=== PATIENT | female | born 1965 | race Caucasian/White ===

== ENCOUNTER 2019-06-25 10:27 | Emergency (ER) | payer OTHER, SELFPAY ==
[2019-06-25 10:36] VITALS: BP 129/70; PULSE 101; RESP 18; TEMP 37.3; O2SAT 100
--- NOTE | 2019-06-25 10:52 | ED.URI ---
HPI - URI/Sore Throat General Chief Complaint: Upper Respiratory Infection Stated Complaint: sore throat/cough/congestion Time Seen by Provider: 06/25/19 10:45 Source: patient and RN notes reviewed Mode of arrival: ambulatory Limitations: no limitations History of Present Illness HPI Narrative: Patient presents today with a one-week history of nasal congestion, postnasal drainage, headache, nonproductive cough, sore throat. Reports that she felt like she was getting better after 5 days, but then worsened again. Reports is sick with similar symptoms. Denies fever, shortness of breath. No history of asthma or COPD. She has been using Tylenol and Delsym with mild relief. She is a non-smoker. She does not vape. MD elicited complaint: cough, nasal congestion and sinus pain Related Data Home Medications Medication Instructions Recorded Confirmed buspirone 10 mg BID 06/25/19 06/25/19 clomipramine 50 mg DAILY 06/25/19 06/25/19 clonazepam 0.5 mg BID 06/25/19 06/25/19 linaclotide [Linzess] 72 mcg DAILY 06/25/19 06/25/19 Allergies Allergy/AdvReac Type Severity Reaction Status Date / Time tramadol Allergy Unknown RASH Verified 10/30/14 08:15 Review of Systems Review of Systems: Narrative: CONSTITUTIONAL: Denies fever, chills, or sweats.+ Body aches EYES: Denies visual changes, redness, or discharge. ENT: Denies rhinorrhea, or otalgia.+ Congestion, sore throat, sinus pressure, postnasal drip, hoarseness CARDIOVASCULAR: Denies chest pain, palpitations, or edema. RESPIRATORY: Denies dyspnea.+ Cough GASTROINTESTINAL: Denies abdominal pain, nausea, vomiting, or diarrhea. GENITOURINARY: Denies dysuria or hematuria. SKIN: Denies rash, itching, or wounds. MUSCULOSKELETAL: Denies back pain, joint pain, or myalgia. NEUROLOGIC: Denies numbness, tingling, or weakness.+ Headache PSYCH: Denies depression or anxiety. [facility] Social History Social History (Updated 06/25/19 @ 10:54 by Radha Faye, COMPOUND WORKER, ) Smoking status: Never smoker Gender identity (if verbalized by the patient): Female Comments At time of signature, I have reviewed and agree with nursing past medical, surgical, social and family history unless otherwise noted. Please see nursing chart for further information. There is no relevant family history pertinent to the presenting complaint Exam Narrative: Exam Narrative: GENERAL: Well-appearing, well-nourished, and in no acute distress. HEAD: Normocephalic, atraumatic. EYES: EOMI. No redness or drainage. Conjunctivae normal. ENT: Mucous membranes pink and moist. Nares congested. Bilateral erythematous and swollen nasal turbinates with purulent discharge. Bilateral TMs are sands and dull. Throat normal. Uvula midline. Mild tenderness to the bilateral maxillary sinuses. No frontal sinus tenderness. NECK: Normal AROM. Supple. No lymphadenopathy. CHEST: No respiratory distress. Clear to auscultation. HEART: Regular rate and rhythm. No murmur appreciated. Normal peripheral pulses. EXTREMITIES: Normal range of motion. No edema. SKIN: Warm, dry, no rash. NEURO: No focal deficits. Alert and oriented x3. Gait steady. PSYCH: Normal affect. No signs of depression or anxiety. Course Vital Signs Vital signs: Vital Signs Temperature 99.2 F 06/25/19 10:36 Pulse Rate 101 H 06/25/19 10:36 Respiratory Rate 18 06/25/19 10:36 Blood Pressure 129/70 06/25/19 10:36 Pulse Oximetry 100 06/25/19 10:36 Temperature 99.2 F 06/25/19 10:36 Pulse Rate 101 H 06/25/19 10:36 Respiratory Rate 18 06/25/19 10:36 Blood Pressure 129/70 06/25/19 10:36 Pulse Oximetry 100 06/25/19 10:36 Reviewed. Pt has been instructed to follow up with her PCP regarding her elevated blood pressure today. MDM - URI/Sore Throat Differential Diagnosis Differential diagnosis: Likely upper respiratory infection, otitis media, sinusitis, viral infection, bronchitis and pharyngitis Critical Care Time Critical
== END 2019-06-25 10:59 | disposition home or self-care (01) ==
PROVIDERS: Emergency Provider Nurse Practitioner
DX: J40 Bronchitis, not specified as acute or chronic (principal); J01.00 Acute maxillary sinusitis, unspecified
CPT/HCPCS: 99203; G0463

== ENCOUNTER 2024-09-21 08:06 | Emergency (ER) | payer OTHER, SELFPAY ==
--- OUTSIDE RECORDS SUMMARY | 2024-09-21 08:08 | XMS_ITS | Clinical Summary ---
Author Organization [facility] al Address [address] [place] [address] Care Team Providers Care Management Retail Intern Name Role Phone RENÉE Berry Jr., Robert James Primary Care Provide r Allergies Active Allergy Reactions Criticality Noted Date Comments Cephalexin Anxiety Low 04/01/2016 Tramadol Rash Medium 11/11/2017 Medications folic acid/multivit -min/lutein (CENTRUM SILVER ORAL) 10/26/2016Centrum silver, po solid 400-250mcg Tablet, chewablePOdailyCurrent Medication 017 Active lutein-zeaxan thin 25-5 mg capsule 10/26/2016Lutein-zeaxanth in, po solid 25 mg-5 mg CapsulePOdailyCurrent Medication 017 Active simethicone (PHAZYME) 180 mg capsule as needed 017 Active cholecalcifer ol (cholecalcife rol) 25 mcg (1,000 unit) tablet 017 Active acetaminophen (TYLENOL EXTRA STRENGTH) 500 mg tablet TAKE 1 TABLET EVERY 4 TO 6 HOURS NEEDED. Active calcium carbonate (Calcium 600) 1,500 mg (600 mg of elemental calcium) tablet 600 mg 2 (two) times a day Active famotidine (PEPCID) 40 mg tablet Active Linzess 145 mcg capsule Active clomiPRAMINE (ANAFRANIL) 50 mg capsuleIndica tions:Anxiety Take 1 capsule (50 mg total) by mouth 3 (three) times a day 270 capsule 1 021 Active hydrOXYzine (ATARAX) 25 mg tablet Active clonazePAM (KlonoPIN) 0.5 mg tabletIndicat ions:Anxiety TAKE 2 TABLETS BY MOUTH TWICE DAILY 120 tablet 1 021 Active busPIRone (BUSPAR) 10 mg tabletIndicat ions:Anxiety TAKE 1 TABLET(10 MG) BY MOUTH THREE TIMES DAILY 90 tablet 11 021 Active meloxicam (MOBIC) 15 mg tabletIndicat ions:Osteoart hritis Take 1 tablet (15 mg total) by mouth daily 30 tablet 5 022 Active Active Problems Problem Noted Date Diagnosed Date Pelvic floor dysfunction in female 05/09/2021 Assessment & Plan (05/09/2021 11:08 AM LONG TERM CARE SOCIAL WORKER): -She reports some help with pelvic floor therapy and continues to practice the exercises and methods to help empty her bladder. -She previously tried tamsulosin for difficulty emptying but doesn't feel it helped. -She is interested in discussing Interstim device for further treatment of her urinary issues. Patient does report she will be moving to [place] early next year. I informed her it may take some time to get in with Dr. Waters and she may want to consider finding someone locally in [place] to do procedure so they can monitor locally. We will schedule her with Dr. Waters for now but she will look for urologist in [place] area. PLAN: -Schedule f/u with Dr. Waters for further discussion of possible Interstim device. -Stop tamsulosin. Voiding dysfunction 01/09/2021 Assessment & Plan (01/09/2021 2:11 PM CDT): -Discussed results of urodynamics testing with patient. She is already on flomax and reports it does seem to help with her voiding. -She reports issues with voiding mostly in the evening before she goes to bed. She states that she will urinate and then a few minutes later is able to void again. As long as she is at home and in comfortable place, she is able to urinate fine. PLAN: -Continue flomax. -Referral to pelvic floor therapy. Urinary retention with incomplete bladder emptyi ng 09/23/2020 Assessment & Plan (09/23/2020 3:18 PM CDT): -Ongoing for about 4 years. -Previously evaluated by outside urologist (Dr. Hemal Bush) who performed testing and placed on tamsulosin. She has been on this medication for several years. She reports that previous testing was years ago and was normal as far as she knows. -She denies flank pain. -Had her try to urinate again and repeated PVR. This was 190mL PLAN: -Continue tamsulosin 0.4mg nightly. -Schedule for urodynamics. -Renal US due to retention and 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 Right arm numbness 09/11/2020 Assessment & Plan (11/19/2020 1:17 PM CDT): Patient continues with neck pain with radiating numbness throughout the right arm. Cervical spondylosis with foraminal stenosis is noted. I will place her through a course of physical therapy. I have asked her to call this office following completion. If she has symptomatic benefit than observation would be appropriate. If she does continue to have ongoing symptoms following physical therapy than a course of cervical epidural steroids could be considered. Assessment & Plan (09/11/2020 9:00 AM CDT): Patient describes fluctuant right arm numbness diffusely following manipulation with physical therapy for a previous right shoulder injury. She does have some accompanying neck pain. EMG/NCS reveals only borderline prolongation in the right median motor DML. Entrapment neuropathy would not account for her diffuse arm symptoms. I will obtain an MRI of the cervical spine to exclude disc herniation which could account for symptoms attributable to cervical radiculopathy. I will see her back thereafter. Class 1 obesity due to exces s calories without serious comorbidity with body mass index (BMI) of 30.0 to 30.9 in adult 12/22/2019 Assessment & Plan (12/22/2019 10:40 AM CDT): Educated patient on healthy diet/exercise plan. Exercise 150min-300min per week of moderate intensity. Diet: good, healthy protein (eggs, nuts, peanut butter, chicken, fish, turkey, less pork/beef), lots of vegetables, less carbohydrates and less sugar. 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 Overview (12/23/2018): diet mountain dew Bilateral carpal tunnel syndrome 05/28/2017 Mass of hand 01/06/2017 Mucous cyst of finger 01/06/2017 Anemia, iron deficiency 10/26/2016 Cystocele, unspecified (CODE) 09/22/2016 Rectocele 09/22/2016 Anxiety 03/30/2016 S/P breast reconstruction 02/12/2016 Breast cancer 12/27/2015 Dorsalgia, unspecified 12/27/2015 Irritable colon 12/27/2015 Congenital spondylolisthesis of lumbar region Depression 09/03/2015 Obsessive-compulsive disorder 09/03/2015 Osteopenia 08/29/2015 Hot flash due to medication 02/14/2015 Malignant neoplasm of breast 03/29/2014 Arthralgia of ankle 06/23/2013 Resolved Problems Problem Noted Date Diagnosed Date Resolved Date Postmenopausal bleeding 12/23/201812/22 Hot flashes 01/06/2018 12/22/2019 Vaginal odor 10/15/2017 12/22/2019 Screening for malignant neoplasm of cervix 12/27/2015 12/22/2019 Absence of breast 07/30/2015 03/18/2021 Hypoglycemia 10/07/2013 07/08/2018 Overview (08/27/2016): HYPOGLYCEMIA NOS Impaired fasting glucose 10/07/2013 Overview (08/27/2016): IMPAIRED FASTING GLUCOSE Vitamin D deficiency 10/07/2013 019 Overview (08/27/2016): VITAMIN D DEFICIENCY NOS Encounters Date Type Department Care Team Description 09/07/2024 Telephone [facility] Ophthalmology [address] [place] [address] Jai Padron MD new pt from Last 3 Months Immunizations Immunization Administration Dates Next Due Hep B Vaccine 07/10/1993,03/05/1993,01/29/1993 Influenza, Quadrivalent, Aleksandra l Culture-based MDCK, Preservative Free, Antibiotic Free, Intramuscular 03/09/2019 Influenza, Quadrivalent, Hig h Dose, Preservative Free, Intrr 03/19/2021 Influenza, Quadrivalent, Spl it, Preservative Free, Intramuscular 02/06/2020,02/14/2018,02/13/2018,02/22 Influenza, Trivalent, IM (MDV) 03/01/2014 Influenza, Trivalent, Preser vative Free, Intramuscular 03/04/2016 Influenza, Unspecified 10/26/2016,2015,10/30/2015,07/30,12/17/2014,10/29/2014 MMR 03/05/2004,01/30/2004 OPV 10/24/1993 PPD TEST 09/21/2017 Pfizer SARS-CoV-2 Monovalent Vaccination (12+ Yrs) PURPLE 09/06/2020,08/16/2020 Td, adsorbed 10/21/1999,10/01/1999,02/28/1990 Tdap 11/10/2017,11/09/2017,09/05/2009 ZOSTER LIVE 10/26/2016, 6,10/30/2015,07/30 ZOSTER Recombinant 07/11/2018,03/31/2018 Surgical History Surgery Date Site/Laterality Comments BACK SURGERY Back Surgery - (Added by TW Conv) MASTECTOMY Breast Surgery Mastectomy - (Added by TW Conv) BREAST SURGERY Breast Surgery Reconstruction - (Added by TW Conv) BREAST BIOPSY CARPAL TUNNEL RELEASE Medical History Medical History Date Comments Anxiety disorder Anxiety and dep ression - (Added by TW Conv) Personal history of diseases of the blood and blood-forming organs and certain disorders involving the immune mechanism History of an emia - (Added by TW Conv) Personal history of other me dical treatment History of blood transfusion - (Added by TW Conv) Disease of intestine Bowel troub le - (Added by TW Conv) Personal history of other di seases of the musculoskeletal system and connective tissue History of arthritis - (Adde d by TW Conv) Breast cancer (HCC) Depression Hypertension Family History Medical History Relation Name Comments Diabetes Brother Family history of diabetes mellitus - (Added by TW Conv) Lung cancer Father Family history of lung cancer - (Added by TW Conv) Diabetes Maternal Grandfather Family history of diabetes mellitus - Relation: Grandfather (Added by TW Conv) Hypertension Mother Family history of hypertension - (Added by TW Conv) Osteoporosis Mother Family history of osteoporosis - (Added by TW Conv) Diabetes type II Other Family hist ory of Diabetes -Type 2; Parkinsonism Paternal Grandmother Parkinsonism Paternal cousin first Anxiety disorder Sister Depression Sister Relation Name Status Comments Brother Alive Daughter Alive Father Maternal Grandfather Mother Alive Other Paternal Grandmother Paternal cousin first Sister Alive Social History Tobacco Use Types Packs/Day Years Used Date Smoking Tobacco: Never Smokeless Tobacco: Never Alcohol Use Standard Drinks/Week Comments No 0 (1 standard drink = 0.6 oz pur e alcohol) AUDIT-C Answer Date Recorded Q1: How often do you have a drink containing alc ohol? Never 04/01/2021 Average Number of Drinks Not on file 021 Q3: How often do you have si x or more drinks on one occasion? Never 04/01/2021 PHQ-2 Answer Date Recorded PHQ-2 Total Score (If total score is 3 or more points, staff should administer the PHQ-9) 0 05/02/2021 Comments No Sex and Gender Information Value Date Recorded Sex Assigned at Not on file Legal Sex Female 1:17 AM LONG TERM CARE SOCIAL WORKER Gender Identity Not on file Sexual Orientation Not on file Obstetrics History Para Term AB IAB SAB Ectopic Multiple Livin g Live Births 4 4 4 4 4 Date Outcome GA Total Labor Labor/2nd/3rd Weight Sex Type Anes PTL Elizabeth A1 A5 Name Clin 1983 Term 3.719 kg (8 lb 3.2 oz) Vag-S pont Living Complications:None 1986 Term 3.692 kg (8 lb 2.2 oz) M Vag-S pont Living Complications:None 1989 Term 3.683 kg (8 lb 1.9 oz) M Vag-S pont Living 1991 Term 3.719 kg (8 lb 3.2 oz) F Vag-S pont Living Complications:None Comments 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 G4,P4. LMP 04/2014. Last Filed Vital Signs Vital Sign Reading Time Taken Comments Blood Pressure 136/87 05/30/2021 11:15 AM LONG TERM CARE SOCIAL WORKER Pulse 90 05/30/2021 11:15 AM LONG TERM CARE SOCIAL WORKER Temperature 36.3 C (97.3 F) 05/30/2021 11:15 AM LONG TERM CARE SOCIAL WORKER Respiratory Rate 16 05/30/2021 11:1 5 AM LONG TERM CARE SOCIAL WORKER Oxygen Saturation 99% 05/30/2021 11: 15 AM LONG TERM CARE SOCIAL WORKER Inhaled Oxygen Concentration - - Weight 84.7 kg (186 lb 12.8 oz) 022 11:15 AM LONG TERM CARE SOCIAL WORKER Height 159.5 cm (5' 2.8 ) 05/30/2021 11 :15 AM LONG TERM CARE SOCIAL WORKER Body Mass Index 33.31 05/30/2021 11:15 AM LONG TERM CARE SOCIAL WORKER Plan of Treatment Health Maintenance Due Date Last Done Comments Hepatitis C Screening 1965 Cervical Cancer Screening 01/06/2020 01/05/2019, 09/2015 Regular Well Visit/Exam 18-64 03/19/2022 03/19/2021, 12/31/2020, 02/06/2020, Additional history exists Depression Screening 05/02/2022 05/02/2021, 04/01/2021, 03/19/2021, Additional history exists Covid-19 Vaccine ( season) 2024 04/30/2021, 09/06/2020, 08/16/2020 Influenza Vaccine (Season Ended) 2025 03/20/2022, 03/19/2021, 02/06/2020, Additional history exists Colon Cancer Screening-Colonoscopy 03/14/2025 03/14/2015 DTaP/Tdap/Td Vaccine (4 - Td or Tdap) 11/11/2027 11/10/2017, 11/09/2017, 09/05/2009, Additional history exists Hepatitis B Screening Completed 07/10/1993 , 03/05/1993, 01/29/1993 Colon Cancer Screening-CT Colonography Discontinued 03/14/2015 Colon Cancer Screening-DNA Stool Discontinued 03/14/2015 Colon Cancer Screening-FIT Discontinued 03/14/2015 Colon Cancer Screening-Sigmoidoscopy Discontinued 03/14/2015 Breast Cancer Screening-Mammogram Discontinued 06/09/2017 Zoster Vaccine Completed 07/11/2018, 11/0 12/2017, 10/26/2016, Additional history exists Pneumococcal vaccine <65 Aged Out No longer eligible based on patient's age to complete this topic Procedures Procedure Name Priority Date/Time Associated Diagnosis Comments PAP SMEAR WITH HPV Routine 01/05/2019 SCREENING MAMMOGRAM Routine 06/09/2017 8 :07 PM LONG TERM CARE SOCIAL WORKER COLONOSCOPY Routine 03/14/2015 from Last 3 Months or Most Recently Relevant to Health Maintenance Results * PAP SMEAR WITH HPV (01/05/2019) HM Pap smear Normal us Historical Provider MD HEALTH MAINTENANCE Final Result * Screening Mammogram (06/09/2017 8:07 PM LONG TERM CARE SOCIAL WORKER) Anatomical Region Laterality Modality Breast N/A Mammography 06/09/2017 8:07 PM LONG TERM CARE SOCIAL WORKER Narrative 06/09/2017 10:46 PM LONG TERM CARE SOCIAL WORKER SUSIE BRO M.D. FINAL REPORT ACC# Date Time Exam [id number] Jun 09, 2017 15:04:00 [facility] [id number] Chest Sonogram L [id number] Jun 09, 2017 14:07:00 [facility] [id number] [employer] CAD, unilat L Technologist(s): June Ennis; ; EXAMINATION: LEFT UNILATERAL DIGITAL DIAGNOSTIC MAMMOGRAM INCLUDING CAD HISTORY: This is a 51-year-old status post bilateral mastectomies in 2013. She currently has silicone implants and feels a bubble for several months over the left chest COMPARISON: None TECHNIQUE: Full field digital mammographic views of the LEFT breast were performed, including computer aided detection (CAD). BREAST PARENCHYMAL COMPOSITION: The breasts are almost entirely fatty. MAMMOGRAM FINDINGS: Metallic markers were placed over the area palpable concern. A silicone implant is seen in very scant tissue is noted. To the extent of visualization there are no suspicious findings. In particular, there is no mammographic abnormality to correlate with the area palpable concern in the left. Left breast sonogram: Examination of the area palpable concern reveals numerous implant radial folds which correlate with palpable abnormality. In the scant amount of tissue present, there is no suspicious mass seen. IMPRESSION: The area palpable concern in the left chest is consistent with palpating radial folds in the silicone implant. There are no suspicious masses. OVERALL FINAL ASSESSMENT: BI-RADS Category 1: Negative. Continued clinical follow-up is recommended. This has been discussed with the patient. Electronically signed by: Susie Bro M.D. Requested By: Swati Mi M.D. Dictated By: SUSIE BRO M.D. on Jun 09 2017 4:44P This document has been electronically signed by: SUSIE BRO M.D. on Jun 09 2017 4:44P [id number] BRO M.D. FINAL REPORT Attending: SWATI MI Requesting: Swati Mi Requesting Fax: Attending Fax: Attending ID: [id number] Requesting ID: [id number] Report To 1 ID: [id number] Report To 1 Name: , Report To 1 FAX: NextGen Order #: Procedure Note Miscellaneous, Not In File - 06/09/2017 SUSIE BRO M.D. FINAL REPORT ACC# Date Time Exam [id number] Jun 09, 2017 15:04:00 [facility] [id number] Chest Sonogram L [id number] Jun 09, 2017 14:07:00 [facility] [id number] [employer] CAD, unilat L Technologist(s): June Ennis; ; EXAMINATION: LEFT UNILATERAL DIGITAL DIAGNOSTIC MAMMOGRAM INCLUDING CAD HISTORY: This is a 51-year-old status post bilateral mastectomies in 2013. She currently has silicone implants and feels a bubble for several months over the left chest COMPARISON: None TECHNIQUE: Full field digital mammographic views of the LEFT breast were performed, including computer aided detection (CAD). BREAST PARENCHYMAL COMPOSITION: The breasts are almost entirely fatty. MAMMOGRAM FINDINGS: Metallic markers were placed over the area palpable concern. A silicone implant is seen in very scant tissue is noted. To the extent of visualization there are no suspicious findings. In particular, there is no mammographic abnormality to correlate with the area palpable concern in the left. Left breast sonogram: Examination of the area palpable concern reveals numerous implant radial folds which correlate with palpable abnormality. In the scant amount of tissue present, there is no suspicious mass seen. IMPRESSION: The area palpable concern in the left chest is consistent with palpating radial folds in the silicone implant. There are no suspicious masses. OVERALL FINAL ASSESSMENT: BI-RADS Category 1: Negative. Continued clinical follow-up is recommended. This has been discussed with the patient. Electronically signed by: Susie Bro M.D. Requested By: Swati Mi M.D. Dictated By: SUSIE BRO M.D. on Jun 09 2017 4:44P This document has been electronically signed by: SUSIE BRO M.D. on Jun 09 2017 4:44P [id number] BRO M.D. FINAL REPORT Attending: SWATI MI Requesting: Swati Mi Requesting Fax: Attending Fax: Attending ID: [id number] Requesting ID: [id number] Report To 1 ID: [id number] Report To 1 Name: , Report To 1 FAX: NextGen Order #: [id number] Mi MD IMG MAMMO PROCEDURES Final Result * Colonoscopy (03/14/2015) Anatomical Region Laterality Modality Other Historical Provider ENDOSCOPY PROCEDURES Dorene l Result from Last 3 Months or Most Recently Relevant to Health Maintenance Insurance [facility] CLAIMS COMMERCIAL GENERIC Member Subscriber Plan / Payer (Ef fective 2018-Present) Name:Lyubov Steinberg Relation to Subscriber:Self Name:IdrisLyubov szymanski Payer ID:[id number] Type:COMMERCIAL Address: [place] [id number] COMMERCIAL GENERIC Member Subscriber Plan / Payer ( fective 2018-Present) Name:Lyubov Steinberg Relation to Subscriber:Self Name:LYUBOV STEINBERG Payer ID:[id number] Type:COMMERCIAL Address: [place] [id number] Care Teams Management Retail Intern Relationship Specialty Start Date End Date Barney Berry Jr., PA [address] [place] [id number] PCP - General 07/29/16
--- OUTSIDE RECORDS SUMMARY | 2024-09-21 08:08 | XMS_ITS | Encounter Summary ---
Author Organization [facility] Care Team Providers Care Drier Attendant Name Role Phone RENÉE Berry Jr., Barney Odom Primary Care Provide r Encounter Details Date Type Department Care Team (Latest Contact Info) Description 09/30/2015 Orders Only [facility] CLINCONV Provider, MD Lesli [address] [place] [id number] Social History Tobacco Use Types Packs/Day Years Used Date Smoking Tobacco: Never Assessed Alcohol Use Standard Drinks/Week Comments No 0 (1 standard drink = 0.6 oz pur e alcohol) Comments Unknown Sex and Gender Information Value Date Recorded Sex Assigned at Not on file Legal Sex Female 1:17 AM CREDIT REPORT CHECKER Gender Identity Not on file Sexual Orientation Not on file documented as of this encounter Plan of Treatment Not on file documented as of this encounter Procedures Procedure Name Priority Date/Time Associated Diagnosis Comments CARDIOLOGY REPORT 09/30/2015 12: 00 AM CDT documented in this encounter Results * CARDIOLOGY REPORT (09/30/2015 12:00 AM CDT) Anatomical Region Laterality Modality Other Narrative 09/30/2015 12:00 AM CDT Ordered by an unspecified provider. Historical Provider [facility] NATACHA SRINIVASAN Final Result documented in this encounter Visit Diagnoses Not on filedocumented in this encounter Care Teams Drier Attendant Relationship Specialty Start Date End Date Barney Berry Jr., PA [facility] [address] PCP - General 07/29/16 documented as of this encounter
--- OUTSIDE RECORDS SUMMARY | 2024-09-21 08:08 | XMS_ITS | Clinical Summary ---
Author Organization [facility] Address [address] [place] [address] Care Team Providers Care Business Manager Name Role Phone Unavailable Primary Care Provider Unavailabl e Source Comments [facility],non-owned Affiliates and Associated Physician Practices is amultiple site organization consisting of ambulatory clinics and hospital sitesin [place], [place], [place] and [place]. This disclosure is being madepursuant to the Care Everywhere program and may not contain all information available regarding this patient. Last updated 18.[facility] [employer] Social History Tobacco Use Types Packs/Day Years Used Date Smoking Tobacco: Never Assessed Comments Unknown Sex and Gender Information Value Date Recorded Sex Assigned at Not on file Legal Sex Female 7:07 PM TECHNICAL PROGRAMS MANAGER Gender Identity Not on file Sexual Orientation Not on file Plan of Treatment Health Maintenance Due Date Last Done Comments COLOGUARD (AGES 45-75) - COLON CA SCREENING 1963 COLON MONITORING 1963 COLONOSCOPY - COLON CA SCREENING 1963 CT COLONOGRAPHY - COLON CA SCREENING 1963 Colorectal Cancer Screening 1963 FIT - COLON CA SCREENING 1963 FLEX SIG - COLON CA SCREENING 1963 MAMMOGRAM 1963 HIV SCREENING 10/02/1978 DTAP/TDAP/TD VACCINES (1 - Tdap) 10/02/1982 PNEUMOCOCCAL VACCINE 50+ (1 of 1 - PCV) 10/02/2013 ZOSTER VACCINE (1 of 2) 10/02/2013 COVID-19 VACCINE ( season) 2024 06/01/2022, 09/06/2020, 08/16/2020 DEPRESSION SCREENING 05/24/2024 PAP SMEAR 03/22/2026 03/22/2023, 03/22/2023 LIPID TESTING 07/26/2029 07/26/2024 Respiratory Syncytial Virus (RSV) Vaccine Pt: or over 60 yrs (1 - 1-dose 75+ series) 10/02/2038 INFLUENZA VACCINE Completed 02/15/2024, , 02/06/2020, Additional history exists HEPATITIS C SCREENING Completed 08/31/2024 HEPATITIS B VACCINE Aged Out No longe r eligible based on patient's age to complete this topic HIB VACCINE Aged Out No longer eligi ble based on patient's age to complete this topic HPV VACCINE Aged Out No longer eligi ble based on patient's age to complete this topic MENINGOCOCCAL (Group B) VACCINE SHARED DECISION-MAKING Aged Out No longer eligible based on patient's age to complete this topic MENINGOCOCCAL GROUPS A/C/Y/W VACCINE Aged Out No longer eligible based on patient's age to complete this topic Insurance [facility]
--- OUTSIDE RECORDS SUMMARY | 2024-09-21 08:08 | XMS_ITS | Encounter Summary ---
Author Organization [facility] Facility Care Team Providers Care Solar Energy System Installer Helper Name Role Phone RENÉE Berry Jr., Barney Odom Primary Care Provide r Encounter Details Date Type Department Care Team (Latest Contact Info) Description 05/12/2016 Orders Only [facility] CLINCONV Provider, MD Lesli [address] [place] [address] Social History Tobacco Use Types Packs/Day Years Used Date Smoking Tobacco: Never Assessed Alcohol Use Standard Drinks/Week Comments No 0 (1 standard drink = 0.6 oz pur e alcohol) Comments Unknown Sex and Gender Information Value Date Recorded Sex Assigned at Not on file Legal Sex Female 1:17 AM ESTATE PLANNING ATTORNEY Gender Identity Not on file Sexual Orientation Not on file documented as of this encounter Plan of Treatment Not on file documented as of this encounter Procedures Procedure Name Priority Date/Time Associated Diagnosis Comments PROCEDURE - RESULT 05/12/2016 12 :00 AM ESTATE PLANNING ATTORNEY PROCEDURE - RESULT 05/12/2016 12 :00 AM ESTATE PLANNING ATTORNEY documented in this encounter Results * PROCEDURE - RESULT (05/12/2016 12:00 AM ESTATE PLANNING ATTORNEY) Narrative 05/12/2016 12:00 AM ESTATE PLANNING ATTORNEY Ordered by an unspecified provider. Historical Provider Final Res ult * PROCEDURE - RESULT (05/12/2016 12:00 AM ESTATE PLANNING ATTORNEY) Narrative 05/12/2016 12:00 AM ESTATE PLANNING ATTORNEY Ordered by an unspecified provider. us Historical Provider MD Final Res ult documented in this encounter Visit Diagnoses Not on filedocumented in this encounter Care Teams Solar Energy System Installer Helper Relationship Specialty Start Date End Date Barney Berry Jr., PA [address] [place] [id number] PCP - General 07/29/16 documented as of this encounter
--- OUTSIDE RECORDS SUMMARY | 2024-09-21 08:08 | XMS_ITS | Clinical Summary ---
Author Organization [facility] Address [address] [place] [address] Care Team Providers Care Dot Etcher Apprentice Name Role Phone Unavailable Primary Care Provider Unavailabl e Social History Tobacco Use Types Packs/Day Years Used Date Smoking Tobacco: Never Assessed Comments Unknown Sex and Gender Information Value Date Recorded Sex Assigned at Not on file Legal Sex Female 7:33 PM CDT Gender Identity Not on file Sexual Orientation Not on file Plan of Treatment Health Maintenance Due Date Last Done Comments Cervical Cancer Screening Pa p Smear (Age 30 to 64) Every 3 Years 1963 Colorectal Cancer Screening Colonoscopy (10 Years) 1963 Annual Physical 10/02/1966 Hepatitis C 10/02/1981 DTaP, Tdap and Td Vaccines ( 1 - Tdap) 10/02/1982 Cervical Cancer Screening Pa p with HPV Testing (Age 30 to 64) Every 5 Years 10/02/1993 Cervical Cancer Screening with HPV 10/02/1993 Mammogram Screening 2003 Pneumococcal Vaccine: 50+ Ye ars (1 of 1 - PCV) 10/02/2013 Zoster Vaccines (1 of 2) 10/02/2013 COVID-19 Vaccine (2023-2 5 season) 2024 RSV Immunization or 60+ Years (1 - 1-dose 75+ series) 10/02/2038 Meningococcal B Vaccine Aged Out No l onger eligible based on patient's age to complete this topic Meningococcal Vaccine Aged Out No lizandro rosie eligible based on patient's age to complete this topic RSV Immunizations Under 20 Months Aged Out No longer eligible based on patient's age to complete this topic
--- OUTSIDE RECORDS SUMMARY | 2024-09-21 08:08 | XMS_ITS ---
Author Organization [facility] Address [address] [place] [address] Care Team Providers Care Fire Extinguisher Sprinkler Inspector Name Role Phone RENÉE Berry Jr., Barney Odom Primary Care Provide r Active Problems Problem Noted Date Diagnosed Date Pelvic floor dysfunction in female 05/09/2021 Assessment & Plan (05/09/2021 11:08 AM MENTAL HEALTH ASSOCIATE): -She reports some help with pelvic floor therapy and continues to practice the exercises and methods to help empty her bladder. -She previously tried tamsulosin for difficulty emptying but doesn't feel it helped. -She is interested in discussing Interstim device for further treatment of her urinary issues. Patient does report she will be moving to [place] early next year. I informed her it may take some time to get in with Dr. Waters and she may want to consider finding someone locally in [place] to do procedure so they can monitor locally. We will schedule her with Dr. Waters for now but she will look for urologist in [place] area. PLAN: -Schedule f/u with Dr. Waters [...] of vegetables, less carbohydrates and less sugar. 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 Past Treatment and Therapy Plans Oncology Chemotherapy Treatment Plan Name Start Date Discontinue Date Treatment Medications Discontinue Reason Plan Provider Cycles Goserelin 28 Day Cycles - Breast 8 05/21/2023 goserelin (ZOLADEX) Automatic discontinuation of dormant plans Amy Thompson MD 21 of 21 cycles started Oncology Supportive Care Plan Name Start Date Discontinue Date Treatment Medications Discontinue Reason Plan Provider ZOLEDRONIC ACID (ZOMETA) INFUSION 06/12/2019 08/03/2023 No medications scheduled. Automatic discontinuation of dormant plans Deidra Shankar NP Specialty Infusion Treatment Plan Name Start Date Discontinue Date Treatment Medications Discontinue Reason Plan Provider DENOSUMAB (PROLIA) INJECTION 11/11/2017 06/01/2019 No medications scheduled. Therapy Complete Amy Thompson MD Resolved Problems Problem Noted Date Diagnosed Date [...]
--- OUTSIDE RECORDS SUMMARY | 2024-09-21 08:08 | XMS_ITS | Encounter Summary ---
Author Organization [facility] Facility Care Team Providers Care Elect Equip Maint Eng Name Role Phone RENÉE Berry Jr., Barney Odom Primary Care Provide r Encounter Details Date Type Department Care Team (Latest Contact Info) Description 08/04/2017 Orders Only [facility]G CLINCONV Provider, MD Lesli [address] [place] [address] Social History Tobacco Use Types Packs/Day Years Used Date Smoking Tobacco: Never Alcohol Use Standard Drinks/Week Comments No 0 (1 standard drink = 0.6 oz pur e alcohol) Comments Unknown Sex and Gender Information Value Date Recorded Sex Assigned at Not on file Legal Sex Female 1:17 AM WASTE SPECIALIST Gender Identity Not on file Sexual Orientation Not on file documented as of this encounter Plan of Treatment Not on file documented as of this encounter Procedures Procedure Name Priority Date/Time Associated Diagnosis Comments PROCEDURE - RESULT 08/04/2017 12 :00 AM CDT documented in this encounter Results * PROCEDURE - RESULT (08/04/2017 12:00 AM CDT) Narrative 08/04/2017 12:00 AM CDT Ordered by an unspecified provider. Historical Provider Final Res ult documented in this encounter Visit Diagnoses Not on filedocumented in this encounter Care Teams Elect Equip Maint Eng Relationship Specialty Start Date End Date Barney Berry Jr., PA [facility] [address] PCP - General 07/29/16 documented as of this encounter
--- OUTSIDE RECORDS SUMMARY | 2024-09-21 08:08 | XMS_ITS | Encounter Summary ---
Author Organization [facility] Address [address] [place] [address] Care Team Providers Care Operations Logistics Analyst Name Role Phone Unavailable Primary Care Provider Unavailabl e Encounter Details Date Type Department Care Team (Late st Contact Info) Description 10/14/2020 Lab Requisition [facility] [address] [place] [id number] Titus Ruby MD [address] [place] [address] Social History Tobacco Use Types Packs/Day Years Used Date Smoking Tobacco: Never Assessed Comments Unknown Sex and Gender Information Value Date Recorded Sex Assigned at Not on file Legal Sex Female 7:07 PM BUILDING SERVICES COORDINATOR Gender Identity Not on file Sexual Orientation Not on file documented as of this encounter Plan of Treatment Not on file documented as of this encounter Procedures Procedure Name Priority Date/Time Associated Diagnosis Comments DERMATOPATHOLOGY Routine 10/10/2020 12:0 0 AM CDT documented in this encounter Results * DERMATOPATHOLOGY (10/10/2020 12:00 AM CDT) Case Report Dermatopathology Report Case: [id number] Authorizing Provider: Titus Ruby MD Collected: 10/10/2020 12:00 AM Ordering Location: [facility] Received: 10/14/2020 06:15 AM Pathologist: Fawad Fink MD Specimen: Skin, right nasal sw 05/25/202 1 4:37 PM CDT DERMATOPATHOLOGY LABORATORY Final Diagnosis Specimen A. SKIN, right nasal sw: BASAL CELL CARCINOMA, NODULAR TYPE (C44.311) 4:37 PM CDT DERMATOPATHOLOGY LABORATORY Clinical History AK vs BCCA. Path#[id number] 4:37 PM CDT DERMATOPATHOLOGY LABORATORY Gross Description Specimen A: Received is one formalin filled container labeled with the patient's name and designated right nasal sw. The specimen consists of a shave biopsy measuring 6x4x1 mm. Jar 0. 4:37 PM CDT DERMATOPATHOLOGY LABORATORY Microscopic Description Specimen A. SKIN, right nasal sw: Within the dermis there are aggregates of basaloid cells with a high nuclear to cytoplasmic ratio and peripheral palisading. 4:37 PM CDT DERMATOPATHOLOGY LABORATORY Disclaimer An external and internal positive and negative controls are appropriate for the histochemical, immunohistochemical and immunofluorescence stain(s) in this case (if any), except where stated explicitly. The performance characteristics of the stain(s) cited in this report were developed and its performance characteristic determined by the Dermatopathology Laboratory at [facility], directed by Dr. Ericka Fink. These tests need not be, and therefore are not, approved by the [place] Food and Drug Administration. The tests are used for clinical purposes. Billing Codes Specimen Charges Stain Charges 80458 1 4:37 PM CDT DERMATOPATHOLOGY LABORATORY Embedded Images 4:37 PM CDT DERMATOPATHOLOGY LABORATORY Pathology/Cytolog y TISSUE SPECIMEN FROM SKIN / Unknown 10/10/2020 10/14/2020 6:15 AM CDT us Titus Ruby MD LAB - PATHOLOGY/CYTOLOGY ORDER DEVIN Final Result DERMATOPATHOLOGY LABORATORY [facility] - Department of Dermatology [address] [place] [address], [place] [phone] documented in this encounter Visit Diagnoses Not on filedocumented in this encounter
--- OUTSIDE RECORDS SUMMARY | 2024-09-21 08:08 | XMS_ITS | Encounter Summary ---
Author Organization [facility] Facility Care Team Providers Care Service Associate Name Role Phone RENÉE Berry Jr., Barney Odom Primary Care Provide r Encounter Details Date Type Department Care Team (Latest Contact Info) Description 09/14/2017 Orders Only MMG CLINCONV Provider, MD Lesli [address] [place] [address] Social History Tobacco Use Types Packs/Day Years Used Date Smoking Tobacco: Never Alcohol Use Standard Drinks/Week Comments No 0 (1 standard drink = 0.6 oz pur e alcohol) Comments Unknown Sex and Gender Information Value Date Recorded Sex Assigned at Not on file Legal Sex Female 1:17 AM FREIGHT SALES 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 Historical Provider Final Res ult documented in this encounter Visit Diagnoses Not on filedocumented in this encounter Care Teams Service Associate Relationship Specialty Start Date End Date Barney Berry Jr., PA [facility] [address] PCP - General 07/29/16 documented as of this encounter
--- OUTSIDE RECORDS SUMMARY | 2024-09-21 08:08 | XMS_ITS | Clinical Summary ---
Author Organization [facility] Address [address] [place] [phone] Phone Care Team Providers Care Product Safety Manager Name Role Phone Unavailable Primary Care Provider Unavailabl e Active Problems No known active problems Social History Tobacco Use Types Packs/Day Years Used Date Smoking Tobacco: Never Assessed Comments Unknown Sex and Gender Information Value Date Recorded Sex Assigned at Not on file Legal Sex Female 11:04 PM CDT Gender Identity Not on file Sexual Orientation Not on file Plan of Treatment Health Maintenance Due Date Last Done Comments HPV/Cotest (21-29) 10/02/1984 CERVICAL CANCER SCREENING 10/02/1993 HPV/Cotest (30-65) 10/02/1993 PAP SMEAR 10/02/1993 COLORECTAL SCREENING 10/02/2008 Colorectal Cancer Screening 10/02/2008 FIT-DNA Q 3 years 10/02/2008 FIT/FOBT Q 1 year 10/02/2008 Flex Sig/CT Colonography Q 5 years 10/02/2008 ZOSTER VACCINE (1 of 2) 10/02/2013 INFLUENZA VACCINE (#1) 2023 9, 02/14/2018, 02/13/2018, Additional history exists DTAP/TDAP/TD VACCINES (4 - Td or Tdap) 11/11/2027 11/10/2017, 11/09/2017, 09/05/2009 RSV VACCINE (60+ or ) (1 - 1-dose 75+ series) 10/02/2038 HEPATITIS B VACCINES Aged Out 07/10/1993, 03/05/1993, 01/29/1993 No longer eligible based on patient's age to complete this topic Insurance [facility] Address: [address] [place] [address]
--- OUTSIDE RECORDS SUMMARY | 2024-09-21 08:08 | XMS_ITS | Referral Summary ---
Author Organization [facility] Address [address] [place] [address] Care Team Providers Care Replanting Machine Operator Name Role Phone RENÉE Berry Jr., Robert James Primary Care Provide r Encounters Date Type Department Care Team Description 09/07/2024 Telephone [facility] Ophthalmology [address] [place] [address] Jai Padron MD new pt from Last 3 Months Allergies Active Allergy Reactions Criticality Noted Date [...] (three) times a day 270 capsule 1 Active hydrOXYzine (ATARAX) 25 mg tablet Active clonazePAM (KlonoPIN) 0.5 mg tabletIndicat ions:Anxiety TAKE 2 TABLETS BY MOUTH TWICE DAILY 120 tablet 1 Active busPIRone (BUSPAR) 10 mg tabletIndicat ions:Anxiety TAKE 1 TABLET(10 MG) BY MOUTH THREE TIMES DAILY 90 tablet 11 021 Active meloxicam (MOBIC) 15 mg tabletIndicat ions:Osteoart hritis Take 1 tablet (15 mg total) by mouth daily 30 tablet 5 022 Active Active Problems Problem Noted Date Diagnosed Date Pelvic floor dysfunction in female 05/09/2021 Assessment & Plan (05/09/2021 11:08 AM INSTRUMENTATION AND CONTROLS DESIGNER): -She reports some help with pelvic floor therapy and continues to practice the exercises and methods to help empty her bladder. -She previously tried tamsulosin for difficulty emptying but doesn't feel it helped. -She is interested in discussing Interstim device for further treatment of her urinary issues. Patient does report she will be moving to [place] early next year. I informed her it may take some time to get in with Dr. Waters and she may want to consider finding someone locally in [place] to do procedure so they can monitor locally. We will schedule her with Dr. Waters for now but she will look for urologist in [place] area. PLAN: -Schedule f/u with Dr. Waters [...] of vegetables, less carbohydrates and less sugar. intermediate current use of aromatase inhibitor 02/2020 ER+ [...] 019 Overview (08/27/2016): VITAMIN D DEFICIENCY NOS Immunizations Immunization Administration Dates Next Due Hep [...] ZOSTER LIVE 10/26/2016, 6,10/30/2015,07/30 ZOSTER Recombinant 07/11/2018,03/31/2018 Social History Tobacco Use Types Packs/Day Years [...] on file Legal Sex Female 1:17 AM INSTRUMENTATION AND CONTROLS DESIGNER Gender Identity Not on file Sexual Orientation Not on file Last Filed Vital Signs Vital Sign Reading Time Taken Comments Blood Pressure 136/87 05/30/2021 11:15 AM INSTRUMENTATION AND CONTROLS DESIGNER Pulse 90 05/30/2021 11:15 AM INSTRUMENTATION AND CONTROLS DESIGNER Temperature 36.3 C (97.3 F) 05/30/2021 11:15 AM INSTRUMENTATION AND CONTROLS DESIGNER Respiratory Rate 16 05/30/2021 11:1 5 AM INSTRUMENTATION AND CONTROLS DESIGNER Oxygen Saturation 99% 05/30/2021 11: 15 AM INSTRUMENTATION AND CONTROLS DESIGNER Inhaled Oxygen Concentration - - Weight 84.7 kg (186 lb 12.8 oz) 022 11:15 AM INSTRUMENTATION AND CONTROLS DESIGNER Height 159.5 cm (5' 2.8 ) 05/30/2021 11 :15 AM INSTRUMENTATION AND CONTROLS DESIGNER Body Mass Index 33.31 05/30/2021 11:15 AM INSTRUMENTATION AND CONTROLS DESIGNER Plan of Treatment Not on file Procedures Procedure Name Priority Date/Time Associated Diagnosis Comments HM PAP SMEAR WITH HPV Routine 01/05/2019 SCREENING MAMMOGRAM Routine 06/09/2017 8 :07 PM INSTRUMENTATION AND CONTROLS DESIGNER COLONOSCOPY Routine 03/14/2015 from Last 3 Months or Most Recently Relevant to Health Maintenance Results * HM PAP SMEAR WITH HPV (01/05/2019) HM Pap smear Normal us Historical Provider HEALTH MAINTENANCE Final Result * Screening Mammogram (06/09/2017 8:07 PM INSTRUMENTATION AND CONTROLS DESIGNER) Anatomical Region Laterality Modality Breast N/A Mammography 06/09/2017 8:07 PM INSTRUMENTATION AND CONTROLS DESIGNER Narrative 06/09/2017 10:46 PM INSTRUMENTATION AND CONTROLS DESIGNER SUSIE BRO M.D. FINAL REPORT ACC# Date Time Exam [id number] Jun 09, 2017 15:04:00 [facility] [id number] Chest Sonogram L [id number] Jun 09, 2017 14:07:00 [facility] [id number] Diag Mamm, inc CAD, unilat L Technologist(s): [...] BRO M.D. on Jun 09 2017 4:44P [id number] BRO M.D. FINAL REPORT Attending: SWATI MI Requesting: Swati Mi Requesting Fax: Attending Fax: Attending ID: [id number] Requesting ID: [id number] Report To 1 ID: [id number] Report To 1 Name: , Report To 1 FAX: NextGen Order #: Procedure Note Miscellaneous, Not In File - 06/09/2017 SUSIE BRO M.D. FINAL REPORT ACC# Date Time Exam [id number] Jun 09, 2017 15:04:00 [facility] [id number] Chest Sonogram L [id number] Jun 09, 2017 14:07:00 [facility] [id number] Diag Mamm, inc CAD, unilat L Technologist(s): [...] BRO M.D. on Jun 09 2017 4:44P [id number] BRO M.D. FINAL REPORT Attending: SWATI MI Requesting: Swati Mi Requesting Fax: Attending Fax: Attending ID: [id number] Requesting ID: [id number] Report To 1 ID: [id number] Report To 1 Name: , Report To 1 FAX: NextGen Order #: Swati Mi MD IMG MAMMO PROCEDURES Final Result * Colonoscopy (03/14/2015) Anatomical Region Laterality Modality Other Historical Provider ENDOSCOPY PROCEDURES Dorene l Result from Last 3 Months or Most Recently Relevant to Health Maintenance Insurance [employer] COMMERCIAL GENERIC Member Subscriber Plan / Payer (Ef fective 2018-Present) Name:Lyubov Steinberg Relation to Subscriber:Self Name:LYUBOV STEINBERG Payer ID:[id number] Type:COMMERCIAL Address: [place] [id number] Care Teams Replanting Machine Operator Relationship Specialty Start Date End Date Barney Berry Jr., PA [address] [place] [phone] [facility] - General 07/29/16
--- OUTSIDE RECORDS SUMMARY | 2024-09-21 08:08 | XMS_ITS | Encounter Summary ---
Author Organization [facility] Address [address] [facility] [place] [address] Care Team Providers Care Scanner Supervisor Name Role Phone Unavailable Primary Care Provider Unavailabl e Encounter Details Date Type Department Care Team (Late st Contact Info) Description 11/14/2018 Lab Requisition [facility] Care DermPath Lab [address] [facility] [place] [id number] Barney Berry PA-C [address] [place] [phone] Social History Tobacco Use Types Packs/Day Years Used Date Smoking Tobacco: Never Assessed Comments Unknown Sex and Gender Information Value Date Recorded Sex Assigned at Not on file Legal Sex Female 7:07 PM RETAIL EVENT ASSISTANT Gender Identity Not on file Sexual Orientation Not on file documented as of this encounter Plan of Treatment Not on file documented as of this encounter Procedures Procedure Name Priority Date/Time Associated Diagnosis Comments DERMATOPATHOLOGY Routine 11/11/2018 12:0 0 AM CDT documented in this encounter Results * DERMATOPATHOLOGY (11/11/2018 12:00 AM CDT) Case Report Dermatopathology Report Case: [id number] Authorizing Provider: Barney Berry PA-C Collected: 11/11/2018 12:00 AM Pathologist: Fawad Fink MD Received: 11/14/2018 06:23 AM Specimen: Skin, right parietal scalp 4:30 PM CDT DERMATOPATHOLOGY LABORATORY Final Diagnosis Specimen A. SKIN, right parietal scalp: TRICHILEMMAL (PILAR) CYST WITH CALCIFICATION (L72.12) 4:30 PM CDT DERMATOPATHOLOGY LABORATORY Clinical History Pilar cyst. 4:30 PM CDT DERMATOPATHOLOGY LABORATORY Gross Description Specimen A: Received is one formalin filled container labeled with the patient's name and designated right parietal scalp. The specimen consists of an excision submitted in 2 pieces measuring [id number], bisected, and [id number]. Jar 0. 4:30 PM CDT DERMATOPATHOLOGY LABORATORY Microscopic Description Specimen A. SKIN, right parietal scalp: Sections show a cyst that is lined by stratified squamous epithelium that shows trichilemmal keratinization (no granular layer). There is homogeneous pink keratin and aggregates of homogenous amorphous basophilic material consistent with calcium within the cyst. 4:30 PM CDT DERMATOPATHOLOGY LABORATORY Disclaimer An external and internal positive and negative controls are appropriate for the histochemical, immunohistochemical and immunofluorescence stain(s) in this case (if any), except where stated explicitly. The performance characteristics of the stain(s) cited in this report were developed and its performance characteristic determined by the Dermatopathology Laboratory at [facility], directed by Dr. Ericka Fink. These tests need not be, and therefore are not, approved by the [place] Food and Drug Administration. The tests are used for clinical purposes. Billing Codes Specimen Charges Stain Charges 89366 1 4:30 PM CDT DERMATOPATHOLOGY LABORATORY Embedded Images 4:30 PM CDT DERMATOPATHOLOGY LABORATORY Pathology/Cytolog y TISSUE SPECIMEN FROM SKIN / Unknown 11/11/2018 11/14/2018 6:23 AM CDT us Barney Berry PA-C LAB - PATHOLOGY/CYTOLOGY ORD ERABLES Final Result DERMATOPATHOLOGY LABORATORY [facility] - Department of Dermatology [address] [place] [address], [address] Floor Lab [address] [place], [place] [id number] [place] [address] documented in this encounter Visit Diagnoses Not on filedocumented in this encounter
--- OUTSIDE RECORDS SUMMARY | 2024-09-21 08:08 | XMS_ITS | Encounter Summary ---
Author Organization [facility] Facility Care Team Providers Care Manager Communication Name Role Phone RENÉE Brery Jr., Barney Odom Primary Care Provide r Encounter Details Date Type Department Care Team (Latest Contact Info) Description 06/19/2016 Orders Only [facility]CON[facility] Provider, MD Lesli [address] [place] [id number] Social History Tobacco Use Types Packs/Day Years Used Date Smoking Tobacco: Never Assessed Alcohol Use Standard Drinks/Week Comments No 0 (1 standard drink = 0.6 oz pur e alcohol) Comments Unknown Sex and Gender Information Value Date Recorded Sex Assigned at Not on file Legal Sex Female 1:17 AM STROBOSCOPE OPERATOR Gender Identity Not on file Sexual Orientation Not on file documented as of this encounter Plan of Treatment Not on file documented as of this encounter Procedures Procedure Name Priority Date/Time Associated Diagnosis Comments PROCEDURE - RESULT 06/19/2016 12 :00 AM STROBOSCOPE OPERATOR documented in this encounter Results * PROCEDURE - RESULT (06/19/2016 12:00 AM STROBOSCOPE OPERATOR) Narrative 06/19/2016 12:00 AM STROBOSCOPE OPERATOR Ordered by an unspecified provider. Historical Provider Final Res ult documented in this encounter Visit Diagnoses Not on filedocumented in this encounter Care Teams Manager Communication Relationship Specialty Start Date End Date Barney Berry Jr., PA [facility] [address] PCP - General 07/29/16 documented as of this encounter
--- OUTSIDE RECORDS SUMMARY | 2024-09-21 08:08 | XMS_ITS | Encounter Summary ---
Author Organization [facility] Facility Care Team Providers Care Orange Grower Name Role Phone RENÉE Berry Jr., Barney Odom Primary Care Provide r Encounter Details Date Type Department Care Team (Latest Contact Info) Description 06/23/2016 Orders Only [facility]INCONV Provider, MD Lesli [address] [place] [address] Social History Tobacco Use Types Packs/Day Years Used Date Smoking Tobacco: Never Assessed Alcohol Use Standard Drinks/Week Comments No 0 (1 standard drink = 0.6 oz pur e alcohol) Comments Unknown Sex and Gender Information Value Date Recorded Sex Assigned at Not on file Legal Sex Female 1:17 AM SHAREMILKER Gender Identity Not on file Sexual Orientation Not on file documented as of this encounter Plan of Treatment Not on file documented as of this encounter Procedures Procedure Name Priority Date/Time Associated Diagnosis Comments PROCEDURE - RESULT 06/23/2016 12 :00 AM SHAREMILKER PROCEDURE - RESULT 06/23/2016 12 :00 AM SHAREMILKER PROCEDURE - RESULT 06/23/2016 12 :00 AM SHAREMILKER SCAN - LABS 06/23/2016 12:00 AM SHAREMILKER documented in this encounter Results * PROCEDURE - RESULT (06/23/2016 12:00 AM SHAREMILKER) Narrative 06/23/2016 12:00 AM SHAREMILKER Ordered by an unspecified provider. Historical Provider MD Final Res ult * PROCEDURE - RESULT (06/23/2016 12:00 AM SHAREMILKER) Narrative 06/23/2016 12:00 AM SHAREMILKER Ordered by an unspecified provider. Historical Provider MD Final Res ult * PROCEDURE - RESULT (06/23/2016 12:00 AM SHAREMILKER) Narrative 06/23/2016 12:00 AM SHAREMILKER Ordered by an unspecified provider. [facility] Provider Final Res ult * SCAN - LABS (06/23/2016 12:00 AM SHAREMILKER) Narrative 06/23/2016 12:00 AM SHAREMILKER Ordered by an unspecified provider. [facility] Provider Final Res ult documented in this encounter Visit Diagnoses Not on filedocumented in this encounter Care Teams Orange Grower Relationship Specialty Start Date End Date Barney Berry Jr., PA [address] [place] [id number] PCP - General 07/29/16 documented as of this encounter
--- OUTSIDE RECORDS SUMMARY | 2024-09-21 08:08 | XMS_ITS | Encounter Summary ---
Author Organization [facility] Address [address] [place] [address] Phone Care Team Providers Care Research Methodologist Name Role Phone RENÉE Berry Jr., Barney Odom Primary Care Provide r Encounter Details Date Type Department Care Team (Latest Contact Info) Description 05/01/2014 Orders Only [facility] Scanning, Provider Social History Tobacco Use Types Packs/Day Years Used Date Smoking Tobacco: Never Assessed Alcohol Use Standard Drinks/Week Comments No 0 (1 standard drink = 0.6 oz pur e alcohol) Comments Unknown Sex and Gender Information Value Date Recorded Sex Assigned at Not on file Legal Sex Female 1:17 AM RESEARCH INVESTIGATOR Gender Identity Not on file Sexual Orientation Not on file documented as of this encounter Plan of Treatment Not on file documented as of this encounter Procedures Procedure Name Priority Date/Time Associated Diagnosis Comments SCAN - LABS 05/01/2014 documented in this encounter Results * SCAN - LABS (05/01/2014) us Provider Scanning Edited Result - Final documented in this encounter Visit Diagnoses Not on filedocumented in this encounter Care Teams Research Methodologist Relationship Specialty [place] [address] [address] PCP - General 07/29/16 documented as of this encounter
--- OUTSIDE RECORDS SUMMARY | 2024-09-21 08:08 | XMS_ITS | Encounter Summary ---
Author Organization [facility] Facility Care Team Providers Care Furniture Maker Name Role Phone RENÉE Berry Jr., Barney Odom Primary Care Provide r Encounter Details Date Type Department Care Team (Latest Contact Info) Description 09/03/2016 Orders Only [facility] CLINCONV Provider, MD Lesli [address] [place] [id number] Social History Tobacco Use Types Packs/Day Years Used Date Smoking Tobacco: Never Assessed Alcohol Use Standard Drinks/Week Comments No 0 (1 standard drink = 0.6 oz pur e alcohol) Comments Unknown Sex and Gender Information Value Date Recorded Sex Assigned at Not on file Legal Sex Female 1:17 AM 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 Historical Provider Final Res ult documented in this encounter Visit Diagnoses Not on filedocumented in this encounter Care Teams Furniture Maker Relationship Specialty Start Date End Date Barney Berry Jr., PA [address] [place] [id number] PCP - General 07/29/16 documented as of this encounter
--- OUTSIDE RECORDS SUMMARY | 2024-09-21 08:08 | XMS_ITS | Encounter Summary ---
Author Organization [facility] Facility Care Team Providers Care Preschool Principal Name Role Phone RENÉE Berry Jr., Barney Odom Primary Care Provide r Encounter Details Date Type Department Care Team (Latest Contact Info) Description 01/21/2017 Orders Only [facility] CLINCONV Provider, MD Lesli [address] [place] [id number] Social History Tobacco Use Types Packs/Day Years Used Date Smoking Tobacco: Never Assessed Alcohol Use Standard Drinks/Week Comments No 0 (1 standard drink = 0.6 oz pur e alcohol) Comments Unknown Sex and Gender Information Value Date Recorded Sex Assigned at Not on file Legal Sex Female 1:17 AM SERVICE TECHNICIAN Gender Identity Not on file Sexual Orientation Not on file documented as of this encounter Plan of Treatment Not on file documented as of this encounter Procedures Procedure Name Priority Date/Time Associated Diagnosis Comments SCAN - PATHOLOGY 01/21/2017 12:0 0 AM CDT PROCEDURE - RESULT 01/11/2017 12 :00 AM CDT documented in this encounter Results * SCAN - PATHOLOGY (01/21/2017 12:00 AM CDT) Narrative 01/21/2017 12:00 AM CDT Ordered by an unspecified provider. Historical Provider Final Res ult * PROCEDURE - RESULT (01/11/2017 12:00 AM CDT) Narrative 01/11/2017 12:00 AM CDT Ordered by an unspecified provider. us Historical Provider MD Final Res ult documented in this encounter Visit Diagnoses Not on filedocumented in this encounter Care Teams Preschool Principal Relationship Specialty Start Date End Date Barney Berry Jr., RENÉE [address] [place] [id number] PCP - General 07/29/16 documented as of this encounter
--- NOTE | 2024-09-21 08:13 | ED.SKABFB ---
HPI - Skin/Abscess/Foreign Bdy General Chief complaint: Skin/Abscess/Foreign Body Stated complaint: Skin/Abscess/Foreign Body Time Seen by Provider: 09/21/24 08:13 Source: patient Mode of arrival: ambulatory Limitations: no limitations History of Present Illness HPI narrative: 58 y/o female presented for c/o tick embedded into the skin on her left shoulder. First noticed last night. Reports redness to the site with minimal pain. They applied rubbing alcohol and hand snow removing supervisor to the site. was able to remove the body of the tick. [place] 2 [place] prior to noticing the tick. Denies significant skin changes, headache, n/v/f/c. Related Data Home Medications ?Medication ?Instructions ?Recorded ?Confirmed ?Last Taken ?Type buspirone 10 mg tablet 10 mg BID 06/25/19 06/25/19 Unknown History clonazepam 0.5 mg tablet 0.5 mg BID 06/25/19 06/25/19 Unknown History aripiprazole 2 mg tablet mg 09/21/24 Unknown History lamotrigine 100 mg tablet mg 09/21/24 Unknown History losartan 50 mg tablet mg 09/21/24 Unknown History Allergies Allergy/AdvReac Type Severity Reaction Status Date / Time tramadol Allergy Unknown RASH Verified 09/21/24 08:16 cephalexin (From Keflex) AdvReac Mild Anxiety Verified 09/21/24 08:16 Review of Systems Review of Systems: CONSTITUTIONAL: Denies body aches, fever, chills, or sweats. EYES: Denies visual changes, redness, or discharge. ENT: Denies rhinorrhea, congestion CARDIOVASCULAR: Denies chest pain, palpitations, or edema. RESPIRATORY: Denies cough or dyspnea. GASTROINTESTINAL: Denies abdominal pain, nausea, vomiting, or diarrhea. SKIN: MUSCULOSKELETAL: Denies back pain, joint pain, or myalgia. NEUROLOGIC: Denies headache, numbness, tingling, or weakness. [facility] Social History Social History (Updated 06/25/19 @ 10:54 by Radha Faye, PRINTING PRESS MACHINIST, ) Smoking status: Never smoker Gender identity (if verbalized by the patient): Female Comments At time of signature, I have reviewed and agree with nursing past medical, surgical, social and family history unless otherwise noted. Please see nursing chart for further information. There is no relevant family history pertinent to the presenting complaint Exam Narrative: GENERAL: Well-appearing HEAD: Normocephalic, atraumatic. EYES: conjunctivae clear, and EOMI. ENT: Mucous membranes moist. Oropharynx without edema, erythema or lesions. NECK: Supple. No lymphadenopathy CHEST: Clear to auscultation. HEART: Regular rate and rhythm. SKIN: Warm, dry. Left clavicle with [id number] area of erythema, nontender, no drainage or fluctuance. Center of erythema with <1mm black FB embedded. NEURO: Alert and oriented x3. Course Course Emergency Course: Patient is aware of diagnosis, understands and agrees to treatment plan. Anticipatory guidance given. Patient agrees to follow-up as directed and is aware of reasons to seek care at the emergency department. Portions of this record may have been created with voice recognition software Level of Care: Express Care Visit Vital Signs Vital signs: Vital Signs Temperature 98.2 F 09/21/24 08:15 Pulse Rate 105 H 09/21/24 08:15 Respiratory Rate 18 09/21/24 08:15 Blood Pressure 145/82 H 09/21/24 08:15 Pulse Oximetry 97 09/21/24 08:15 Oxygen Delivery Room Air 09/21/24 08:15 Temperature 98.2 F 09/21/24 08:15 Pulse Rate 105 H 09/21/24 08:15 Respiratory Rate 18 09/21/24 08:15 Blood Pressure 145/82 H 09/21/24 08:15 Pulse Oximetry 97 09/21/24 08:15 Oxygen Delivery Room Air 09/21/24 08:15 Reviewed Procedures Foreign Body Removal Foreign Body #1: Foreign Body Removal Date: 09/21/24 Site: left and other (clavicle) Description of foreign body: insect (tick fragment) Technique: removal with forceps Confirmed by:: direct visualization (magnifier), patient report and palpation Complications: none Foreign Body Removal Narrative: Site cleansed with skintegrity and alcohol. Center of erythema with <1mm black FB embedded removed without difficulty. Pt declined bandaid. MDM - Skin/Abscess/Foreign Bdy MDM Narrative Medical decision making narrative: Discussed physical exam findings; Small black FB removed from left shoulder c/w retained fragment of tick. Rx doxy. Advised supportive measures and signs/symptoms to go to the ER. Pt is appropriate for outpt treatment and f/u. Instructed patient to go to nearest ER immediately for any worsening symptoms including but not limited to: fever, spreading rash, pain, headache, dizziness, chest pain, trouble breathing, or any symptoms concerning to the patient. Differential Diagnosis Differential diagnosis: Likely abscess of skin or subcutaneous tissue, viral exanthem, dermatophytosis, urticaria, herpes zoster, cellulitis, eczema, insect bites, impetigo and contact dermatitis Discharge Plan Discharge Clinical Impression: Tick bite Patient Disposition: Home Condition: Stable Instructions: Antibiotic Form, Tick Bite (ED) Additional Instructions: Take medication as directed Keep the area clean and dry. For 30 days following the tick bite Watch for: Signs of infection including Increased pain, swelling, warmth, bite red streaks bleeding from the bite or pus draining from the bite. Fever. New rash, especially a bull?s eye appearance which is a characteristic of Lyme disease, or any rash that expands from the site. Flu like symptoms including fevers, chills, body aches, fatigue or headache. If you think the tick was attached for over 30 hours, especially deer tick, go to the emergency room Minor redness or swelling at the site of the tick bite is often a normal reaction and should subside within a few days. Follow up with your primary care provider as needed in 1 week Go to the ER for worsening symptoms or concerns Patient Language: Spanish Prescriptions: New doxycycline hyclate 100 mg tablet 200 mg PO DAILY 1 Days Qty: 2 0RF No Action buspirone 10 mg tablet 10 mg BID clonazepam 0.5 mg tablet 0.5 mg BID losartan 50 mg tablet lamotrigine 100 mg tablet aripiprazole 2 mg tablet Follow-up/Referrals: Bright,Lei Barnett DO [Primary Care Provider] -
[2024-09-21 08:15] VITALS: BP 145/82; PULSE 105; RESP 18; TEMP 36.8; O2SAT 97
== END 2024-09-21 08:40 | disposition home or self-care (01) ==
PROVIDERS: Emergency Provider Nurse Practitioner Family; PCP Family Medicine
DX: S40.262A Insect bite (nonvenomous) of left shoulder, initial encounter (principal); Z79.899 Other long term (current) drug therapy; W57.XXXA Bitten or stung by nonvenomous insect and other nonvenomous arthropods, initial encounter
CPT/HCPCS: 99213; G0463

== ENCOUNTER 2025-01-28 20:34 | Inpatient (IN) | payer OTHER, SELFPAY ==
--- NOTE | ~2025-01-28 | XR_ITS ---
MODIFIED ESOPHAGRAM HISTORY: Dysphagia. TECHNIQUE: Modified barium esophagram was performed on 01/30/2025. I administered fluoroscopy and performed the exam with speech pathologist. Patient was seated for lateral fluoroscopic imaging for ingestion of thin liquids, pudding, solids and quantified amounts, followed by thin liquids in uncontrolled amounts. This was recorded on tape. A single fluoroscopic spot image was also recorded. The DAP for this procedure was 0.487 Gycm2. The amount of fluoroscopy time used during this procedure was 0.6 minutes. FINDINGS: Oral stage: Adequate function. Pharyngeal stage: Adequate function. Cervical/esophageal stage: Adequate function. IMPRESSION: Patient tolerated regular consistency oral feedings in the upright position. Please correlate with speech pathologist findings and specific feeding recommendations. Reviewed, dictated and finalized at location A. IMPRESSION: Patient tolerated regular consistency oral feedings in the upright position. Please correlate with speech pathologist findings and specific feedi ng recommendations.
--- NOTE | ~2025-01-28 | XR_ITS ---
XR chest 1V portable 01/29/2025 18:22 Indication: Low sodium Procedure: AP portable chest Comparison: No prior studies for comparison. Findings: Elevated right diaphragm. There is subsegmental atelectasis left mid thorax. No focal pneumonia, pleural effusion or pneumothorax. No acute osseous abnormality. Impression: 1: Subsegmental atelectasis left mid chest. Reviewed, dictated and finalized at location O. Impression: 1: Subsegmental atelectasis left mid chest.
--- NOTE | ~2025-01-28 | US_ITS ---
US renal BI 01/30/2025 12:41 Procedure: Realtime transabdominal ultrasound of the kidneys and bladder. Indication: Large volume of urinary retention Comparison: No prior studies for comparison. Findings: Renal echotexture is normal bilaterally without hydronephrosis, contour deforming mass or renal calculus. The right kidney measures 10.3 cm and left kidney measures 11.2 cm. Bladder not evaluated due to catheterization. Impression: 1: Unremarkable renal ultrasound. No stones, masses or hydronephrosis. Reviewed, dictated and finalized at location O. Impression: 1: Unremarkable renal ultrasound. No stones, masses or hydronephrosis.
--- OUTSIDE RECORDS SUMMARY | 2025-01-28 20:36 | XMS_ITS ---
Author Organization [facility] Address [address] [place] [address] Care Team Providers Care Net Programmer Name Role Phone Jhonathan Gonzalez MD Unavailable [phone] Lei Novoa DO Primary Care Provider Active Problems Problem Noted Date Diagnosed Date Morbid obesity 12/12/2024 Overview (12/12/2024): BMI 35 with HTN Weight management discussed Dysphagia 12/01/2024 Overview (12/12/2024): EGD 12/13/24 - Dr. Kramer Primary osteoarthritis involving multiple joints 11/29/2024 Abnormal saccadic eye movement 11/09/2024 Unspecified disorder of visual pathways 11/10/19 25 GERD without esophagitis 11/03/2024 Overview (11/03/2024): Chronic, stable condition on Prilosec Continue same medications Hypertension, essential 11/03/2024 Overview (11/03/2024): Chronic, stable condition on Cozaar Continue same medications Other dysphagia 11/03/2024 Overview (11/29/2024): Was following with GI - Dr. Reeves Needing new GI (November 2024) Dysphagia requiring frequent dilation Nystagmus 11/03/2024 Overview (11/03/2024): Evaluation in progress Appt with Neuro-Ophtho October 2024 Routine physical examination 11/02/2024 Overview (11/03/2024): November 03, 2024 Hyponatremia 03/27/2024 S/P total knee replacement, right 03/21/2024 Balance problem 02/25/2024 Shuffling gait 02/25/2024 Obsessive compulsive personality disorder 2023 Overview (11/29/2024): increase prozac to 40 mg daily, recommended counseling, gave referral to pt Xerosis cutis 06/09/2023 Constipation 09/07/2022 Overview (11/29/2024): counseled her on constipation issues. discussed that having 3 BM per week may be wahts normal for her, especially since they are not hard, dry or difficult to pass. advised continuing healthy bowel habits. will adjust her prozac so that this may help s Osteophyte of foot 10/14/2021 Primary localized osteoarthrosis, ankle and foot 10/14/2021 Arthritis of midfoot 09/05/2021 Overview (11/29/2024): Added automatically from request for surgery [id number] Contracture of left Achilles tendon 09/05/2021 Overview (11/29/2024): Added automatically from request for surgery [id number] Left foot pain 09/05/2021 Overview (11/29/2024): Added automatically from request for surgery [id number] Osteophyte of left foot 09/05/2021 Overview (11/29/2024): Added automatically from request for surgery [id number] Planovalgus deformity of foot, acquired, left Overview (11/29/2024): Added automatically from request for surgery [id number] Urinary retention with incomplete bladder emptyi ng 09/23/2020 Overview (11/03/2024): Previous placement InterStim InterStim is no longer functional but she is concerns with urination Continue monitoring symptoms Assessment & Plan (09/23/2020 3:18 PM CDT): [...] due to retention and 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 of aromatase inhibitor 02/2020 ER+ (estrogen receptor positive status) 07/12/19 19 Acquired absence of both breasts 12/22/2017 Overview (11/03/2024): Breast cancer 2013 Bilateral mastectomy Was on aromatase inhibitor Following with Oncology History of breast cancer 12/22/2017 Overview (11/03/2024): Breast cancer in 2013 Bilateral mastectomy Previous Aromatase inhibitor use Following with Oncology Anxiety 03/30/2016 Overview (11/03/2024): Chronic condition is stable on Buspar, Viibryd, Abilify, Clonazepam, Atarax Following with Psychiatry Continue same medications S/P breast reconstruction 02/12/2016 Overview (11/03/2024): Breast cancer with bilateral mastectomy in 2013 Malignant neoplasm of overla pping sites of right breast in female, estrogen receptor positive 12/27/2015 Congenital spondylolisthesis of lumbar region Depression 09/03/2015 Overview (11/03/2024): Chronic condition is stable on Buspar, Viibryd, Abilify, Clonazepam, Atarax Following with Psychiatry Continue same medications Obsessive-compulsive disorder 09/03/2015 Overview (12/12/2024): Chronic condition is stable on Buspar, Viibryd, Abilify, Clonazepam, Atarax Following with Psychiatry Continue same medications Osteopenia 08/29/2015 Current Treatment and Therapy Plans No current plan information found. Past Treatment and Therapy Plans Oncology Chemotherapy Treatment Plan Name Start Date Discontinue Date Treatment Medications Discontinue Reason Plan Provider Cycles Goserelin 28 Day Cycles - Breast 8 05/21/2023 goserelin (ZOLADEX) Automatic discontinuation of dormant plans Amy Thompson MD 21 cycles started Oncology Supportive Care Therapy Plan Plan Name Start Date Discontinue Date Treatment [...] Problem Noted Date Diagnosed Date Resolved Date Mixed obsessional thoughts and acts 11/29/2024 12/12/2024 Cystic acne 06/09/2023 12/12/2024 Pelvic floor dysfunction in female 05/09/2021 11/03/2024 Assessment & Plan (05/09/2021 11:08 AM JUICE TESTER): -She reports some help with pelvic floor therapy and continues to practice the exercises and methods to help empty her bladder. -She previously tried tamsulosin for difficulty emptying but doesn't feel it helped. -She is interested in discussing Interstim device for further treatment of her urinary issues. Patient does report she will be moving to [place] early next year. I informed her it may take some time to get in with Dr. Waters and she may want to consider finding someone locally in [place] to do procedure so they can monitor locally. We will schedule her with Dr. Waters for now but she will look for urologist in [place] area. PLAN: -Schedule f/u with Dr. Waters for further discussion of possible Interstim device. -Stop tamsulosin. Voiding dysfunction 01/09/2021 11/03/19 25 Assessment & Plan (01/09/2021 2:11 PM CDT): [...] -Continue flomax. -Referral to pelvic floor therapy. Right arm numbness 09/11/2020 5 Assessment & Plan (11/19/2020 1:17 PM CDT): [...] (BMI) of 30.0 to 30.9 in adult 12/22/201904/2025 Assessment & Plan (12/22/2019 10:40 AM CDT): Educated patient on healthy diet/exercise plan. Exercise 150min-300min per week of moderate intensity. Diet: good, healthy protein (eggs, nuts, peanut butter, chicken, fish, turkey, less pork/beef), lots of vegetables, less carbohydrates and less sugar. Postmenopausal bleeding 12/23/201812/22 Encounter for monitoring casey matase inhibitor therapy 07/08/2018 11/02/2024 At risk for loss of bone density 07/08/2018 11/02/2024 Ataxia 06/29/2018 11/03/2024 Hot flashes 01/06/2018 12/22/2019 Encounter for consultation 10/15/2017 0 11/02/2024 Vaginal odor 10/15/2017 12/22/2019 Caffeine addiction 07/20/2017 Overview (12/23/2018): diet mountain dew Bilateral carpal tunnel syndrome 05/28/2017 11/03/2024 Mass of hand 01/06/2017 11/02/2024 Mucous cyst of finger 01/06/20172024 Anemia, iron deficiency 10/26/201610/22 Cystocele, unspecified (CODE) 09/22/2016 11/02/2024 Rectocele 09/22/2016 11/03/2024 Dorsalgia, unspecified 12/27/201511/02 Irritable colon 12/27/2015 11/02/2024 Screening for malignant neoplasm of cervix 12/27/2015 12/22/2019 Absence of breast 07/30/2015 03/18/2021 Hot flash due to medication 02/14/2015 11/03/2024 Malignant neoplasm of breast 03/29/2014 11/03/2024 Hypoglycemia 10/07/2013 07/08/2018 Overview (08/27/2016): HYPOGLYCEMIA NOS Impaired fasting glucose 10/07/2013 Overview (08/27/2016): IMPAIRED FASTING GLUCOSE Vitamin D deficiency 10/07/2013 019 Overview (08/27/2016): VITAMIN D DEFICIENCY NOS Arthralgia of ankle 06/23/2013 11/03/19 25
--- OUTSIDE RECORDS SUMMARY | 2025-01-28 20:36 | XMS_ITS | Encounter Summary ---
Author Organization [facility] Facility Care Team Providers Care Industrial Maintenance Technician Name Role Phone RENÉE Berry Jr., Barney Odom Primary Care Provide r Jhonathan Gonzalez MD Unavailable [phone] Lei Novoa DO Primary Care Provider Encounter Details Date Type Department Care Team (Latest Contact Info) Description 01/21/2017 Orders Only [facility] CLINCONV ProviderLesli MD [address] [place] [address] Social History Tobacco Use Types Packs/Day Years Used Date Smoking Tobacco: Never Assessed Alcohol Use Standard Drinks/Week Comments No 0 (1 standard drink = 0.6 oz pur e alcohol) Comments Unknown Sex and Gender Information Value Date Recorded Sex Assigned at Not on file Legal Sex Female 1:17 AM 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 us Historical Provider Final Res ult documented in this encounter Visit Diagnoses Not on filedocumented in this encounter Care Teams Industrial Maintenance Technician Relationship Specialty Start Date End Date Barney Berry Jr., PA [address] [place] [address] PCP - General 07/29/16 10/29/24 Lei Novoa DO [address] [place] [address] PCP - General Family Medicine 10/30/24 Jhonathan Gonzalez MD [address] [address] Consulting Physician Obstetrics and Gynecology 10/27/24 documented as of this encounter
--- OUTSIDE RECORDS SUMMARY | 2025-01-28 20:36 | XMS_ITS | Encounter Summary ---
Author Organization [facility] Facility Care Team Providers Care Biomedical Photographer Name Role Phone RENÉE Berry Jr., Barney Odom Primary Care Provide r Jhonathan Gonzalez MD Unavailable [phone] Lei Novoa DO Primary Care Provider Encounter Details Date Type Department Care Team (Latest Contact Info) Description 06/19/2016 Orders Only [facility] CLINCONV Provider, MD Lesli [address] [place] [address] Social History Tobacco Use Types Packs/Day Years Used Date Smoking Tobacco: Never Assessed Alcohol Use Standard Drinks/Week Comments No 0 (1 standard drink = 0.6 oz pur e alcohol) Comments Unknown Sex and Gender Information Value Date Recorded Sex Assigned at Not on file Legal Sex Female 1:17 AM NURSES DIRECTOR Gender Identity Not on file Sexual Orientation Not on file documented as of this encounter Plan of Treatment Not on file documented as of this encounter Procedures Procedure Name Priority Date/Time Associated Diagnosis Comments PROCEDURE - RESULT 06/19/2016 12 :00 AM NURSES DIRECTOR documented in this encounter Results * PROCEDURE - RESULT (06/19/2016 12:00 AM NURSES DIRECTOR) Narrative 06/19/2016 12:00 AM NURSES DIRECTOR Ordered by an unspecified provider. Historical Provider Final Res ult documented in this encounter Visit Diagnoses Not on filedocumented in this encounter Care Teams Biomedical Photographer Relationship Specialty Start Date End Date Barney Berry Jr., PA [address] [place] [address] PCP - General 07/29/16 10/29/24 Lei Novoa DO [address] [place] [address] PCP - General Family Medicine 10/30/24 Jhonathan Gonzalez MD [facility] [address] [address] Consulting Physician Obstetrics and Gynecology 10/27/24 documented as of this encounter
--- OUTSIDE RECORDS SUMMARY | 2025-01-28 20:36 | XMS_ITS | Encounter Summary ---
Author Organization [facility] Facility Care Team Providers Care Glass Blowing Lathe Operator Name Role Phone RENÉE Berry Jr., Barney Odom Primary Care Provide r Jhonathan Gonzalez MD Unavailable [phone] Lei Novoa DO Primary Care Provider Encounter Details Date Type Department Care Team (Latest Contact Info) Description 06/23/2016 Orders Only [facility] CLINCONV ProviderLesli MD [address] [place] [address] Social History Tobacco Use Types Packs/Day Years Used Date Smoking Tobacco: Never Assessed Alcohol Use Standard Drinks/Week Comments No 0 (1 standard drink = 0.6 oz pur e alcohol) Comments Unknown Sex and Gender Information Value Date Recorded Sex Assigned at Not on file Legal Sex Female 1:17 AM SHAPER MACHINE HAND Gender Identity Not on file Sexual Orientation Not on file documented as of this encounter Plan of Treatment Not on file documented as of this encounter Procedures Procedure Name Priority Date/Time Associated Diagnosis Comments PROCEDURE - RESULT 06/23/2016 12 :00 AM SHAPER MACHINE HAND PROCEDURE - RESULT 06/23/2016 12 :00 AM SHAPER MACHINE HAND PROCEDURE - RESULT 06/23/2016 12 :00 AM SHAPER MACHINE HAND SCAN - LABS 06/23/2016 12:00 AM SHAPER MACHINE HAND documented in this encounter Results * PROCEDURE - RESULT (06/23/2016 12:00 AM SHAPER MACHINE HAND) Narrative 06/23/2016 12:00 AM SHAPER MACHINE HAND Ordered by an unspecified provider. [facility] Provider MD Final Res ult * PROCEDURE - RESULT (06/23/2016 12:00 AM SHAPER MACHINE HAND) Narrative 06/23/2016 12:00 AM SHAPER MACHINE HAND Ordered by an unspecified provider. [facility] Provider Final Res ult * PROCEDURE - RESULT (06/23/2016 12:00 AM SHAPER MACHINE HAND) Narrative 06/23/2016 12:00 AM SHAPER MACHINE HAND Ordered by an unspecified provider. [facility] Provider Final Res ult * SCAN - LABS (06/23/2016 12:00 AM SHAPER MACHINE HAND) Narrative 06/23/2016 12:00 AM SHAPER MACHINE HAND Ordered by an unspecified provider. [facility] Provider Final Res ult documented in this encounter Visit Diagnoses Not on filedocumented in this encounter Care Teams Glass Blowing Lathe Operator Relationship Specialty Start Date End Date Barney Berry Jr., PA [address] [place] [address] PCP - General 07/29/16 10/29/24 Lei Novoa DO [address] [place] [address] PCP - General Family Medicine 10/30/24 Jhonathan Gonzalez MD [address] [place] [address] Consulting Physician Obstetrics and Gynecology 10/27/24 documented as of this encounter
--- OUTSIDE RECORDS SUMMARY | 2025-01-28 20:36 | XMS_ITS | Clinical Summary ---
Author Organization [facility] Address [address] [place] [address] Care Team Providers Care Cognos Administrator Name Role Phone Unavailable Primary Care Provider [...] Vaccines (1 of 2) 10/02/2013 COVID-19 Vaccine ( - 2023-2 5 season) 2025 RSV Immunization or 60+ Years (1 - [...]
--- OUTSIDE RECORDS SUMMARY | 2025-01-28 20:36 | XMS_ITS | Encounter Summary ---
Author Organization [facility] Address [address] [place] [address] Care Team Providers Care Acid Remover Name Role Phone Lei Novoa DO Primary Care Provider Encounter Details Date Type Department Care Team (Late st Contact Info) Description 10/14/2020 Lab Requisition [facility] Care DermPath Lab [address] [place] [id number] Titus Ruby MD [address] [place] [address] Social History Tobacco Use Types Packs/Day Years Used Date Smoking Tobacco: Never Assessed Comments Unknown Sex and Gender Information Value Date Recorded Sex Assigned at Not on file Legal Sex Female 7:07 PM CYTOTECHNOLOGIST Gender Identity Not on file Sexual Orientation Not on file documented as of this encounter Plan of Treatment Not on file documented as of this encounter Procedures Procedure Name Priority Date/Time Associated Diagnosis Comments DERMATOPATHOLOGY Routine 10/10/2020 12:0 0 AM CDT documented in this encounter Results * DERMATOPATHOLOGY (10/10/2020 12:00 AM CDT) Case Report Dermatopathology Report Case: [id number] Authorizing Provider: Titus Ruby MD Collected: 10/10/2020 12:00 AM Ordering Location: [facility] Care DermPath Lab Received: 10/14/2020 06:15 AM Pathologist: Fawad Fink MD Specimen: Skin, right nasal sw 4:37 PM CDT DERMATOPATHOLOGY LABORATORY Final Diagnosis Specimen A. SKIN, right nasal sw: BASAL CELL CARCINOMA, NODULAR TYPE (C44.311) 4:37 PM CDT DERMATOPATHOLOGY LABORATORY at 1637 CDT Clinical History AK vs BCCA. Path#[id number] 4:37 PM CDT DERMATOPATHOLOGY LABORATORY Gross Description [...] characteristic determined by the Dermatopathology Laboratory at [facility], directed by Dr. Ericka Fink. These tests need not be, and therefore are not, approved by the [place] Food and Drug Administration. The tests are used for clinical purposes. Billing Codes Specimen Charges Stain Charges 96404 1 1 4:37 PM CDT DERMATOPATHOLOGY LABORATORY Embedded Images 4:37 PM CDT DERMATOPATHOLOGY LABORATORY Pathology/Cytolog y TISSUE SPECIMEN FROM SKIN / Unknown 10/10/2020 10/14/2020 6:15 AM CDT us Titus Ruby MD LAB - PATHOLOGY/CYTOLOGY ORDER DEVIN Final Result DERMATOPATHOLOGY LABORATORY [facility] - Department of Dermatology [address] [phone] documented in this encounter Visit Diagnoses Not on filedocumented in this encounter Care Teams Acid Remover Relationship Specialty Start Date End Date Lei Novoa DO [address] [address] PCP - General Family Medicine 10/03/24 documented as of this encounter
--- OUTSIDE RECORDS SUMMARY | 2025-01-28 20:36 | XMS_ITS | Encounter Summary ---
Author Organization [facility] Facility Care Team Providers Care Supervisor Melt House Name Role Phone RENÉE Berry Jr., Barney Odom Primary Care Provide r Jhonathan Gonzalez MD Unavailable [phone] Lei Novoa DO Primary Care Provider Encounter Details Date Type Department Care Team (Latest Contact Info) Description 09/03/2016 Orders Only [facility] CLINCONV Provider, MD Lesli [address] [place] [address] Social History Tobacco Use Types Packs/Day Years Used Date Smoking Tobacco: Never Assessed Alcohol Use Standard Drinks/Week Comments No 0 (1 standard drink = 0.6 oz pur e alcohol) Comments Unknown Sex and Gender Information Value Date Recorded Sex Assigned at Not on file Legal Sex Female 1:17 AM DATA MODELING ARCHITECT Gender Identity Not on file Sexual Orientation [...] on filedocumented in this encounter Care Teams Supervisor Melt House Relationship Specialty Start Date End Date Barney Berry Jr., PA [address] [place] [address] PCP - General 07/29/16 10/29/24 Lei Novoa DO [address] [place] [address] PCP - General Family Medicine 10/30/24 Jhonathan Gonzalez MD [address] [address] Consulting Physician Obstetrics and Gynecology 10/27/24 documented as of this encounter
--- OUTSIDE RECORDS SUMMARY | 2025-01-28 20:36 | XMS_ITS | Encounter Summary ---
Author Organization [facility] Facility Care Team Providers Care Laundry Housekeeper Name Role Phone RENÉE Berry Jr., Barney Odom Primary Care Provide r Jhonathan Gonzalez MD Unavailable [phone] Lei Novoa DO Primary Care Provider Encounter Details Date Type Department Care Team (Latest Contact Info) Description 08/04/2017 Orders Only [facility] CLINCONV ProviderLesli MD [address] [place] [address] Social History Tobacco Use Types Packs/Day Years Used Date Smoking Tobacco: Never Alcohol Use Standard Drinks/Week Comments No 0 (1 standard drink = 0.6 oz pur e alcohol) Comments Unknown Sex and Gender Information Value Date Recorded Sex Assigned at Not on file Legal Sex Female 1:17 AM CELL BUILDER Gender Identity Not on file Sexual Orientation [...] on filedocumented in this encounter Care Teams Laundry Housekeeper Relationship Specialty Start Date End Date Barney Berry Jr., PA [address] [place] [address] PCP - General 07/29/16 10/29/24 Lei Novoa DO [address] [place] [address] PCP - General Family Medicine 10/30/[address] [facility] [address] [address] Consulting Physician Obstetrics and Gynecology 10/27/24 documented as of this encounter
--- OUTSIDE RECORDS SUMMARY | 2025-01-28 20:36 | XMS_ITS | Encounter Summary ---
Author Organization [facility] Facility Care Team Providers Care Supervising Bailiff Name Role Phone RENÉE Berry Jr., Barney Odom Primary Care Provide r Jhonathan Gonzalez MD Unavailable [phone] Lei Novoa DO Primary Care Provider Encounter Details Date Type Department Care Team (Latest Contact Info) Description 05/12/2016 Orders Only [facility] CLINCONV ProviderLesli MD [address] [place] [address] Social History Tobacco Use Types Packs/Day Years Used Date Smoking Tobacco: Never Assessed Alcohol Use Standard Drinks/Week Comments No 0 (1 standard drink = 0.6 oz pur e alcohol) Comments Unknown Sex and Gender Information Value Date Recorded Sex Assigned at Not on file Legal Sex Female 1:17 AM AIR BRAKE ADJUSTER Gender Identity Not on file Sexual Orientation Not on file documented as of this encounter Plan of Treatment Not on file documented as of this encounter Procedures Procedure Name Priority Date/Time Associated Diagnosis Comments PROCEDURE - RESULT 05/12/2016 12 :00 AM AIR BRAKE ADJUSTER PROCEDURE - RESULT 05/12/2016 12 :00 AM AIR BRAKE ADJUSTER documented in this encounter Results * PROCEDURE - RESULT (05/12/2016 12:00 AM AIR BRAKE ADJUSTER) Narrative 05/12/2016 12:00 AM AIR BRAKE ADJUSTER Ordered by an unspecified provider. us Historical Provider MD Final Res ult * PROCEDURE - RESULT (05/12/2016 12:00 AM AIR BRAKE ADJUSTER) Narrative 05/12/2016 12:00 AM AIR BRAKE ADJUSTER Ordered by an unspecified provider. us Historical Provider Final Res ult documented in this encounter Visit Diagnoses Not on filedocumented in this encounter Care Teams Supervising Bailiff Relationship Specialty Start Date End Date Barney Berry Jr., PA [address] [place] [address] PCP - General 07/29/16 10/29/24 Lei Novoa DO [address] [place] [address] PCP - General Family Medicine 10/30/24 Jhonathan Gonzalez MD [address] [address] Consulting Physician Obstetrics and Gynecology 10/27/24 documented as of this encounter
--- OUTSIDE RECORDS SUMMARY | 2025-01-28 20:36 | XMS_ITS | Encounter Summary ---
Author Organization [facility] Address [address] [place] [address] Phone Care Team Providers Care Travel Service Consultant Name Role Phone RENÉE Berry Jr., Barney Odom Primary Care Provide r Jhonathan Gonzalez MD Unavailable [phone] Lei Novoa DO Primary Care Provider Encounter [...] on file Legal Sex Female 1:17 AM MANIFEST CLERK Gender Identity Not on file Sexual Orientation [...] on filedocumented in this encounter Care Teams Travel Service Consultant Relationship Specialty Start Date End Date Barney Berry Jr., [place] [address] [address] PCP - General 07/29/16 10/29/24 Lei Novoa DO [address] [address] PCP - General Family Medicine 10/30/24 Jhonathan Gonzalez MD [address] [address] Consulting Physician Obstetrics and Gynecology 10/27/24 documented as of this encounter
--- OUTSIDE RECORDS SUMMARY | 2025-01-28 20:36 | XMS_ITS | Clinical Summary ---
Author Organization [facility] Address [address] [place] [phone] Phone Care Team Providers Care Development Coordinator Name Role Phone Unavailable Primary Care Provider [...] (1 of 2) 10/02/2013 INFLUENZA VACCINE (#1) 2024 9, 02/14/2018, 02/13/2018, Additional history exists DTAP/TDAP/TD VACCINES (4 - T d or Tdap) 11/11/2027 11/10/2017, 11/09/2017, 09/05/2009 RSV VACCINE (60+ or ) (1 - 1-dose 75+ series) 10/02/2038 Insurance [facility]
--- OUTSIDE RECORDS SUMMARY | 2025-01-28 20:36 | XMS_ITS | Encounter Summary ---
Author Organization [facility] Facility Care Team Providers Care Email Campaign Manager Name Role Phone RENÉE Berry Jr., Barney Odom Primary Care Provide r Jhonathan Gonzalez MD Unavailable [phone] Lei Novoa DO Primary Care Provider Encounter Details Date Type Department Care Team (Latest Contact Info) Description 09/14/2017 Orders Only [facility] ProviderLesli MD [address] [place] [id number] Social History Tobacco Use Types Packs/Day Years Used Date Smoking Tobacco: Never Alcohol Use Standard Drinks/Week Comments No 0 (1 standard drink = 0.6 oz pur e alcohol) Comments Unknown Sex and Gender Information Value Date Recorded Sex Assigned at Not on file Legal Sex Female 1:17 AM DISTRICT ADVISER Gender Identity Not on file Sexual Orientation [...] on filedocumented in this encounter Care Teams Email Campaign Manager Relationship Specialty Start Date End Date Barney Berry Jr., PA [address] [place] [id number] PCP - General 07/29/16 10/29/24 Lei Novoa DO [address] [place] [id number] PCP - General Family Medicine 10/30/24 Jhonathan Gonzalez MD [facility] [address] [id number] Consulting Physician Obstetrics and Gynecology 10/27/24 documented as of this encounter
--- OUTSIDE RECORDS SUMMARY | 2025-01-28 20:36 | XMS_ITS | Clinical Summary ---
Author Organization [facility] Address [address] [place] [address] Care Team Providers Care Ciso Name Role Phone Jhonathan Gonzalez MD Unavailable [phone] Lei Novoa DO Primary Care Provider Allergies Active Allergy Reactions Criticality Noted Date Comments Cephalexin Anxiety Low 04/01/2016 Enoxaparin Itching Low 04/17/2024 Tramadol Rash Medium 11/11/2017 Trazodone Other (See comments) Low 08/06/2023 Patient reports being wired Medications folic acid/multivit-mi n/lutein (CENTRUM SILVER ORAL) 10/26/2016Centrum silver, po solid 400-250mcg Tablet, chewablePOdailyCurrent Medication 017 Active simethicone (PHAZYME) 180 mg capsule as needed 017 Active acetaminophen (TYLENOL EXTRA STRENGTH) 500 mg tablet TAKE 1 TABLET EVERY 4 TO 6 HOURS NEEDED. Active calcium carbonate (Calcium 600) 1,500 mg (600 mg of elemental calcium) tablet 600 mg 2 (two) times a day Active busPIRone (BUSPAR) 10 mg tabletIndication s:Anxiety TAKE 1 TABLET(10 MG) BY MOUTH THREE TIMES DAILY 90 tablet 11 021 Active Additional Information Patient taking differently: 20 mg oral 3 times daily, Reported on 12/15/2024 vilazodone (VIIBRYD) 10 mg tablet Take 1/2 tablet (5mg) for 5 days then increase to 1 tablet (10mg) once daily. 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 Active mirtazapine (REMERON) 7.5 mg tabletIndication s:Anxiety,Obsess azael-compulsive disorder, unspecified type Take 1 tablet (7.5 mg total) by mouth nightly 90 tablet 1 025 06/10 Active hydrOXYzine (ATARAX) 25 mg tabletIndication s:Anxiety,Obsess azael-compulsive disorder, unspecified type Take 1 tablet (25 mg total) by mouth daily as needed for itching 90 tablet 1 025 12/12 Active ARIPiprazole (ABILIFY) 2 mg tabletIndication s:Anxiety,Obsess azael-compulsive disorder, unspecified type Take 1 tablet (2 mg total) by mouth daily 90 tablet 1 025 06/10 Active resmetirom (Rezdiffra) 80 mg tablet Take 80 mg by mouth daily Hasn't started yet ; for liver function Acti ve prasterone, DHEA, 6.5 mg insert Insert 6.5 mg into the vagina daily 30 each 025 Active metoprolol XL (TOPROL-XL) 25 mg extended release tabletIndication s:Hypertension, essential Take one tablet in the morning and 2 in the evening 90 tablet 2 025 Active omeprazole (PriLOSEC) 20 mg capsule Take 1 capsule (20 mg total) by mouth 2 (two) times a day 180 capsule 025 Active hydroCHLOROthiaz fela (INZIRQO) 10 mg/mL suspension for reconstitution oral suspension Take 2.5 mL (25 mg total) by mouth daily 80 mL 025 Active metoprolol (LOPRESSOR) 10 mg/mL suspension Take 2.5 mL (25 mg total) by mouth 3 (three) times a day 675 mL 1 025 Active omeprazole (PriLOSEC) 20 mg capsule Take 1 capsule (20 mg total) by mouth 2 (two) times a day 025 01/11 Discont inued(R eorder) metoprolol XL (TOPROL-XL) 25 mg extended release tabletIndication s:Hypertension, essential Take 2 tablets (50 mg total) by mouth daily 025 01/03 Discont inued(R eorder) Active Problems Problem Noted Date Diagnosed Date [...] (11/29/2024): Added automatically from request for surgery [id number] Contracture of left Achilles tendon 09/05/2021 Overview (11/29/2024): Added automatically from request for surgery [id number] Left foot pain 09/05/2021 Overview (11/29/2024): Added automatically from request for surgery [id number] Osteophyte of left foot 09/05/2021 Overview (11/29/2024): Added automatically from request for surgery [id number] Planovalgus deformity of foot, acquired, left Overview (11/29/2024): Added automatically from request for surgery [id number] Urinary retention with incomplete bladder emptyi ng [...] due to retention and 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 -She previously tried tamsulosin for difficulty emptying but doesn't feel it helped. -She is interested in discussing Interstim device for further treatment of her urinary issues. Patient does report she will be moving to [place] early next year. I informed her it may take some time to get in with Dr. Waters and she may want to consider finding someone locally in [place] to do procedure so they can monitor locally. We will schedule her with Dr. Waters for now but she will look for urologist in [place] area. PLAN: -Schedule f/u with Dr. Waters for further discussion of possible Interstim device. -Stop tamsulosin. Voiding dysfunction 01/09/2021 11/03/19 Assessment & Plan (01/09/2021 2:11 PM CDT): [...] pelvic floor therapy. Right arm numbness 09/11/2020 Assessment & Plan [...] NOS Arthralgia of ankle 06/23/2013 11/03/19 25 Encounters Date Type Department Care Team Description 5 Telephone [facility] Primary Care [address] [place] [phone] Lei Novoa DO 5 Telephone [facility] [address] [place] [phone] Jolie Saunders RN 5 Orders Only [facility] Gastroenterology at [address] [place] [phone] Brandon Kramer MD Dysphagia, unspecified type (Primary Dx) 5 Orders Only [facility] Gastroenterology at [address] [place] [phone] Brandon Kramer MD 5 Orders Only [facility] Gastroenterology at [address] [place] [address] Brandon Kramer MD Hepatic cirrhosis, unspecified hepatic cirrhosis type, unspecified whether ascites present (HCC) (Primary Dx) 5 Results Follow-Up [facility] Gastroenterology at [address] [place] [address] Brandon Kramer MD Surgical pathology 5 Orders Only [facility] Gastroenterology at [address] [place] [address] Brandon Kramer MD Dysphagia, unspecified type (Primary Dx) 5 Orders Only [facility] Gastroenterology at [address] [place] [address] Brandon Kramer MD Dysphagia, unspecified type (Primary Dx) 5 Telephone [facility] Gastroenterology at [address] [place] [address] Brandon Kramer MD 5 4:25 PM CDT - 5 7:53 PM CDT Emergency [facility] Emergency Department [address] [place] [address] Discharge Disposition: Left without being seen 5 Telephone [facility] Primary Care [address] [facility] [address] [place] [phone] Lei Novoa DO 5 Telephone [facility] Gastroenterology at [address] [place] [address] Brandon Kramer MD 5 Orders Only [facility] Medical [facility] Obstetrical Gynecology [address] [facility] [address] [place] [phone] Jhonathan Gonzalez MD 5 Telephone [facility] Gastroenterology at [address] [place] [address] Brandon Kramer MD 5 1:00 PM CDT Office Visit [facility] Medicine Oncology [facility] [address] [phone] Deidra Shankar NP History of breast cancer 5 7:21 AM CDT Anesthesia Event [facility] [address] [place] [address] Annika Solis MD 5 7:15 AM CDT - 5 7:30 AM CDT Surgery [facility] [address] [place] [phone] Brandon Kramer MD ESOPHAGOGASTRODUODENOSCOPY BALLOON DILATION <30MM 5 5:55 AM CDT - 5 8:19 AM CDT Hospital Encounter [facility] [address] [place] [address] Brandon Kramer MD Dysphagia, unspecified type Discharge Disposition: Discharge to home or self care 5 11:00 AM CDT Office Visit [facility] Primary Care [address] [place] [address] [address] [place] [phone] Lei Novoa DO Hypertension, essential (Primary Dx); Anxiety; Obsessive-compulsive disorder, unspecified type; Morbid obesity (HCC); Dysphagia, unspecified type 5 Telephone [facility] Medicine Ophthalmology [address] [facility] 6th [place] [address] Jai Padron MD 5 10:00 AM CDT Procedure visit [facility] Medicine Otolaryngology [address] [facility] Advanced Medicine 11th [place] [address] [place] [phone] Tanya Hadley Au.D. Disorder of visual pathways 5 Orders Only [facility] Gastroenterology at [address] [place] [phone] Brandon Kramer MD Dysphagia, unspecified type (Primary Dx) 5 Telephone [facility] Primary Care [address] [place] [address] [address] [place] [phone] Lei Novoa DO Recommendation Request 5 10:30 AM CDT Office Visit [facility] Primary Care [address] [place] [address] [address] [place] [phone] Lei Novoa DO Hypertension, essential (Primary Dx); Burning with urination; Other dysphagia; Anxiety; Moderate episode of recurrent major depressive disorder (HCC) 5 Telephone [facility] Primary Care [address] [place] [address] [address] [place] [phone] Lei Novoa DO 5 Results Follow-Up [facility] Medicine Ophthalmology [address] [facility] [facility] 2nd Floor, [address] [place] [address] Jai Padron MD MRI Internal Auditory Canal Brain W WO Contrast 5 11:47 AM CDT - 5 11:59 PM CDT Hospital Encounter [facility] ([facility]) [address] [place] [phone] Heidi West MD Unspecified disorder of visual pathways Discharge Disposition: Discharge to home or self care 5 11:35 AM CDT - 5 11:59 PM CDT Hospital Encounter [facility] ([facility]) [address] [place] [phone] Bella Caceres MD PhD Encounter for imaging to screen for metal prior to magnetic resonance imaging (MRI) Discharge Disposition: Discharge to home or self care 5 Letter (Out) [facility] Care [address] [place] [address] [address] [place] [phone] 5 3:45 PM CDT Lab [facility] [address] [place] [address] Unspecified disorder of visu al pathways 5 2:40 PM CDT Imaging Exam [facility] Medicine Ophthalmology [address] [place] [address] 6th [place] [phone] Unspecified disorder of visu al pathways 5 2:35 PM CDT Imaging Exam [facility] Medicine Ophthalmology [address] [facility] 6th [place] [address] Unspecified disorder of visu al pathways 5 2:34 PM CDT - 5 11:59 PM CDT Hospital Encounter [facility] ([facility]) [address] [place] [address] Discharge Disposition: Discharge to home or self care 5 1:30 PM CDT Office Visit [facility] Medicine Ophthalmology [address] [phone] Jai Padron MD Unspecified disorder of visual pathways (Primary Dx); Abnormal saccadic eye movement 5 8:00 AM CDT Office Visit [facility] Primary Care [address] [place] [phone] Lei Novoa DO Routine physical examination (Primary Dx); Chronic pain of right knee; Acquired absence of both breasts; Anxiety; Moderate episode of recurrent major depressive disorder (HCC); History of breast cancer; Urinary retention with incomplete bladder emptying; S/P breast reconstruction; GERD without esophagitis; Hypertension, essential; Other dysphagia; Nystagmus from Last 3 Months Immunizations Immunization Administration Dates Next Due H1N1 Nasal 04/08/2009 Hep B Vaccine 07/10/1993,03/05/1993,01/29/1993 Influenza, Quadrivalent, Aleksandra l Culture-based MDCK, Preservative Free, Antibiotic Free, Intramuscular 03/09/2019 Influenza, Quadrivalent, Hig h Dose, Preservative Free, Intrr 03/19/2021 Influenza, Quadrivalent, Spl it, Preservative Free, Intramuscular 02/06/2020,02/14/2018,02/13/2018,02/22 Influenza, Trivalent, IM (MDV) 03/01/2014 Influenza, Trivalent, Preser vative Free, Intramuscular 02/15/2024,03/04/2016 Influenza, Unspecified 10/26/2016,2015,10/30/2015,07/30,12/17/2014,10/29/2014 MMR 11/26/2022,03/05/2004,01/30/2004 OPV 10/24/1993 PPD TEST 09/21/2017 Pfizer SARS-CoV-2 Monovalent Vaccination (12+ Yrs) PURPLE 09/06/2020,08/16/2020 Pfizer Sars-Cov-2 Bivalent V accination (12+ YRS) 06/01/2022 Td, adsorbed 10/21/1999,10/01/1999,02/28/1990 Tdap 11/10/2017,11/09/2017,09/05/2009 ZOSTER LIVE 10/26/2016, 6,10/30/2015,07/30 ZOSTER Recombinant 07/11/2018,03/31/2018 Surgical History Surgery Date Site/Laterality Comments BACK SURGERY Back Surgery - (Added by TW Conv) with hardware MASTECTOMY Bilateral Breast Surgery Mastectomy - (Added by TW Conv) BREAST SURGERY Breast Surgery Reconstruction - (Added by TW Conv) BREAST BIOPSY Right CARPAL TUNNEL RELEASE FLUORO GUIDED ASPIRATION OR INJECTION LARGE JOINT BILATERAL 03/12/2022 Bilateral REPLACEMENT TOTAL KNEE Right FOOT SURGERY Left with hardware OTHER SURGICAL HISTORY bladder nerve stimulator implanted in middle of buttock. UPPER GASTROINTESTINAL ENDOSCOPY Medical History Medical History Date Comments Anxiety [...] TW Conv) Breast cancer (HCC) Depression Hypertension GERD (gastroesophageal reflux disease) Irritable bowel syndrome Dysphagia Family History Medical History Relation Name Comments [...] often do you have a drink containing alcohol? Never 12/13/2024 Q2: How many drinks containi ng alcohol do you have on a typical day when you are drinking? Patient does not drink Q3: How often do you have si x or more drinks on one occasion? Never 12/13/2024 PHQ-2 Answer Date Recorded PHQ-2 Total Score (If total score is 3 or more points, staff should administer the PHQ-9) 0 11/29/2024 Personal Safety Answer Date Recorded Have you ever been in or are you currently in a harmful physical or emotional relationship or is someone making you feel afraid or unsafe? 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 G4,P4. LMP 04/2014. Last Filed Vital Signs Vital Sign Reading Time Taken Comments Blood Pressure 119/76 12/22/2024 6:30 PM CDT Pulse 66 12/22/2024 6:30 PM CDT Temperature 36.8 C (98.3 F) 12/22/2024 4:42 PM CDT Respiratory Rate 16 12/22/2024 6:30 PM CDT Oxygen Saturation 97% 12/22/2024 6:30 PM CDT Inhaled Oxygen Concentration - - Weight 87.2 kg (192 lb 3.9 oz) 12/22/2024 4:42 P M CDT Height 161.3 cm (5' 3.5) 12/22/2024 4:42 PM CDT Body Mass Index 33.52 12/22/2024 4:42 PM CDT Plan of Treatment Health Maintenance Due Date Last Done Comments Pneumococcal vaccine <65 (1 of 2 - PCV) 10/02/1982 Cervical Cancer Screening 01/06/2020 01/05/2019, 09/2015 Covid-19 Vaccine (2024-2 6 season) 2025 06/01/2022, 04/30/2021, 09/06/2020, Additional history exists Influenza Vaccine (#1) 2025 4, 03/19/2021, 02/06/2020, Additional history exists Colon Cancer Screening-Colonoscopy 03/14/2025 03/14/2015 Regular Well Visit/Exam 18-64 11/03/2025, 03/19/2021, 12/31/2020, Additional history exists Depression Screening 11/29/2025 11/29/2024, 11/03/2024, 05/02/2021, Additional history exists DTaP/Tdap/Td Vaccine (4 - Td or Tdap) 11/11/2027 11/10/2017, 11/09/2017, 09/05/2009, Additional history exists Colon Cancer Screening-CT Colonography Discontinued 03/14/2015 Colon Cancer Screening-DNA Stool Discontinued 03/14/20 15 Colon Cancer Screening-FIT Discontinued 03/14/2015 Colon Cancer Screening-Sigmoidoscopy Discontinued 03/14/2015 Breast Cancer Screening-Mammogram Discontinued 018 Zoster Vaccine Completed 07/11/2018, 11/0 12/2017, 10/26/2016, Additional history exists Hepatitis C Screening Completed 10/26/2024 Medical Devices Implanted Type Area [employer]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 Pt also reported that she had endoscopy procedure before and no interventions needed during procedure Neurostimulator Bladder Lead-12/12/2021 Implanted: 022 by Unknown, Notinfile (Quantity not on file) Neurostimulator Pelvis [employer] Neuro [id number] / / Description:Pt reports durin g pre call that neurostimulator in bladder has been off all the time now. Pt also reported that she had endoscopy procedure before and no interventions needed during procedure Other-See Comments Hardware In Lumbar Back Other - see comments Lumbar-S acral Spine Description:Hardware in lumb ar back Knee Replacement Right: Knee Foot Fusion Left: Foot Procedures Procedure Name Priority Date/Time Associated Diagnosis Comments TROPONIN T HIGH-SENSITIVITY 2-HOUR Timed 12/22/2024 7:04 PM CDT XR CHEST PA LATERAL 2 VIEWS ED 05/2024 5:43 PM CDT EGFR STAT 12/22/2024 5:15 PM CDT DIFFERENTIAL AUTO STAT 12/22/2024 5:15 PM CDT TROPONIN T HIGH-SENSITIVITY SERIES (BASELINE, 2HR, 4HR, 6HR) STAT 12/22/2024 5:15 PM CDT COMPREHENSIVE METABOLIC PANEL STAT 5:15 PM CDT CBC WITH AUTO DIFFERENTIAL STAT 12/22 5:15 PM CDT ECG 12-LEAD STAT 12/22/2024 4:53 PM CDT SURGICAL PATHOLOGY Routine 12/13/2024 7:28 AM CDT Dysphagia, unspecified type ENDO ADD ON ESOPHAGOGASTRODUODENOSCOPY BIOPSY 12/13/2024 7:12 AM CDT Dysphagia, unspecified type ESOPHAGOGASTRODUODENOSCOPY BALLOON DILATION <30MM 12/13/2024 7:12 AM CDT Dysphagia, unspecified type EGD 12/13/2024 7:11 AM CDT POCT URINALYSIS DIPSTICK Routine 025 10:24 AM CDT Burning with urination MRI INTERNAL AUDITORY CANAL INCL BRAIN W WO CONTRAST Schedule Routine, Read Routine (OP Routine) 11/16/2024 1:37 PM CDT Unspecified disorder of visual pathways XR PELVIS 1 OR 2 VIEWS Schedule Routine, Read Routine (OP Routine) 11/16/2024 11:42 AM CDT Encounter for imaging to screen for metal prior to magnetic resonance imaging (MRI) VITAMIN B12 Routine 11/08/2024 4:04 PM CDT Unspecified disorder of visual pathways VITAMIN B1 Routine 11/08/2024 4:04 PM CDT Unspecified disorder of visual pathways METHYLMALONIC ACID, SERUM Routine 2024 4:04 PM CDT Unspecified disorder of visual pathways MAGNESIUM Routine 11/08/2024 4:04 PM CDT Unspecified disorder of visual pathways RPR Routine 11/08/2024 4:04 PM CDT Unspecified disorder of visual pathways HIV 1/2 ANTIBODY PLUS P24 ANTIGEN Routine 11/08/2024 4:04 PM CDT Unspecified disorder of visual pathways TREPONEMAL IGG/IGM Routine 11/08/2024 4:04 PM CDT Unspecified disorder of visual pathways FUNDUS PHOTOS/FAF - OU - BOT H EYES Routine 11/08/2024 2:59 PM CDT Unspecified disorder of visual pathways OCT, RETINA - OU - BOTH EYES Routine 2:59 PM CDT Unspecified disorder of visual pathways OCT, OPTIC NERVE - OU - BOTH EYES Routine 11/08/2024 2:58 PM CDT Unspecified disorder of visual pathways NEURO CT OUTSIDE REFERENCE Routine 11/08 2:34 PM CDT Diagnosis unknown HEPATITIS C ANTIBODY Routine 10/26/2024 2:06 PM CDT HM PAP SMEAR WITH HPV Routine 01/05/2019 SCREENING MAMMOGRAM Routine 06/09/2017 8:07 PM 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 Testing performed by: [address] [address] Trop T hs delta -1 ng/L KIM PENNINGTON Comment:Testing performed by : [facility], [address] [place] [address]., [address] Trop T hs interp Insignificant KIM PENNINGTON Comment:Testing performed by : [address] [address] Blood 12/22/2024 7:04 PM CDT 12/22/2024 7:07 PM CDT us Fawad Díaz DO LAB BLOOD ORDERABLES Final Res ult KIM PENNINGTON [address] [facility] Department [place] [address] * XR Chest PA Lateral 2 Views (If patient hemodynamically stable and ambulatory) (12/22/2024 5:43 PM CDT) Anatomical Region Laterality Modality Body, Chest N/A Computed Radiogr aphy 12/22/2024 8:40 PM CDT Narrative 12/22/2024 8:41 PM CDT EXAM DESCRIPTION: XR CHEST PA LATERAL 2 VIEWS REASON FOR STUDY: chest pain Pt states chest pain today TECHNIQUE: 2 radiographic view(s) of the chest. COMPARISON: None FINDINGS: LUNGS: Mild bibasilar atelectasis. No focal opacity, pleural effusion, or pneumothorax. HEART/MEDIASTINUM: Cardiac silhouette normal in size. Mediastinal and hilar contours appear normal. LINES/TUBES: None. BONES: No acute osseous abnormality. IMPRESSION: No acute cardiopulmonary abnormality. THIS IS AN ELECTRONICALLY VERIFIED FINAL REPORT 12/22/2024 8:41 PM - Electronically signed by Mendy Dumont M.D. FT: FT Report ID: [id number] Reading Location: [id number] Procedure Note Mendy Turcios MD - 12/22/2024 EXAM DESCRIPTION: XR CHEST PA LATERAL 2 VIEWS REASON FOR STUDY: chest pain Pt states chest pain today TECHNIQUE: 2 radiographic view(s) of the chest. COMPARISON: None FINDINGS: LUNGS: Mild bibasilar atelectasis. No focal opacity, pleural effusion, or pneumothorax. HEART/MEDIASTINUM: Cardiac silhouette normal in size. Mediastinal andhilar contours appear normal. LINES/TUBES: None. BONES: No acute osseous abnormality. IMPRESSION: No acute cardiopulmonary abnormality. THIS IS AN ELECTRONICALLY VERIFIED FINAL REPORT 12/22/2024 8:41 PM - Electronically signed by Mendy Dumont M.D. FT: FT Report ID: [id number] Reading Location: [id number] Fawad Díaz DO IMG XR PROCEDURES Final Result * Troponin T high-sensitivity series (baseline, 2hr, 4hr, 6hr) (12/22/2024 5:15 PM CDT) Trop T hs 9 <=14 ng/L Comment: Interpretive Data For further hscTnT resources including the diagnostic algorithm and an aid in interpretation, copy and paste this link: https://nrl.testcatalog.org/show/hsTrop Current Interpretive Data last revised 2020. Testing performed by: [facility], [address] [place] [address]., [id number] Blood 12/22/2024 5:15 PM CDT 12/22/2024 5:18 PM CDT us Fawad Díaz DO LAB BLOOD ORDERABLES Final Res ult KIM [address] [facility] Department [place] [address] * eGFR (12/22/2024 5:15 PM CDT) eGFR >90 >=60 mL/min/1. 73 m2 Comment: Interpretive Data Reference Interval Normal >/= 90 mL/min/1.73m2 Mildly decreased* 60 - 89 mL/min/1.73m2 Mildly to moderately decreased 45 - 59 mL/min/1.73m2 Moderately to severely decreased 30 - 44 mL/min/1.73m2 Severely decreased 15 - 29 mL/min/1.73m2 Kidney Failure < 15 mL/min/1.73m2 *Relative to young adult level Estimated glomerular filtration rate is determined by the 2020 CKD-EPI equation recommended by the National Kid[employer] (A Unifying Approach to GFR Estimation: Recommendations of the NKF-ASK Task Force on Reassessing the Inclusion of Race in Diagnosing Kidney Disease, JASN 2020). The CKD-EPI equation should not be used for patients with unstable renal function and has not been validated in children and those over 70. Current interpretive data was last reviewed 2021. Testing performed by: [facility], [address] [place] [address]., [id number] Blood 12/22/2024 5:15 PM CDT 12/22/2024 5:18 PM CDT us Fawad Díaz DO LAB BLOOD ORDERABLES Final Res ult KIM 5[address] [facility] [place] [address] * Differential, auto (12/22/2024 5:15 PM CDT) Neutrophil abs 3.70 1.50 - 6.50 K/cumm Comment:Testing performed by : [address] [address] Imm gran abs 0.01 0.00 - 0.10 K/cumm KIM Comment:Testing performed by : [address] [address] Lymphocyte abs 1.25 0.80 - 3.30 K/cumm KIM Comment:Testing performed by : [address] [address] Monocyte abs 0.62 0.20 - 0.80 K/cumm KIM Comment:Testing performed by : [address] [address] Eosinophil abs 0.07 0.00 - 0.50 K/cumm KIM Comment:Testing performed by : [address] [address] Basophil abs 0.02 0.00 - 0.10 K/cumm KIM Comment:Testing performed by : [address] [address] Neutrophil pct 65.3 % KIM Comment: Interpretive Data Percent cell count reference ranges are not reported, since discordance with absolute values may lead to misinterpretation of CBC data. Current Interpretive Data was last revised on 2017. Testing performed by: [address] [address] Imm gran pct 0.2 % KIM Comment: Interpretive Data Percent cell count reference ranges are not reported, since discordance with absolute values may lead to misinterpretation of CBC data. Current Interpretive Data was last revised on 2017. Testing performed by: [address] [address] Lymphocyte pct 22.0 % KIM Comment: Interpretive Data Percent cell count reference ranges are not reported, since discordance with absolute values may lead to misinterpretation of CBC data. Current Interpretive Data was last revised on 2017. Testing performed by: [address] [address] Monocyte pct 10.9 % KIM Comment: Interpretive Data Percent cell count reference ranges are not reported, since discordance with absolute values may lead to misinterpretation of CBC data. Current Interpretive Data was last revised on 2017. Testing performed by: [address] [address] Eosinophil pct 1.2 % KIM Comment: Interpretive Data Percent cell count reference ranges are not reported, since discordance with absolute values may lead to misinterpretation of CBC data. Current Interpretive Data was last revised on 2017. Testing performed by: [address] [address] Basophil pct 0.4 % KIM Comment: Interpretive Data Percent cell count reference ranges are not reported, since discordance with absolute values may lead to misinterpretation of CBC data. Current Interpretive Data was last revised on 2017. Testing performed by: [address] [address] Blood 12/22/2024 5:15 PM CDT 12/22/2024 5:18 PM CDT us Fawad Díaz DO LAB BLOOD ORDERABLES Final Res ult [facility] Department [place] [address] * CBC with auto differential (12/22/2024 5:15 PM CDT) WBC 5.67 3.80 - 9.90 K/cumm Comment:Testing performed by : [address] [address] Hgb 12.5 11.9 - 15.5 g/dL KIM Comment:Testing performed by : [address], [address] Hct 36.4 35.6 - 45.5 % KIM Comment:Testing performed by : [address] [address] Plt 249 150 - 400 K/cumm KIM Comment:Testing performed by : [address] [address] MPV 9.6 9.1 - 12.3 fL KIM Comment:Testing performed by : [address] [address] RBC 4.39 3.90 - 5.20 M/cumm KIM Comment:Testing performed by : [address] [address] MCV 82.9 81.3 - 96.4 fL KIM Comment:Testing performed by : [address] [address] MCH 28.5 27.1 - 33.3 pg KIM Comment:Testing performed by : [address] [address] MCHC 34.3 32.3 - 35.7 g/dL KIM Comment:Testing performed by : [address], [address] RDW CV 12.6 11.1 - 14.9 % KIM Comment:Testing performed by : [address] [address] RDW SD 38.3 35.7 - 48.1 fL KIM Comment:Testing performed by : [address] [address] NRBC abs 0.00 0.00 - 0.01 K/cumm KIM Comment:Testing performed by : [address] [address] Blood Venous blood specimen / Unknown 12/22/2024 5:15 PM CDT 12/22/2024 5:18 PM CDT us Fawad Díaz DO LAB BLOOD ORDERABLES Final Res ult KIM 9805 [facility] Department [place] [address] * Comprehensive metabolic panel (12/22/2024 5:15 PM CDT) Sodium 136 135 - 145 mmol/L Comment:Testing performed by : [address] [address] Potassium, pl 3.8 3.3 - 4.9 mmol/L KIM Comment:Testing performed by : [address] [address] Chloride 100 97 - 110 mmol/L KIM Comment:Testing performed by : [address] [address] CO2 22 22 - 32 mmol/L KIM Comment:Testing performed by : [address] [address] Anion gap 14 2 - 15 mmol/L KIM Comment:Testing performed by : [address] [address] BUN 8 6 - 25 mg/dL KIM Comment:Testing performed by : [address] [address] Creatinine 0.70 0.60 - 1.10 mg/dL KIM Comment:Testing performed by : [address] [address] Glucose 96 70 - 199 mg/dL KIM Comment: Interpretive Data Fasting glucose >/= 126 mg/dl is diagnostic for diabetes. Fasting is defined as no caloric intake for at least 8 hours. Fasting glucose between 100 mg/dl to 125 mg/dl is diagnostic of prediabetes. In a patient with classic symptoms of hyperglycemia or hyperglycemic crisis, a random glucose >/= 200 mg/dl is diagnostic for diabetes. In the absence of unequivocal hyperglycemia, results should be confirmed by repeat testing. The classification and Diagnosis of Diabetes Diabetes Care 202; 46: S19-S40. Current interpretive data was last revised 2022. Testing performed by: [address] [address] Calcium 9.3 8.5 - 10.3 mg/dL KIM Comment:Testing performed by : [address], [address] Bilirubin, total 0.2 0.1 - 1.2 mg/dL KIM Comment:Testing performed by : [address] [address] Protein, pl 7.1 6.5 - 8.5 g/dL KIM Comment:Testing performed by : [address], [address] Albumin 4.4 3.5 - 5.0 g/dL KIM Comment:Testing performed by : [address], [address] Alk phos 94 40 - 130 Units/L KIM Comment:Testing performed by : [address] [address] ALT 29 7 - 45 Units/L KIM Comment:Testing performed by : [address] [address] AST 25 10 - 45 Units/L KIM Comment:Testing performed by : [address] [address] Blood 12/22/2024 5:15 PM CDT 12/22/2024 5:18 PM CDT us Fawad Díaz DO LAB BLOOD ORDERABLES Final Res ult Performing Organization Address City/State/[facility] Co de Phone Number KIM 1721 [facility] Department of Laboratories [place], [place] [id number] * ECG 12 lead (12/22/2024 4:53 PM CDT) Ventricular Rate EKG/Min 72 BPM [facility] Atrial Rate 72 BPM [facility] AR-Interval (MSEC) 150 ms [facility] QRS-Interval (MSEC) 90 ms [facility] QT-Interval (MSEC) 394 ms [facility] QTc 431 ms [facility] P [place] 20 degrees [facility] R [place] -57 degrees [facility] T [place] 20 degrees [facility] Diagnosis Normal sinus rhythm Left anterior fascicular block Abnormal ECG When compared with ECG of 05-AUG-2017 14:04, No significant change was found Confirmed by LOKI FONG M.D. ([id number]) on 12/24/2024 4:39:52 PM [facility] [employer] 12/22/2024 4:53 PM CDT 12/24/2024 4:39 PM CDT us Fawad Díaz DO ECG ORDERABLES Final Result [facility] [employer] [facility] * Surgical pathology (12/13/2024 7:28 AM CDT) Tissue (Esophageal biopsy) 12/13/2024 7:28 AM CDT Narrative PATHOLOGY [facility] - 12/14/2024 10:38 AM CDT [facility] Department of Pathology [address] [place] [address] Note to Patients: This report may contain a detailed description of human tissue sent by a health care provider to the laboratory for pathologic evaluation. The content of this report is essential for diagnosis and may provide important critical findings. This information may be unfamiliar to patients to review without a medical professional present. It is advised that the patient review this report in the presence of a health care provider who can answer questions and explain the details. Final Report Patient Name: LYUBOV STEINBERG : 1965 (Age: 59) Gender: F Address: [address] [place] [id number] Hospital #: [id number] Service: Gastro Location: Patient Type: [facility] OUTPATIENT Taken: 12/13/2024 Received: 12/13/2024 Accessioned: 12/13/2024 Reported: 12/14/2024 Physician(s): MD Lei Bautsita D.Fuentes Diagnosis: A. Esophagus, proximal and distal esophagus, biopsy - Normal esophageal squamous mucosa Amy Moody MD Report Electronically Reviewed and Signed Out By Amy Moody MD 12/14/2024 10:38:35 Specimen(s) Received: A: Proximal and distal esophagus biopsy rule out EOE-cold biopsy Microscopic Description: Unless gross-only is specified, the final diagnosis for each specimen is based on a microscopic examination of each tissue sample. [id number] Distribution Clinical History: The patient is a 59-year-old woman with unspecified dysphagia. Operative procedure: Upper GI endoscopy with biopsy. Gross Description Received in formalin, labeled with the patient s identifiers and proximal and distal esophagus biopsy rule out EOE-cold biopsy and consists of five ortega-white tissue fragments ranging from 0.1-0.5 cm. Entirely submitted. Labeled A1. Jar 0. jjmhb/12/13/2024 11:44 MARLEEN Chavez, PA (ASCP) Microscopic slide review and interpretation for this case was performed at [facility], Department of Surgical Pathology, [address] [facility], [place] [id number] [id number] CLIA # [id number] Brandon Kramer MD LAB PATHOLOGY ORDERABLES Final Result PATHOLOGY [facility] * EGD (12/13/2024 7:11 AM CDT) Anatomical Region Laterality Modality Other Narrative Procedure Note Brandon Kramer MD - 12/13/2024 7:11 AM CDT [facility] GI ENDOSCOPY Patient Name: Lyubov Steinberg Procedure Date: 12/13/2024 7:11 AM Date of : 1965 Admit Type: Outpatient Age: 59 Gender: Female Attending MD: Brandon Kramer M.D., Room: [facility] ENDOSCOPY ROOM 04 Note Status: Finalized Procedure: Upper GI endoscopy Indications: Dysphagia Referring MD: Providers: Brandon Kramer M.D. Medicines: See the Anesthesia note for documentation of the administered medications Complications: No immediate complications. Estimated Blood Loss: Estimated blood loss was minimal. Procedure: Pre-Anesthesia Assessment: - Prior to the procedure, a History and Physicalwas performed, and patient medications and allergieswere reviewed. The risks and benefits of the procedureand the sedation options and risks were discussed withthe patient. All questions were answered and informed consent was obtained. Patient identification and proposed procedure were verified. After reviewingthe risks and benefits, the patient was deemed in satisfactory condition to undergo the procedure.The anesthesia plan was to use monitored anesthesiacare (MAC). Immediately prior to administration of medications, the patient was re-assessed foradequacy to receive sedatives. The heart rate, respiratory rate, oxygen saturations, blood pressure, adequacyof pulmonary ventilation, and response to care were monitored throughout the procedure. The physical status of the patient was re-assessed after the procedure. The benefits, risks, and alternatives to theprocedure and sedation were discussed and informed consentwas obtained. The scope was passed under direct vision. The Endoscope was introduced through the mouth, and advanced to the second part of duodenum. The upperGI endoscopy was accomplished without difficulty. The patient tolerated the procedure well. Findings: The examined esophagus was normal. The whole esophagus wasempirically balloon dilated - a TTS dilator was passed through the scope.Dilation with a 15-16.5-18 mm CRE balloon (to a maximum balloon size of 18 mm) dilator was performed without a mucosal disruption/heme noted post dilation. Biopsies were obtained from the proximal and distalesophagus with cold forceps for histology of suspected eosinophilicesophagitis. The entire examined stomach was normal. Small sliding type hiatal hernia. The examined duodenum was normal. Impression: - Normal esophagus. Dilated. Biopsied. - Hiatal hernia. - Normal stomach. - Normal examined duodenum. Recommendation: - Await pathology results. - Resume previous diet today. - Discharge patient to home. - Assess response to dilation. If progressive/persistent dysphagia and biopsies unremarkable, then consider esophagram andesophageal manometry as the next step if not previouslypursued. - Patient has a contact number available for emergencies. The signs and symptoms of potential delayed complications were discussed with thepatient. Return to normal activities tomorrow. Written discharge instructions were provided to thepatient. - I would be happy to see you in my GI clinic ifyou have further questions or concerns or if symptoms progress Brandon Kramer M.D. 12/13/2024 7:37:43 AM Number of Addenda: 0 Note Initiated On: 12/13/2024 7:11 AM Recognized by the [employer] for promoting quality in endoscopy Brandon Kramer MD ENDOSCOPY PROCEDURES Dorene l Result * POCT urinalysis dipstick (11/29/2024 10:24 AM CDT) Glucose, ur, POC Negative Negative Bilirubin, ur, POC Negative Negative Ketones, ur, POC Negative Negative Specific [place], POC 1.010 1.003 - 1.030 Blood, ur, POC Negative Negative pH, ur, POC 7.5 5.0 - 8.0 Protein, ur, POC Negative Negative Urobilinogen, urine, POC 0.2 0.2 - 1.0 mg/dL Nitrite, ur, POC Negative Negative Leukocytes, ur, POC Negative Negative Lot Number [id number] Urine 11/29/2024 10:2 4 AM CDT us Lei Novoa DO POINT OF CARE TEST ORD ERABLES Final Result * MRI Internal Auditory Canal Brain W WO Contrast (11/16/2024 1:37 PM CDT) Anatomical Region Laterality Modality Head and Neck N/A Magnetic Resonan ce 11/16/2024 2:53 PM CDT Impressions 11/16/2024 6:25 PM CDT No lesions in the posterior fossa, internal auditory canals, or temporal bones to explain the patient's symptoms. Dictated by: Bk Barber M.D. The radiology attending physician has personally reviewed this study, and had reviewed and/or edited this written report and agrees with it. Electronically signed by: Miguel Watkins MD, PHD Narrative 11/16/2024 6:25 PM CDT EXAMINATION: Magnetic resonance imaging (MRI) of the brain and brainstem without and with contrast HISTORY: 59 years-old Female with saccadic intrusions, assess CPA angle. TECHNIQUE: Multiplanar multi-weighted MRI of the brain and brainstem was performed without and with intravenous contrast using the general brain protocol. Additionally sequences detailing the internal auditory canals and posterior fossa were acquired as a part of the internal auditory canal protocol. Contrast information: 16 mL Gadoterate Meglumine IV COMPARISON: Outside CT head 08/30/2024. MRI brain 07/04/2018. FINDINGS: The cerebellopontine angles are normal, with no evidence of extra-axial mass or aneurysm. The VII/VIII nerve complexes appear normal. The upper cervical spinal cord and spine are normal. There is no abnormal contrast enhancement. Generalized parenchymal volume loss with corresponding prominence of ventricular system. No acute findings in the calvarium. Small superficial rounded nonenhancing T1 intermediate T2 hyperintense lesions, likely sebaceous cysts versus epidermoid inclusion cysts. The superior sagittal sinus demonstrates normal venous flow. The corpus callosum is normal in shape and signal intensity. The posterior fossa is unremarkable. The pituitary and sella are normal. Degenerative changes about the atlantoaxial articulation without significant narrowing foramen magnum. Diffusion weighted images reveal no hyperintensities to suggest acute cerebral infarction. The susceptibility weighted sequences reveal no evidence of acute or chronic hemorrhage. The ventricles are normal in size and position without evidence of hydrocephalus. The paranasal sinuses are normal. The visualized portions of the mastoids are unremarkable. Changes prior bilateral lens surgery. Normal flow voids are demonstrated in the carotid arteries and basilar artery. Procedure Note Miguel Watkins MD PhD - 11/16/2024 EXAMINATION: Magnetic resonance imaging (MRI) of the brain and brainstem without and with contrast HISTORY: 59 years-old Female with saccadic intrusions, assess CPA angle. TECHNIQUE: Multiplanar multi-weighted MRI of the brain and brainstem was performed without and with intravenous contrast using the general brain protocol. Additionally sequences detailing the internal auditory canals and posterior fossa were acquired as a part of the internal auditory canal protocol. Contrast information: 16 mL Gadoterate Meglumine IV COMPARISON: Outside CT head 08/30/2024. MRI brain 07/04/2018. FINDINGS: The cerebellopontine angles are normal, with no evidence of extra-axial mass or aneurysm. The VII/VIII nerve complexes appear normal. The upper cervical spinal cord and spine are normal. There is no abnormal contrast enhancement. Generalized parenchymal volume loss with corresponding prominence of ventricular system. No acute findings in the calvarium. Small superficial rounded nonenhancing T1 intermediate T2 hyperintense lesions, likely sebaceous cysts versus epidermoid inclusion cysts. The superior sagittal sinus demonstrates normal venous flow. The corpus callosum is normal in shape and signal intensity. The posterior fossa is unremarkable. The pituitary and sella are normal. Degenerative changes about the atlantoaxial articulation without significant narrowing foramen magnum. Diffusion weighted images reveal no hyperintensities to suggest acute cerebral infarction. The susceptibility weighted sequences reveal no evidence of acute or chronic hemorrhage. The ventricles are normal in size and position without evidence of hydrocephalus. The paranasal sinuses are normal. The visualized portions of the mastoids are unremarkable. Changes prior bilateral lens surgery. Normal flow voids are demonstrated in the carotid arteries and basilar artery. IMPRESSION: No lesions in the posterior fossa, internal auditory canals, or temporal bones to explain the patient's symptoms. Dictated by: Bk Barber M.D. The radiology attending physician has personally reviewed this study, and had reviewed and/or edited this written report and agrees with it. Electronically signed by: Miguel Watkins MD, PHD Heidi West MD IMG MRI PROCEDURES Dorene l Result * XR Pelvis 1 or 2 Views (11/16/2024 11:42 AM CDT) Anatomical Region Laterality Modality Body, Pelvis N/A Computed Radiogr aphy 11/16/2024 12:1 7 PM CDT Impressions 11/16/2024 12:17 PM CDT Right presacral nerve stimulator device in expected position. Electronically signed by: Bull Curtis M.D. Narrative 11/16/2024 12:17 PM CDT XR PELVIS 1 OR 2 VIEWS HISTORY: MRI screening. FINDINGS: 2 views of the pelvis are obtained and compared with 02/25/2021. There is no fracture. The joint spaces are preserved. There is unchanged combined anterior and posterior instrumented L5-S1 fusion. There is interval placement of a right presacral nerve stimulator device. The generator overlies the right buttock. Leads are continuous. Surgical clips overlie the left inguinal region. Procedure Note Bull Curtis MD - 11/16/2024 XR PELVIS 1 OR 2 VIEWS HISTORY: MRI screening. FINDINGS: 2 views of the pelvis are obtained and compared with 02/25/2021. There is no fracture. The joint spaces are preserved. There is unchanged combined anterior and posterior instrumented L5-S1 fusion. There is interval placement of a right presacral nerve stimulator device. The generator overlies the right buttock. Leads are continuous. Surgical clips overlie the left inguinal region. IMPRESSION: Right presacral nerve stimulator device in expected position. Electronically signed by: Bull Curtis M.D. Bella Caceres MD PhD IMG XR PROCEDURES Fi nal Result * Treponemal IgG/IgM Blood (11/08/2024 4:04 PM CDT) Treponemal IgG/IgM Nonreactive Nonreactive Comment: Interpretive Data: If test is reported as EQUIVOCAL, a new sample should be drawn in two weeks for testing. Current interpretive data was last revised on 2018. Blood 11/08/2024 4:04 PM CDT 11/08/2024 5:14 PM CDT Heidi West MD LAB MICROBIOLOGY - GENE [facility] ORDERABLES Final Result Performing Organization Address [facility] Co de Phone Number KIM [facility] [place] [address] * HIV 1/2 Antibody plus p24 Antigen Blood (11/08/2024 4:04 PM CDT) Pathologist [facility] HIV 1/2 ab + p24 ag Nonreactive Nonreactive Comment:Nonreactive for HIV- 1 antigen and HIV-1/HIV-2 antibodies. No laboratory evidence of HIV infection. If acute HIV infection is suspected, consider testing for HIV-1 RNA. Current interpretive data was last revised on 22. Blood 11/08/2024 4:04 PM CDT 11/08/2024 5:14 PM CDT Heidi West MD LAB MICROBIOLOGY - GENE [facility] ORDERABLES Final Result Performing Organization Address [facility] de Phone Number KIM [facility] [employer] [place] [address] * Methylmalonic acid, serum (11/08/2024 4:04 PM CDT) Pathologist [facility] MMA 0.20 <=0.40 nmol/mL An[facility] ref Lab Comment: ADDITIONAL INFORMATION This test was developed and its performance characteristics determined by [facility] in a manner consistent with CLIA requirements. This test has not been cleared or approved by the U.S. Food and Drug Administration. Test Performed by: [facility] - [address] [address] Rum Processing Operator: Laz Velasquez Ph.D.; CLIA# [id number] Blood 11/08/2024 4:04 PM CDT 11/08/2024 7:28 PM CDT Heidi West MD LAB BLOOD ORDERABLES Fi nal Result Performing Organization Address [facility] de Phone Number [facility] [place] [address] [place] ref Lab * RPR Blood (11/08/2024 4:04 PM CDT) RPR Nonreactive Nonreactive Blood 11/08/2024 4:04 PM CDT 11/08/2024 5:14 PM CDT Result [facility] Heidi West MD LAB MICROBIOLOGY - GENE RAL ORDERABLES Final Result Performing Organization Address [facility] Phone Number [facility] [place] [address] * Vitamin B1 (11/08/2024 4:04 PM CDT) Pathologist [facility] Thiamine (Vit B1) 151 70 - 180 nmol/L [place] ref Lab Comment: ADDITIONAL INFORMATION This test was developed and its performance characteristics determined by [facility] in a manner consistent with CLIA requirements. This test has not been cleared or approved by the U.S. Food and Drug Administration. Test Performed by: [facility] - [address] [address] [employer] Operator: Laz Velasquez Ph.D.; CLIA# [id number] Blood 11/08/2024 4:04 PM CDT 11/08/2024 5:18 PM CDT Heidi West MD LAB BLOOD ORDERABLES Fi nal Result Performing Organization Address [facility] de Phone Number [facility] Department [place] [address] An[facility] ref Lab * Magnesium (11/08/2024 4:04 PM CDT) Magnesium 2.2 1.4 - 2.5 mg/dL Blood 11/08/2024 4:04 PM CDT 11/08/2024 5:14 PM CDT Heidi West MD LAB BLOOD ORDERABLES Fi nal Result Performing Organization Address [facility] [place] [address] * Vitamin B12 (11/08/2024 4:04 PM CDT) Pathologist [facility] Vitamin B12 554 230 - 1,250 pg/mL Blood 11/08/2024 4:04 PM CDT 11/08/2024 5:14 PM CDT Result [facility] Heidi West MD LAB BLOOD ORDERABLES Fi nal Result Performing Organization Address [facility] [place] [address] * Fundus Photos/FAF - OU - Both Eyes (11/08/2024 2:59 PM CDT) Anatomical Region Laterality Modality Head Fundus Photograp hy Narrative 11/09/2024 10:24 AM CDT Right Eye Quality was good. Progression has no prior data. Disc findings include normal observations. Macula findings include normal observations. Vessel findings include normal observations. Periphery findings include normal observations. Left Eye Quality was good. Progression has no prior data. Disc findings include normal observations. Macula findings include normal observations. Vessel findings include normal observations. Periphery findings include normal observations. Notes Normal disc, vessel, macula and periphery OU. Normal background auto fluorescence OU. us Jai Padron MD OPHTH PHOTOGRAPHY Ed ited Result - Final * OCT, Retina - OU - Both Eyes (11/08/2024 2:59 PM CDT) Central Macular Thickness OS 247 mircometers CONTINUUM Central Macular Thickness OD 236 micrometers CONTINUUM Anatomical Region Laterality Modality Head Other Narrative 11/09/2024 10:24 AM CDT Right Eye Quality was good. Progression has no prior data. Findings include normal observations, normal foveal contour. Macular thickness was 236 micrometers. Left Eye Quality was good. Progression has no prior data. Findings include normal observations, normal foveal contour. Macular thickness was 247 mircometers. Notes Normal GCC thickness both eyes (OU) Jai Padron MD OPHTH TOMOGRAPHY Fin al Result * OCT, Optic Nerve - OU - Both Eyes (11/08/2024 2:58 PM CDT) RNFL OS 93 micrometers CONTINUUM RNFL OD 100 micrometers CONTINUUM Anatomical Region Laterality Modality Head Other Narrative 11/09/2024 10:24 AM CDT Right Eye Reliability was good. Average RNFL thickness 100 micrometers. Left Eye Reliability was good. Average RNFL thickness 93 micrometers. Notes Normal baseline RNFL Jai Padron MD OPHTH TOMOGRAPHY Fin al Result * Neuro CT Outside Reference (11/08/2024 2:34 PM CDT) Impressions [facility] - 11/08/2024 2:34 PM CDT These images are for Reference purposes only and have not been reviewed by [facility] Radiology. There will be no report generated by a [facility] Radiologist. Narrative [facility] - 11/08/2024 2:34 PM CDT EXAMINATION: Images For Reference Purposes Only Jai Padron MD IMG CT PROCEDURES Fi nal Result [facility] * Hepatitis C antibody Blood (10/26/2024 2:06 PM CDT) Hep C Ab Nonreactive Nonreactive Comment: Antibodies to HCV not detected. Does NOT exclude the possibility of recent exposure to HCV. Current interpretive data was last revised on 22 Interpretive Data Nonreactive: Antibodies to HCV not detected. Does NOT exclude the possibility of recent exposure to HCV. Equivocal: Equivocal for HCV antibodies. Supplemental molecular testing will be automatically performed to determine infection status in accordance with current CDC screening recommendations. Reactive: Positive for HCV antibodies. This may represent current or past HCV infection. Supplemental molecular testing will be automatically performed to determine current infection status in accordance with current CDC screening recommendations. Interpretive data was last revised on 2019. Blood 10/26/2024 2:06 PM CDT 10/26/2024 5:59 PM CDT Manuelito Reeves MD LAB MICROBIOLOGY [facility] Final Result [facility] [address] [facility] Department [place] [address] * PAP SMEAR WITH HPV (01/05/2019) HM Pap smear Normal Historical Provider HEALTH MAINTENANCE Final Result * Screening Mammogram (06/09/2017 8:07 PM PROCESS CONTROL PROGRAMMER) Anatomical Region Laterality Modality Breast N/A Mammography 06/09/2017 8:07 PM PROCESS CONTROL PROGRAMMER Narrative 06/09/2017 10:46 PM PROCESS CONTROL PROGRAMMER SUSIE ELIZABETH M.D. FINAL REPORT ACC# Date Time Exam [id number] Jun 09, 2017 15:04:00 [facility] [id number] Chest Sonogram L [id number] Jun 09, 2017 14:07:00 [facility] 64219 Diag Mamm, inc CAD, unilat L Technologist(s): [...] with the patient. Electronically signed by: Susie Elizabeth M.D. Requested By: Swati Mi M.D. Dictated By: SUSIE ELIZABETH M.D. on Jun 09 2017 4:44P This document has been electronically signed by: SUSIE ELIZABETH M.D. on Jun 09 2017 4:44P [id number] ELIZABETH M.D. FINAL REPORT Attending: SWATI MI Requesting: Swati Mi Requesting Fax: Attending Fax: Attending ID: [id number] Requesting ID: [id number] Report To 1 ID: [id number] Report To 1 Name: , Report To 1 FAX: NextGen Order #: Procedure Note Miscellaneous, Not In File - 06/09/2017 SUSIE ELIZABETH M.D. FINAL REPORT ACC# Date Time Exam [id number] Jun 09, 2017 15:04:00 [facility] [id number] Chest Sonogram L [id number] Jun 09, 2017 14:07:00 [facility] [id number] Diag Mamm, inc CAD, unilat L Technologist(s): [...] with the patient. Electronically signed by: Susie Elizabeth M.D. Requested By: Swati Mi M.D. Dictated By: SUSIE ELIZABETH M.D. on Jun 09 2017 4:44P This document has been electronically signed by: SUSIE ELIZABETH M.D. on Jun 09 2017 4:44P [id number] ELIZABETH M.D. FINAL REPORT Attending: SWATI MI Requesting: Swati Mi Requesting Fax: Attending Fax: Attending ID: [id number] Requesting ID: [id number] Report To 1 ID: [id number] Report To 1 Name: , Report To 1 FAX: NextGen Order #: Swati Mi MD IMG MAMMO PROCEDURES Final Result * Colonoscopy (03/14/2015) Anatomical Region Laterality Modality Other Historical Provider ENDOSCOPY PROCEDURES Dorene l Result from Last 3 Months or Most Recently Relevant to Health Maintenance Insurance [employer]S [employer] Care Teams Ciso Relationship Specialty Start Date End Date Lei Novoa DO [address] [place] [id number] PCP - General Family Medicine 10/30/24 Jhonathan Gonzalez MD [address] [address] Consulting Physician Obstetrics and Gynecology 10/27/24
--- OUTSIDE RECORDS SUMMARY | 2025-01-28 20:36 | XMS_ITS | Encounter Summary ---
Author Organization [facility] Healthcare Address [address] [place] [address] Care Team Providers Care Consultant Dietitian Name Role Phone Jhonathan Gonzalez MD Unavailable [phone] Lei Novoa DO Primary Care Provider Encounter Details Date Type Department Care Team (Latest Contact Info) Description 12/27/2024 Results Follow-Up [facility] Medical [facility] Gastroenterology at [address] [place] [address] Brandon Kramer MD [address] [place] [address] [address] [place] [address] Surgical pathology Social History Tobacco Use Types Packs/Day Years [...] on file 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
--- OUTSIDE RECORDS SUMMARY | 2025-01-28 20:36 | XMS_ITS | Clinical Summary ---
Author Organization [facility] Address [address] [place] [address] Care Team Providers Care Cutter Machine Name Role Phone Lei Novoa DO Primary Care Provider Source Comments [facility],non-owned Affiliates and Associated Physician Practices is amultiple site organization consisting of ambulatory clinics and hospital sitesin [place], [place], [place] and [place]. This disclosure is being madepursuant to the Care Everywhere program and may not contain all information available regarding this patient. Last updated 18.[facility] Allergies Active Allergy Reactions Criticality Noted Date Comments Cephalexin Unknown 2024 Tramadol Rash Medium 2024 Medications * Be aware that medications may not be up to date on this document. Alwaysverify current medications with the patient. losartan (Cozaar) 50 MG tablet Take 1 (one) tablet by mouth once daily 03/23/2024 Active lamoTRIgine (LaMICtal) 100 MG tablet Take 1 (one) tablet by mouth once daily 08/22/2024 Active busPIRone (Buspar) 15 MG tablet 07/05/2024 Active ARIPiprazole (Abilify) 2 MG tablet Take 1.5 (one and one-half) tablets by mouth once daily 12/16/2023 Active clomiPRAMINE (Anafranil) 75 MG capsule Take 1 (one) capsule by mouth at bedtime Active hydrOXYzine hcl (Vistaril) 25 MG/ML injection Inject 1 mL into muscle 2 times daily as needed Active omeprazole (PriLOSEC) 20 MG capsule Take 1 (one) capsule by mouth 2 times daily 06/16/2024 Active KlonoPIN 1 MG tablet 06/01/2023 Active mirtazapine (Remeron) 15 MG tablet Take 0.5 (one-half) tablet by mouth 09/18/2024 Active Social History Tobacco Use Types Packs/Day Years Used Date Smoking Tobacco: Never Assessed Comments Unknown Sex and Gender Information Value Date Recorded Sex Assigned at Not on file 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 Gender Identity Not on file Sexual Orientation Not on file Last Filed Vital Signs Vital Sign Reading Time Taken Comments Blood Pressure 136/86 2024 1:45 PM CDT Pulse - - Temperature - - Respiratory Rate - - Oxygen Saturation - - Inhaled Oxygen Concentration - - Weight 89.2 kg (196 lb 9.6 oz) 2024 1:45 P M CDT Height 162.6 cm (5' 4) 2024 1:45 PM CDT Body Mass Index 33.75 2024 1:45 PM CDT Plan of Treatment Health Maintenance Due Date Last Done Comments COLOGUARD (AGES 45-75) - COLON CA SCREENING 1965 CT COLONOGRAPHY - COLON CA SCREENING 1965 FIT - COLON CA SCREENING 1965 FLEX SIG - COLON CA SCREENING 1965 HIV SCREENING 10/02/1978 DTAP/TDAP/TD VACCINES (1 - Tdap) 10/02/1982 PNEUMOCOCCAL VACCINE 50+ (1 of 1 - PCV) 10/02/2013 ZOSTER VACCINE (1 of 2) 10/02/2013 MAMMOGRAM 06/09/2019 06/09/2017 DEPRESSION SCREENING 05/24/2024 SCREENING FOR DIABETES 2024 COVID-19 VACCINE ( season) 2025 06/01/2022, 09/06/2020, 08/16/2020 INFLUENZA VACCINE (#1) 2025 , 03/20/2022, 02/06/2020, Additional history exists COLON MONITORING 03/14/2025 03/14/2015 COLONOSCOPY - COLON CA SCREENING 03/14/2025 03/14/2015 Colorectal Cancer Screening 03/14/2025 PAP SMEAR 03/22/2026 03/22/2023, 03/22/2023 LIPID TESTING 07/26/2029 07/26/2024 Respiratory Syncytial Virus (RSV) Vaccine Pt: or over 60 yrs (1 - 1-dose 75+ series) 10/02/2038 HEPATITIS C SCREENING Completed 08/31/2024 HEPATITIS B [...] patient's age to complete this topic Insurance [facility] Care Teams Cutter Machine Relationship Specialty Start Date End Date Lei Novoa DO [address] [facility] [address] [place], [place] [id number] PCP - General Family Medicine 10/03/24
--- OUTSIDE RECORDS SUMMARY | 2025-01-28 20:36 | XMS_ITS | Encounter Summary ---
Author Organization [facility] Facility Care Team Providers Care Head Charger Name Role Phone RENÉE Berry Jr., Barney Odom Primary Care Provide r Jhonathan Gonzalez MD Unavailable [phone] Lei Novoa DO Primary Care Provider Encounter Details Date Type Department Care Team (Latest Contact Info) Description 09/30/2015 Orders Only [facility]INCON[facility] Provider, MD Lesli [address] [place] [id number] Social History Tobacco Use Types Packs/Day Years Used Date Smoking Tobacco: Never Assessed Alcohol Use Standard Drinks/Week Comments No 0 (1 standard drink = 0.6 oz pur e alcohol) Comments Unknown Sex and Gender Information Value Date Recorded Sex Assigned at Not on file 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 Historical Provider MD [facility] NATACHA SRINIVASAN Final Result documented in this encounter Visit Diagnoses Not on filedocumented in this encounter Care Teams Head Charger Relationship Specialty Start [place] [address] [address] PCP - General 07/29/16 10/29/24 Lei Novoa DO [address] [place] [address] PCP - General Family Medicine 10/30/24 Jhonathan Gonzalez MD [address] [address] Consulting Physician Obstetrics and Gynecology 10/27/24 documented as of this encounter
[2025-01-28 20:47] VITALS: BP 135/90; PULSE 73; RESP 18; TEMP 36.7; O2SAT 99
[2025-01-28 22:00] VITALS: BP 101/68; PULSE 90; RESP 17; O2SAT 94
[2025-01-28 22:44] LABS: Add Urine Microscopic? NO; Glucose Urine UA Negative (Negative); Leukocyte Esterase Ur Negative LEU/UL (Negative); Nitrate Urine Negative (Negative); Specific Grav Ur 1.004 (1.001-1.035)
[2025-01-28 22:58] LABS: Appearance Urine Clear (Clear)
[2025-01-28 23:00] VITALS: BP 117/68; PULSE 94; RESP 17; O2SAT 96
[2025-01-28 23:04] LABS: Cannabinoid Screen Urine Negative (Negative)
[2025-01-28 23:10] LABS: Hematocrit 34.5 % (37.0-47.0); Hemoglobin 12.4 g/dL (12.0-15.0); Immature Granulocyte Percent A 0.2 % (0-0.5); Lymphocytes Absolute Auto 0.95 K/mm3 (0.9-3.2); Mean Corpuscular HGB Conc 35.9 g/dl (32-36); Mean Corpuscular Hemoglobin 28.4 pg (26-34); Mean Corpuscular Volume 79.1 fl (80-100); Nucleated Red Blood Cells Absolute Auto 0.000 K/mm3 (0.0-0.012); Nucleated Red Blood Cells Perc 0.0 % (0.0-0.2); Platelet Count Result 227 k/mm3 (150-375); Red Blood Count 4.36 M/mm3 (4.2-5.4); White Blood Count 6.0 K/mm3 (4.5-10.0)
[2025-01-28 23:22] LABS: Acetaminophen < 10 ug/mL (10-30); Salicylate < 1.0 mg/dL (2-20)
[2025-01-28 23:25] LABS: Alanine Aminotransferase 30 U/L (6-35); Albumin Level 4.3 g/dL (3.5-5.1); Alkaline Phosphatase 90 U/L (38-126); Anion Gap 8 mmol/L (4-12); Aspartate Amino Transferase 36 U/L (14-36); Bilirubin,Total 0.5 mg/dL (0.2-1.3); Blood Urea Nitrogen 7 mg/dL (7-17); Calcium 9.4 mg/dL (8.4-10.2); Carbon Dioxide 28 mmol/L (22-30); Chloride 80 mmol/L (98-107); Estimated CRCL calculation 78 ml/min; Estimated Glomerular Filt Rate > 60; Glucose 110 mg/dL (65-110); Magnesium 1.7 mg/dL (1.6-2.3); Potassium 3.5 mmol/L (3.4-5.0); Sodium 116 mmol/L (137-145); Total Protein 7.1 g/dL (6.3-8.2)
[2025-01-28] MEDS: SODIUM CHLORIDE 0.9% IV 1,000 ML 999 ML IV CONT (23:35)
[2025-01-29] VITALS (18 sets, daily range): BP systolic 109–142; BP diastolic 59–87; PULSE 60–97; RESP 12–23; TEMP 36.3–36.9; O2SAT 95–99; BMI 31.4; BMI 31.6
[2025-01-29 00:02] LABS: Urea Random Urine 120 MG/DL
[2025-01-29 00:02] LABS: Thyroid Stimulating Hormone Reflex 1.680 uIU/mL (0.465-4.68)
--- NOTE | 2025-01-29 00:15 | ED_ITS ---
HPI - Female Genitourinary General Chief complaint: Urogenital-Female Stated complaint: unable to urinate Time Seen by Provider: 01/28/25 22:01 History of Present Illness HPI Narrative: Patient is a 59-year-old female who presents emergency department this evening complaining of urinary retention. Patient states that she does have chronic urinary retention does have a bladder stimulator but states that has not helped stimulate her to pee today. She feels like her bladder is fall but is denying any abdominal pain. Patient also does say that she has chronic suicidal ideations and panic disorder and sees a psychiatrist for this. This is not an acute issue, it is a chronic issue for her. Currently denying any active suicidal homicidal ideations or any active plan at this time. Other than the urinary tension is she is denying any additional symptoms or concerns. Related Data Home Medications ?Medication ?Instructions ?Recorded ?Confirmed ?Last Taken ?Type buspirone 10 mg tablet 10 mg BID 06/25/19 06/25/19 Unknown History clonazepam 0.5 mg tablet 0.5 mg BID 06/25/19 06/25/19 Unknown History aripiprazole 2 mg tablet mg 09/21/24 Unknown History lamotrigine 100 mg tablet mg 09/21/24 Unknown History losartan 50 mg tablet mg 09/21/24 Unknown History Allergies Allergy/AdvReac Type Severity Reaction Status Date / Time tramadol Allergy Unknown RASH Verified 01/28/25 20:50 cephalexin (From Keflex) AdvReac Mild Anxiety Verified 01/28/25 20:50 Review of Systems 2 Review of Systems: All systems are reviewed and are negative unless stated otherwise in the HPI. PENDING SALE TO [facility] Social History Social History Smoking status: Never smoker Gender identity (if verbalized by the patient): Female Exam 2 Narrative: General: Alert, awake, afebrile, in no acute distress. HEENT: PERRL, no rhinorrhea, no post nasal drip, oropharynx clear. Neck: Trachea midline, no JVD, no lymphadenopathy. Cardiovascular: Regular rate and rhythm, no murmurs, rubs or gallops, no peripheral edema. Respiratory: Clear to auscultation bilaterally, no tachypnea, no wheezing, no rhonchi, no rubs, no respiratory distress. Abdomen: Soft, nontender, nondistended, no rebound, no guarding, no peritoneal signs. Musculoskeletal: No joint swelling or deformity, normal muscle tone. Skin: No rashes or petechia, no signs of infection. Psychiatric: Alert and oriented, normal behavior and judgment for situation. Neurological: Alert and oriented to person, place, and time. Follows all commands. No focal deficits, speech is clear and fluent. Course Vital Signs Vital signs: Vital Signs Temperature 98.1 F 01/28/25 20:47 Pulse Rate 73 01/28/25 20:47 Respiratory Rate 18 01/28/25 20:47 Blood Pressure 135/90 01/28/25 20:47 Pulse Oximetry 99 01/28/25 20:47 Oxygen Delivery Room Air 01/28/25 20:47 Temperature 98.1 F 01/28/25 20:47 Pulse Rate 73 01/28/25 20:47 Respiratory Rate 18 01/28/25 20:47 Blood Pressure 135/90 01/28/25 20:47 Pulse Oximetry 99 01/28/25 20:47 Oxygen Delivery Room Air 01/28/25 20:47 MDM - Female Genitourinary MDM Narrative Medical decision making narrative: The patient was evaluated by myself in the emergency department. History is obtained from patient who is an independent historian and physical exam was performed. External medical records were reviewed at this time. IV was established and pertinent tests were ordered. Patient was administered a 1 L IV fluid bolus with normal saline. Laboratory results obtained revealing a sodium level of 116 otherwise unremarkable. Urinalysis unremarkable. At this time, patient was informed of these findings at bedside. Patient and her who is present at bedside do state that she does have a history of chronic hyponatremia but her sodium usually runs in the high 120s to 130. Has been did inform me at this time that the patient has been struggling with chronic dysphagia which has been worsening in the last few weeks in her diet for the last 3 weeks have consisted of mainly smoothies. Case was discussed with the on-call displayer Dr. Howard at [facility] and he recommended fluid restriction of 1200 mL and repeating a metabolic panel in the morning. Differential diagnosis considerations include bladder obstruction, urinary retention, acute viral syndrome, dehydration, electrolyte derangements. Comorbidities impacting this visit include history of urinary retention requiring bladder stimulator and chronic hyponatremia. I have evaluated and discussed social determinants of health with the patient that could potentially impact subsequent diagnosis and treatment plans. On repeat assessment of the patient, reevaluation revealed that the patient is doing well and is in no acute distress. Patient symptoms have improved since she arrived to our emergency department. Repeat vital signs were all reviewed and noted to be stable. Differential diagnosis and treatment plan were discussed with the patient at bedside. Patient agrees with discussion and after shared medical decision making agrees with discharge. All questions were answered to the patient's satisfaction. case was discussed with the on-call hospitalist Dr. Beaulieu at 0030 and he accepted admission. Lab Data 01/28/25 23:00 01/28/25 23:00 Labs: Lab Results 01/28/25 01/28/25 01/29/25 Range/Units 22:36 23:00 00:13 WBC 6.0 (4.5-10.0) K/mm3 RBC 4.36 (4.2-5.4) M/mm3 Hgb 12.4 (12.0-15.0) g/dL Hct 34.5 L (37.0-47.0) % MCV 79.1 L (80-100) fl MCH 28.4 (26-34) pg MCHC 35.9 (32-36) g/dl RDW 12.4 (11.5-14.5) % Plt Count 227 (150-375) k/mm3 MPV 9.1 (7.4-10.4) fl Immature Gran % (Auto) 0.2 (0-0.5) % Neut % (Auto) 71.4 (45.5-73.1) % Lymph % (Auto) 15.8 L (18.3-44.2) % [place] % (Auto) 11.6 H (2.6-8.5) % Eos % (Auto) 0.8 (0-4.4) % Baso % (Auto) 0.2 (0.2-1.2) % Lymph # (Auto) 0.95 (0.9-3.2) K/mm3 [place] # (Auto) 0.7 H (0.1-0.6) K/mm3 Eos # (Auto) 0.1 (0-0.3) K/mm3 Baso # (Auto) 0.0 (0.0-0.1) K/mm3 Abs Immat Gran (auto) 0.01 (0.00-0.031) K/mm3 Absolute Neuts (auto) 4.3 (1.3-6.7) K/mm3 Absolute Nucleated RBC 0.000 (0.0-0.012) K/mm3 Nucleated RBC % 0.0 (0.0-0.2) % Sodium 116 L* (137-145) mmol/L Potassium 3.5 (3.4-5.0) mmol/L Chloride 80 L (98-107) mmol/L Carbon Dioxide 28 (22-30) mmol/L Anion Gap 8 (4-12) mmol/L BUN 7 (7-17) mg/dL Creatinine 0.69 L (0.7-1.0) mg/dL Estim Creat Clear Calc 78 ml/min Estimated GFR > 60 (59 - ) Glucose 110 (65-110) mg/dL Serum Osmolality Pending Calcium 9.4 (8.4-10.2) mg/dL Magnesium 1.7 (1.6-2.3) mg/dL Total Bilirubin 0.5 (0.2-1.3) mg/dL AST 36 (14-36) U/L ALT 30 (6-35) U/L Alkaline Phosphatase 90 (38-126) U/L Total Protein 7.1 (6.3-8.2) g/dL Albumin 4.3 (3.5-5.1) g/dL TSH (Reflex) 1.680 (0.465-4.68) uIU/mL Urine Color Yellow (Yellow) Urine Appearance Clear (Clear) Urine pH 7.0 (5.0-9.0) Ur Specific [place] 1.004 (1.001-1.035) Urine Protein Negative (Negative) mg/dL Urine Glucose (UA) Negative (Negative) mg/dL Urine Ketones Negative (Negative) mg/dL Ur Blood (Man) Negative (Negative) Urine Nitrate Negative (Negative) Urine Bilirubin Negative (Negative) Urine Urobilinogen 0.2 (<2.0) mg/dL Leukocyte Esterase Rfl Negative (Negative) YESSENIA/UL Urine Osmolality Pending Ur Random Sodium 20 meq/L Ur Random Urea 120 MG/DL Urine Creatinine 23.4 mg/dL Salicylates < 1.0 L (2-20) mg/dL Urine Opiates Screen Negative (Negative) Urine Methadone Screen Negative (Negative) Acetaminophen < 10 L (10-30) ug/mL Ur Barbiturates Screen Negative (Negative) Ur Phencyclidine Scrn Negative (Negative) Ur Amphetamine Screen Negative (Negative) U Benzodiazepines Scrn Negative (Negative) Urine Cocaine Screen Negative (Negative) U Cannabinoids Screen Negative (Negative) Ethyl Alcohol < 10 (<10) mg/dL Discharge Plan Discharge Clinical Impression: Urinary retention, Acute hyponatremia Patient Disposition: Still a Patient Condition: Improved Patient Language: Citizen Of [place] Prescriptions: No Action buspirone 10 mg tablet 10 mg BID clonazepam 0.5 mg tablet 0.5 mg BID losartan 50 mg tablet lamotrigine 100 mg tablet aripiprazole 2 mg tablet doxycycline hyclate 100 mg tablet 200 mg PO DAILY 1 Days Qty: 2 0RF Follow-up/Referrals: Bright,Lei Barnett DO [Primary Care Provider, Unknown] Time of Disposition: 00:23
--- NOTE | 2025-01-29 02:06 | ADMGEN ---
This patient, Lyubov Steinberg, was admitted to IMU Room 232-01 on 01/29/25 at 0201. Patient/family oriented to hospital policies and general routines including ID bracelet, bed and alarms, visiting hours, pain management, procedures, bathroom and other care routines, personal items, smoking policy, room service/diet, and visiting hours. Information on how to activate the Rapid Response Team has been discussed. Patient/Family are encouraged to report perceived risks to care and to ask questions if they do not understand what they are told or what they should do.
[2025-01-29 02:53] LABS: Anion Gap 3 mmol/L (4-12); Blood Urea Nitrogen 6 mg/dL (7-17); Calcium 9.0 mg/dL (8.4-10.2); Carbon Dioxide 28 mmol/L (22-30); Chloride 85 mmol/L (98-107); Estimated CRCL calculation 84 ml/min; Estimated Glomerular Filt Rate > 60; Glucose 101 mg/dL (65-110); Potassium 3.5 mmol/L (3.4-5.0); Sodium 116 mmol/L (137-145)
--- NOTE | 2025-01-29 03:07 | PM.IMHP ---
H&P: HPI History of Present Illness Date/Time: 01/29/25 03:07 Chief Complaint: Urinary retention Narrative: A 59-year-old female with PMH severe anxiety and panic disorder per self report, chronic hyponatremia baseline around 130, chronic urinary retention with a bladder stimulator, chronic dysphagia status post esophageal dilatation at [facility] in 12/2024, hypertension who presents to [facility] ER on 01/28/2025 complaining of acute urinary retention. She moved to the local area in 09/2024, many years ago she had a bladder stimulator placed by urologist and she has been able to urinate and has not had issues since then. For about a month now her urinary retention has worsened and over the past 24 hours she has not been able to urinate. She felt as if her bladder had increased pressure. She has an anxious affect reports she thinks her severe anxiety is causing her urinary retention. Of note, she had an esophageal dilatation at [facility] 1 month prior with the GI doctor for chronic dysphagia and she reports since then her dysphagia has not improved, she contacted the GI doctor and states he did not seem to be concerned. However, her dysphagia is reportedly so bad that for the past week she has only been drinking fruit smoothies. She she feels as if she is slightly dehydrated. She has no other complaints. In the ER her blood pressure 135/90, saturating well on room air, heart rate 73, afebrile. A sodium level low at 116, chloride 80, serum creatinine 0.69, magnesium 1.7, TSH 1.680, urinalysis unremarkable, random sodium 20, random urea 120, random urine creatinine 23.4, urine drug screen, Tylenol, salicylate levels all within normal limits. She was given 1 L of normal saline. Nephrology was contacted and recommended no further fluids but fluid restriction. Review of Systems Review of Systems: All systems reviewed & are unremarkable except as noted in HPI and below (Subjective) [facility] Family History Family History Mother Uterine cancer Father Lung cancer Sibling Diabetes mellitus Social History Social History Smoking status: Never smoker Alcohol intake: never Substance use: never Substance use type: does not use Lack of Transportation: No Lack of Food: Never True Current Housing: I Have Housing Concerned About Future Housing: No Difficulty Paying Gas/Electric Bills: No Difficulty Paying for Meds: No Currently Unemployed: No Education: Bachelor's Degree Difficulty w/ Childcare or Family Care: No Gender identity (if verbalized by the patient): Female Spiritual care concerns: No Meds Home Medications and Allergies Home Medications ?Medication ?Instructions ?Recorded ?Confirmed ?Type buspirone 10 mg tablet 30 mg PO BID 06/25/19 01/29/25 History clonazepam 0.5 mg tablet 0.5 mg PO .COMPLEX 06/25/19 01/29/25 History losartan 50 mg tablet 100 mg PO QAM 09/21/24 01/29/25 History carboxymethylcellulose sodium 0.5 2 drp EACH EYE Q4-6H PRN dry eye(s) 01/29/25 01/29/25 History % eye drops (Refresh Tears) cariprazine 1.5 mg capsule 1.5 mg PO QAM 01/29/25 01/29/25 History (Vraylar) clomipramine 25 mg capsule 25 mg PO HS 01/29/25 01/29/25 History clonazepam 1 mg tablet 1 mg PO QAM 01/29/25 01/29/25 History hydrochlorothiazide 10 mg/mL oral 25 mg PO QAM 01/29/25 01/29/25 History suspension (Inzirqo) hydroxyzine HCl 25 mg tablet 25 mg PO DAILY PRN anxiety 01/29/25 01/29/25 History metoprolol tartrate 10 mg/mL oral 25 mg PO TID 01/29/25 01/29/25 History solution (Lopressor) mirtazapine 15 mg disintegrating 15 mg translingual HS 01/29/25 01/29/25 History tablet omeprazole 20 mg delayed 20 mg PO BID 01/29/25 01/29/25 History release,disintegrating tablet Allergies Allergy/AdvReac Type Severity Reaction Status Date / Time tramadol Allergy Unknown RASH Verified 01/29/25 02:12 cephalexin (From Keflex) AdvReac Mild Anxiety Verified 01/29/25 02:12 Vital Signs Vital Signs - 24 hr 01/28/25 20:47 01/28/25 22:00 01/28/25 23:00 Temperature 98.1 F Pulse Rate 73 90 94 Respiratory Rate 18 17 17 Blood Pressure 135/90 101/68 117/68 Pulse Oximetry 99 94 96 Oxygen Delivery Room Air 01/29/25 00:00 01/29/25 01:00 01/29/25 02:17 Temperature 98.2 F Pulse Rate 97 97 70 Respiratory Rate 15 16 22 H Blood Pressure 117/79 115/79 142/80 H Pulse Oximetry 99 99 99 Oxygen Delivery Exam Const: General: comfortable and no acute distress Other: A&O x3, anxious affect HENMT: Mouth: Yes moist mucous membranes Eyes: Pupils: Equal, round and reactive pupils present Neck: Neck: supple Resp: Effort & Inspection: normal respiratory effort Auscultation: clear to auscultation bilaterally Cardio: Rate: regular rate Rhythm: regular rhythm GI: Inspection: non-distended GI Palp: Yes Soft to palpation : General: Yes bladder normal to palpation Neuro: Motor exam (neuro): 5/5 motor strength present throughout Extrem: General: edema (Trace pitting edema bilateral lower extremities below the knees) H&P: Results Labs Labs: Short CBC 01/28/25 Range/Units 23:00 WBC 6.0 (4.5-10.0) K/mm3 Hgb 12.4 (12.0-15.0) g/dL Hct 34.5 L (37.0-47.0) % Plt Count 227 (150-375) k/mm3 [facility] 01/28/25 01/29/25 23:00 02:30 Sodium 116 L* 116 L* Potassium 3.5 3.5 Chloride 80 L 85 L Carbon Dioxide 28 28 BUN 7 6 L Creatinine 0.69 L 0.63 L Glucose 110 101 Calcium 9.4 9.0 Liver Function 01/28/25 Range/Units 23:00 Total Bilirubin 0.5 (0.2-1.3) mg/dL AST 36 (14-36) U/L ALT 30 (6-35) U/L Alkaline Phosphatase 90 (38-126) U/L Albumin 4.3 (3.5-5.1) g/dL Urine 01/28/25 Range/Units 22:36 Urine Color Yellow (Yellow) Urine Appearance Clear (Clear) Urine pH 7.0 (5.0-9.0) Ur Specific [place] 1.004 (1.001-1.035) Urine Protein Negative (Negative) mg/dL Urine Glucose (UA) Negative (Negative) mg/dL Assessment and Plan Assessment and plan (1) Acute hyponatremia: Code(s): E87.1 - Hypo-osmolality and hyponatremia Status: Acute (2) Urinary retention: Code(s): R33.9 - Retention of urine, unspecified Status: Acute Plan A 59-year-old female with PMH severe anxiety and panic disorder per self report, chronic hyponatremia baseline around 130, chronic urinary retention with a bladder stimulator, chronic dysphagia status post esophageal dilatation at [facility] in 12/2024, hypertension who presents to [facility] ER on 01/28/2025 complaining of acute urinary retention. She moved to the local area in 09/2024, many years ago she had a bladder stimulator placed by urologist and she has been able to urinate and has not had issues since then. For about a month now her urinary retention has worsened and over the past 24 hours she has not been able to urinate. She felt as if her bladder had increased pressure. She has an anxious affect reports she thinks her severe anxiety is causing her urinary retention. Of note, she had an esophageal dilatation at [facility] 1 month prior with the GI doctor for chronic dysphagia and she reports since then her dysphagia has not improved, she contacted the GI doctor and states he did not seem to be concerned. However, her dysphagia is reportedly so bad that for the past week she has only been drinking fruit smoothies. She she feels as if she is slightly dehydrated. She has no other complaints. In the ER her blood pressure 135/90, saturating well on room air, heart rate 73, afebrile. A sodium level low at 116, chloride 80, serum creatinine 0.69, magnesium 1.7, TSH 1.680, urinalysis unremarkable, random sodium 20, random urea 120, random urine creatinine 23.4, urine drug screen, Tylenol, salicylate levels all within normal limits. She was given 1 L of normal saline. Nephrology was contacted and recommended no further fluids but fluid restriction. ----- Repeat sodium same at 116. Continue fluid restriction and repeat BMP at 6:30 a.m. in 4 hours. She was never told why she has chronic hyponatremia. This is acute on chronic. She had a Carey catheter placed large urine output. Continued resolution of bladder distension may also help improve her hyponatremia. Continue to appreciate Nephrology recommendations. She is on hydrochlorothiazide, this could be the cause of her chronic hyponatremia, hold that for now. Urine and serum osmolality are pending. Urine sodium is 20. Consult speech therapy for dysphagia. This appears to be worsening. With her history of esophageal stricture per her report and required dilatation, consult GI. She is very worried about swallowing safely. Will have to hold all of her p.o. medications. Change omeprazole p.o. to Protonix 40 mg IV q.a.m.. Monitor blood pressure. Hydralazine p.r.n.. She takes clonazepam at home 1 mg in the morning and 0.5 at night as needed. There is an Ativan shortage so the alternative remains Valium 5 mg IV q.a.m. p.r.n.. We discussed the associated risk of IV anxiety medications and patient is accepting of the risk and says she cannot go without anxiety medications. She is breathing comfortably,, saturating well on room air, does not have any lung conditions, does not have SOFIA. Carey catheter remains. Monitor urine output. Patient wishes to be full code. SCDs. Saline lock IV. Fluid restriction. Lifelong nonsmoker, denies illicit drug use or alcohol use. Hospitalist [facility] Advance Care Plan I have confirmed that the patient's Advanced Care Plan is present, code status is documented, or surrogate decision maker is listed in patient medical record.: Yes Medication Reconciliation I have utilized all available resources to obtain, update and review the patients current medications (includes all prescriptions, OTC, herbals, cannabis, and nutritional supplements).: Yes
[2025-01-29] MEDS: diazePAM INJ (*CRX) 10 MG/2 ML SYRINGE 2.5 MG IV PUSH (04:29)
--- NOTE | 2025-01-29 04:56 | PC.NURSE ---
Pt moved to ICU for suicide precautions at 0456. This RN received report from Humaira Ureña RN
--- NOTE | 2025-01-29 04:57 | PC.NURSE ---
This patient, Lyubov Steinberg, was transferred to ICU-5 on 01/29/25 at 0450 as an IMU OF for suicide precautions. Personal belongings sent with patient. Report given to CHENTE Núñez. Appropriate documentation sent with patient.
[2025-01-29 06:52] LABS: Anion Gap 4 mmol/L (4-12); Blood Urea Nitrogen 6 mg/dL (7-17); Calcium 9.0 mg/dL (8.4-10.2); Carbon Dioxide 29 mmol/L (22-30); Chloride 87 mmol/L (98-107); Estimated CRCL calculation 80 ml/min; Estimated Glomerular Filt Rate > 60; Glucose 98 mg/dL (65-110); Potassium 3.6 mmol/L (3.4-5.0); Sodium 120 mmol/L (137-145)
--- NOTE | 2025-01-29 07:26 | PC.NURSE ---
01/29/25 at 0358-Pt's spouse, Dwaine Artolai called and updated that patient will be transferring to the ICU as an IMU OF for suicide precautions/closer observation. Pt's spouse verbalizes understanding.
[2025-01-29] MEDS: clonazePAM (*CRX) 0.5 MG TABLET 1 MG PO (09:16)
[2025-01-29] MEDS: LOSARTAN POTASSIUM 50 MG TABLET 100 MG PO (09:17)
[2025-01-29] MEDS: METOPROLOL TARTRATE 25 MG TABLET PO ×3 (09:17→16:57)
[2025-01-29] MEDS: PANTOPRAZOLE SODIUM IV 40 MG VIAL IV PUSH (09:18)
--- NOTE | 2025-01-29 09:55 | P.CONNP_ITS ---
Assessment and Plan Assessment and plan (1) Hyponatremia: Code(s): E87.1 - Hypo-osmolality and hyponatremia Status: Acute Assessment and Plan: * acute on chronic * labs ~ 1 month ago (December 2024) demostrated a sodium of 136mmol/L * review of labs demonstrate sodium runs around 130 - 136mmol/L as far back as 2021 (with occassional readings below 130) * multiple risk factors: * urinary retention * HCTZ use * previous/current psychiatric medications * excessive free water intake (due to dysphagia issues) * PPI use * prerenal factors (diminished oral intake due to dysphagia) * other(?) * hold HCTZ for now * start low dose salt tabs (assuming she can tolerate given her dysphagia) * fluid restriction * check cortisol, SPEP, UPEP, kappa/lamda ratio and follow-up on serum/urine osmolality * goal of therapy is a rate of change in sodium of 6 - 8mmol/L in 24 hours * follow trend of repeat sodiums (2) Urinary retention: Code(s): R33.9 - Retention of urine, unspecified Status: Acute Assessment and Plan: * reported chronic history * s/p bladder stimulator placed by urologist several years ago.. * worsening urinary retention for about a month with worsening in the past 24 hours prior to admission * s/p chavarria catheter placement in ER * Urology consulted (3) Hypertension: Code(s): I10 - Essential (primary) hypertension Status: Acute Assessment and Plan: * reasonable control * holding HCTZ due to #1 * follow trend of hemodynamics (4) Dysphagia: Code(s): R13.10 - Dysphagia, unspecified Status: Acute Assessment and Plan: * also somewhat a chronic issue * status post esophageal dilatation at [facility] in 12/2024 without improvement * plan Speech Therapy evaluation * advance diet as tolerated I will continue to follow the patient with you while she remains hospitalized and make further recommendations as deemed necessary. Thank you for allowing me to participate in the care of this patient. L History of Present Illness Reason for Consult Consult date: 01/29/25 Reason for consult: hyponatremia (acute on chronic) Chief Complaint Chief complaint: Hyponatremia History of Present Illness Narrative: The patient is a 59-year-old female with a past medical history as outlined below who presented to [facility] Emergency Room with complaints of urinary retention. According to the patient, several years ago she had a bladder stimulator placed by her urologist due to her recurrent issues with urinary retention. However, in the last month, she has noted that she has had increasing difficulty with urination in association with retention that seemed to worsen in the last 24 hours prior to her presentation to the emergency room. By the time of her presentation in the ER, the patient stated that she had been unable to urinate at all. She reported increased bladder pressure and unfortunately this symptom seems to have aggravated her baseline anxiety as well. Further complicating matter is the fact that she has has issues and problems with chronic dysphagia and despite an EGD and reported EGD dilation, this did not really resolve her symptoms. An effort to stay hydrated, she has been drinking a significant amount of fluids in the form of some fruit smoothies as well as free water for nutrition as well as to take her medications. In spite of this, she still feels that she is somewhat dehydrated. Given these constellation of symptoms as mentioned, she presented to the emergency room for further assessment. Workup and evaluation emergency room demonstrated the patient to be hemodynamically stable and afebrile. Routine blood tests were significant for a sodium of 116, chloride of 80, normal renal function, and no other critical electrolyte abnormalities. Her TSH was normal and her urinalysis was unremarkable and her urine drug screen as well as serum drug screen was negative. Given her ongoing complaints of urinary retention, a Chavarria catheter was placed and a significant amount of urine resulted with this intervention. Given her hyponatremia and her issues with urinary retention, she was admitted to the hospital for further evaluation and therapy. Since her admission, her sodium level has improved somewhat although she did receive a L of normal saline in the emergency room and was initiated on a fluid restriction on admission. Urology has been consulted with regard to her issues of urinary retention and the known history of a bladder stimulator. Renal consultation was requested due to her acute on chronic hyponatremia. From my discussion with the patient as well as her at bedside, she does have a history of hyponatremia in the past although usually runs around in the 130s range. He reports there was 1 time a few years ago where went below 130 and he will recently recalls this is because anesthesiology refused to do her orthopedic procedure because of this low sodium value. It was presumed that her low sodium level was due to her psychiatric medications that she was on the time as well as her increased free water intake and with adjustment of these parameters for sodium level seemed to normalize if not stabilized. She was recently at [facility] last month (December 2024) for an EGD given her issues with dysphagia and laboratory test done at that time showed a serum sodium level of 136 millimoles per L. in spite of her hyponatremia, she does not appear to be symptomatic from it. Currently, at the time my evaluation, she appears to be in no acute distress. Review of Systems 2 Review of Systems: As per HPI. [facility] Past Medical History Medical History (Updated 01/29/25 @ 22:57 by Darío Quintanilla MD) OCD (obsessive compulsive disorder) Anxiety and depression Breast cancer Hypertension Dysphagia Anemia Hyponatremia Osteoarthritis Urinary retention DAVID (generalized anxiety disorder) GERD (gastroesophageal reflux disease) Family History Family History Mother Uterine cancer Father Lung cancer Sibling Diabetes mellitus Social History Social History Smoking status: Never smoker Alcohol intake: never Substance use: never Substance use type: does not use Lack of Transportation: No Lack of Food: Never True Current Housing: I Have Housing Concerned About Future Housing: No Difficulty Paying Gas/Electric Bills: No Difficulty Paying for Meds: No Currently Unemployed: No Education: Bachelor's Degree Difficulty w/ Childcare or Family Care: No Gender identity (if verbalized by the patient): Female Spiritual care concerns: No Meds Home Medications and Allergies Home Medications ?Medication ?Instructions ?Recorded ?Confirmed ?Type buspirone 10 mg tablet 30 mg PO BID 06/25/19 History clonazepam 0.5 mg tablet 0.5 mg PO .COMPLEX 06/25/19 01/29/25 History losartan 50 mg tablet 100 mg PO QAM 09/21/2401/29 History carboxymethylcellulose sodium 0.5 2 drp EACH EYE Q4-6H PRN dry eye(s) 01/29/25 01/29/25 History % eye drops (Refresh Tears) cariprazine 1.5 mg capsule 1.5 mg PO QAM 01/29/25 09/01/15 History (Vraylar) clomipramine 25 mg capsule 25 mg PO HS 01/29/25 History clonazepam 1 mg tablet 1 mg PO QAM 01/29/25 5 History hydrochlorothiazide 10 mg/mL oral 25 mg PO QAM 5 01/29/25 History suspension (Inzirqo) hydroxyzine HCl 25 mg tablet 25 mg PO DAILY PRN anxiet y 01/29/25 01/29/25 History metoprolol tartrate 10 mg/mL oral 25 mg PO TID 5 01/29/25 History solution (Lopressor) mirtazapine 15 mg disintegrating 15 mg translingual HS 01/29/25 01/29/25 History tablet omeprazole 20 mg delayed 20 mg PO BID 01/29/25 History release,disintegrating tablet tolvaptan 15 mg tablet 15 mg PO DAILY #5 tabs 02/01 Rx Allergies Allergy/AdvReac Type Severity Reaction Status Date / Time tramadol Allergy Unknown RASH Verified 01/29/25 02:12 cephalexin (From Keflex) AdvReac Mild Anxiety Verified 01/29/25 02:12 Vital Signs Vital Signs Temp Pulse Resp BP Pulse Ox O2 Del Method 01/29/25 09:17 85 01/29/25 08:00 85 01/29/25 08:00 Room Air 01/29/25 08:00 98.0 F 71 21 H 134/87 96 01/29/25 06:00 65 01/29/25 05:12 64 23 H 121/72 98 01/29/25 04:32 64 23 H 97 Room Air 01/29/25 04:00 98.0 F 64 23 H 119/65 97 01/29/25 02:17 98.2 F 70 22 H 142/80 H 99 01/29/25 02:15 70 22 H 99 Room Air 01/29/25 01:00 97 16 115/79 99 01/29/25 00:00 97 15 117/79 99 01/28/25 23:00 94 17 117/68 96 01/28/25 22:00 90 17 101/68 94 01/28/25 20:47 98.1 F 73 18 135/90 99 Room Air Exam 2 Narrative: GENERAL APPEARANCE: well developed well nourished female in no acute distress HEENT: normocephalic, atraumatic, normal conjunctiva and sclera, nares patient NECK: no lymphadenopathy, thyromegaly, or JVD MOUTH: normal lips, teeth, and gums CARDIOVASCULAR: RRR, normal S1 and S2, no rub RESPIRATORY: clear to auscultation bilaterally ABDOMEN: soft, nontender, nondistended, positive bowel sounds present EXTREMITIES: no evidence of cyanosis, clubbing, trace edema NEUROLOGICAL: alert and oriented x 3; CN II - XII intact bilaterally; no focal deficits noted Results Lab Results 01/30/25 04:48 02/01/25 04:12 Lab results: 01/28/25 01/29/25 01/29/25 23:00 02:30 06:23 Sodium 116 L* 116 L* 120 L Potassium 3.6 Chloride 87 L Carbon Dioxide 29 BUN 6 L Creatinine 0.66 L Estimated GFR > 60 Glucose 98 Calcium 9.0
--- NOTE | 2025-01-29 10:53 | WPDCNPSYCH ---
Assessment and Plan Assessment and plan (1) DAVID (generalized anxiety disorder): Code(s): F41.1 - Generalized anxiety disorder Status: Acute Assessment and Plan: DAVID-7 score: 18 plan - continue Buspar 30 mg BID - hold hydroxyzine 25 mg PRN while in hospital, can continue at discharge - hold Clomipramine 25 daily while in the hospital, follow up with Corazon primary psych provider on 02/05/2025 before resuming. - Continue Clonazepam 1 mg daily 0.5 mg in the evening 0.5 mg HS- prescribed by PCP - continue Mirtazapine 15 mg HS - d/c Vraylar 1.5 mg daily - Start quetiapine 50 mg HS. - follow up with primary psychiatric care provider, scheduled with 02/05/2025. (2) MDD (major depressive disorder), recurrent episode, severe: Qualifiers: Psychotic features: without psychotic features Qualified Code(s): F33.2 - Major depressive disorder, recurrent severe without psychotic features Code(s): F33.2 - Major depressive disorder, recurrent severe without psychotic features Status: Acute Assessment and Plan: ramirez depression inventory score: 30 [place]-suicide severity rating sclae: 1) have you wished you were or wished you could go to sleep and not wake up? yes 2) have you actually had any thoughts of killing yourself? yes 3) have youbeen thinking about how you might do this? No 4) have you had these thoughts and had some intention of acting on them? No 5) Have you started to work out or worked out the details of how to kill yourself? No 6) Have ou ever done anything, started to do anything, or prepared to do anything to end your life? No. Plan called patient's primary psychiatric care provider, Corazon and discussed treatment plan at [phone] with release of information of file. Spoke with patient and , Dwaine at bedside. Plan: d/c suicide precautions - continue Buspar 30 mg BID - hold hydroxyzine 25 mg PRN while in hospital, can continue at discharge - hold Clomipramine 25 daily while in the hospital, follow up with Corazon primary psych provider on 02/05/2025 before resuming. - Continue Clonazepam 1 mg daily 0.5 mg in the evening 0.5 mg HS- prescribed by PCP - continue Mirtazapine 15 mg HS - d/c Vraylar 1.5 mg daily - Start quetiapine 50 mg HS. - follow up with primary psychiatric care provider, scheduled with 02/05/2025. HPI Data of Consult Date/Time: 01/29/25 10:53 Requesting Physician: Alexandra Beaulieu MD Primary Care Provider: Lei Novoa, DO Consult Narrative Narrative: Lyubov Steinberg is a 59 year old female with a history of depression, OCD, and anxiety, presents with persistent depressed mood, feelings of hopelessness, anhedonia, constant irritability, difficulty making decisions, decreased appetite, fatigue, decreased libido, and thoughts of self-harm without intent to act. History of Present Illness: Lyubov reports feeling sad or blue all the time and unable to snap out of it. She describes feeling hopeless about the future and that she has accomplished very little that is worthwhile. She no longer enjoys things as she used to and feels bad a good part of the time. Lyubov reports being disappointed in herself and having thoughts of self-harm, though she states she would not act on them due to protective factors including her . She notes difficulty crying despite wanting to and feeling irritated all the time. Lyubov has been putting off making decisions and feels that permanent changes in her appearance make her look unattractive. She describes having to push herself very hard to do anything and waking up more tired in the morning than she used to. Lyubov reports feeling tired from doing almost anything and having a much worse appetite than before. The patient expresses concern about her feelings, stating it is hard to think of much else. She reports being less interested in sex than she used to be. Lyubov has been taking multiple medications for her mental health conditions, including BuSpar, hydroxyzine, clomipramine, clonazepam, mirtazapine, and Vraylar. She reports that the clomipramine is the only medication that has worked well for her OCD in the past. Lyubov has been on Vraylar 1.5 mg for about a month but has not noticed any significant changes. Lyubov's is described as very involved in her care, with a safety plan in place. He takes care of everything and keeps all her medications locked up. The patient has an upcoming follow-up appointment with her psychiatrist on the of this month. Medical and Family History: Lyubov has a medical history of Obsessive-Compulsive Disorder, Generalized Anxiety Disorder, Major Depressive Disorder, and active suicidal ideation with longstanding plan to take medications. Social History: Lyubov lives with her . Her is very involved in her care and keeps all medications locked up. She has a safety plan in place. Review of Systems Psychiatric: Psychiatric: Reports abnormal sleep pattern (difficulty sleeping), Reports anxiety, Reports change in libido (i am less interested in sex than i used to be), Reports depression, Reports irritability, Reports anhedonia and Reports suicidal ideation (chronic thoughts of suicide without intent. safety plan in place) [facility] Past Medical History Medical History (Updated 01/29/25 @ 14:42 by Alexandra Mo APRN) OCD (obsessive compulsive disorder) Anxiety and depression Breast cancer Hypertension Dysphagia Anemia Hyponatremia Osteoarthritis GERD (gastroesophageal reflux disease) DAVID (generalized anxiety disorder) Urinary retention Family History Family History Mother Uterine cancer Father Lung cancer Sibling Diabetes mellitus Social History Social History Smoking status: Never smoker Alcohol intake: never Substance use: never Substance use type: does not use Lack of Transportation: No Lack of Food: Never True Current Housing: I Have Housing Concerned About Future Housing: No Difficulty Paying Gas/Electric Bills: No Difficulty Paying for Meds: No Currently Unemployed: No Education: Bachelor's Degree Difficulty w/ Childcare or Family Care: No Gender identity (if verbalized by the patient): Female Spiritual care concerns: No Meds Home Medications and Allergies Home Medications ?Medication ?Instructions ?Recorded ?Confirmed ?Type buspirone 10 mg tablet 30 mg PO BID 06/25/19 01/29/25 History clonazepam 0.5 mg tablet 0.5 mg PO .COMPLEX 06/25/19 01/29/25 History losartan 50 mg tablet 100 mg PO QAM 09/21/24 01/29/25 History carboxymethylcellulose sodium 0.5 2 drp EACH EYE Q4-6H PRN dry eye(s) 01/29/25 01/29/25 History % eye drops (Refresh Tears) cariprazine 1.5 mg capsule 1.5 mg PO QAM 01/29/25 01/29/25 History (Vraylar) clomipramine 25 mg capsule 25 mg PO HS 01/29/25 01/29/25 History clonazepam 1 mg tablet 1 mg PO QAM 01/29/25 01/29/25 History hydrochlorothiazide 10 mg/mL oral 25 mg PO QAM 01/29/25 01/29/25 History suspension (Inzirqo) hydroxyzine HCl 25 mg tablet 25 mg PO DAILY PRN anxiety 01/29/25 01/29/25 History metoprolol tartrate 10 mg/mL oral 25 mg PO TID 01/29/25 01/29/25 History solution (Lopressor) mirtazapine 15 mg disintegrating 15 mg translingual HS 01/29/25 01/29/25 History tablet omeprazole 20 mg delayed 20 mg PO BID 01/29/25 01/29/25 History release,disintegrating tablet Allergies Allergy/AdvReac Type Severity Reaction Status Date / Time tramadol Allergy Unknown RASH Verified 01/29/25 02:12 cephalexin (From Keflex) AdvReac Mild Anxiety Verified 01/29/25 02:12 Vital Signs Vital Signs - 24 hr 01/28/25 20:47 01/28/25 22:00 01/28/25 23:00 Temperature 98.1 F Pulse Rate 73 90 94 Respiratory Rate 18 17 17 Blood Pressure 135/90 101/68 117/68 Pulse Oximetry 99 94 96 Oxygen Delivery Room Air 01/29/25 00:00 01/29/25 01:00 01/29/25 02:15 Temperature Pulse Rate 97 97 70 Respiratory Rate 15 16 22 H Blood Pressure 117/79 115/79 Pulse Oximetry 99 99 99 Oxygen Delivery Room Air 01/29/25 02:17 01/29/25 04:00 01/29/25 04:32 Temperature 98.2 F 98.0 F Pulse Rate 70 64 64 Respiratory Rate 22 H 23 H 23 H Blood Pressure 142/80 H 119/65 Pulse Oximetry 99 97 97 Oxygen Delivery Room Air 01/29/25 05:12 01/29/25 06:00 01/29/25 08:00 Temperature 98.0 F Pulse Rate 64 65 71 Respiratory Rate 23 H 21 H Blood Pressure 121/72 134/87 Pulse Oximetry 98 96 Oxygen Delivery 01/29/25 08:00 01/29/25 08:00 01/29/25 09:17 Temperature Pulse Rate 85 85 Respiratory Rate Blood Pressure Pulse Oximetry Oxygen Delivery Room Air Exam Const: General: cooperative Psych: Appearance: well kempt Speech and movement: Normal speech and movement present and Clear speech present Affect: normal affect Attitude: cooperative Thought process: Normal thought process present Thought content: Yes Suicidality present (baseline suicidal thoughts without intent (long standing)) Insight: Good insight present (Psych) Judgement: Good judgement present (Psych) Results Labs 01/28/25 23:00 01/29/25 15:45 Labs: Short CBC 01/28/25 Range/Units 23:00 WBC 6.0 (4.5-10.0) K/mm3 Hgb 12.4 (12.0-15.0) g/dL Hct 34.5 L (37.0-47.0) % Plt Count 227 (150-375) k/mm3 BMP 01/28/25 01/29/25 01/29/25 23:00 02:30 06:23 Sodium 116 L* 116 L* 120 L Potassium 3.5 3.5 3.6 Chloride 80 L 85 L 87 L Carbon Dioxide 28 28 29 BUN 7 6 L 6 L Creatinine 0.69 L 0.63 L 0.66 L Glucose 110 101 98 Calcium 9.4 9.0 9.0 Liver Function 01/28/25 Range/Units 23:00 Total Bilirubin 0.5 (0.2-1.3) mg/dL AST 36 (14-36) U/L ALT 30 (6-35) U/L Alkaline Phosphatase 90 (38-126) U/L Albumin 4.3 (3.5-5.1) g/dL Urine 01/28/25 Range/Units 22:36 Urine Color Yellow (Yellow) Urine Appearance Clear (Clear) Urine pH 7.0 (5.0-9.0) Ur Specific [place] 1.004 (1.001-1.035) Urine Protein Negative (Negative) mg/dL Urine Glucose (UA) Negative (Negative) mg/dL
--- NOTE | 2025-01-29 11:27 | PCSTNOTE ---
Please refer to the Bedside Swallow Evaluation in the EMR. Please note, silent aspiration cannot be ruled out at bedside.
[2025-01-29 12:18] LABS: Sodium 119 mmol/L (137-145)
--- NOTE | 2025-01-29 13:06 | P.PNIM_ITS ---
Progress Note: A&P Assessment and Plan (1) Acute hyponatremia: Code(s): E87.1 - Hypo-osmolality and hyponatremia Status: Acute (2) Urinary retention: Code(s): R33.9 - Retention of urine, unspecified Status: Acute Plan A 59-year-old female with PMH severe anxiety and panic disorder per self report, chronic hyponatremia baseline around 130, chronic urinary retention with a bladder stimulator, chronic dysphagia status post esophageal dilatation at [facility] in 12/2024, hypertension who presents to [facility] ER on 01/28/2025 complaining of acute urinary retention. [place] moved to the local area in 09/[place]24, many years ago she had a bladder stimulator placed by urologist and she has been able to urinate and has not had issues since then. For about a month now her urinary retention has worsened and over the past 24 hours she has not been able to urinate. She felt as if her bladder had increased pressure. She has an anxious affect reports she thinks her severe anxiety is causing her urinary retention. Of note, she had an esophageal dilatation at [facility] 1 month prior with the GI doctor for chronic dysphagia and she reports since then her dysphagia has not improved, she contacted the GI doctor and states he did not seem to be concerned. However, her dysphagia is reportedly so bad that for the past week she has only been drinking fruit smoothies. She she feels as if she is slightly dehydrated. She has no other complaints. Hyponatremia Na 119 from 116 Continue holding HCT continue salt tablets and fluid restriction Nephrology following Suicidal ideation adn chronic depression Patient noted no execution plan Psych consulted Continue home meds meanwhile Dysphagia Noted worsening symptoms ST following GI consulted Urinary retention Patient has bladder stimulator Tamsulosin and URology consulted Continue Carey for DVT prophylaxis on Sq lovenox Subjective Date/time seen: 01/29/25 13:06 Interval history: Comfortable at bedside Review of Systems Review of Systems: All systems reviewed & are unremarkable except as noted in HPI and below (Subjective) Exam Const: General: comfortable and no acute distress Other: A&O x3, anxious affect HENMT: Mouth: Yes moist mucous membranes Eyes: Pupils: Equal, round and reactive pupils present Neck: Neck: supple Resp: Effort & Inspection: normal respiratory effort Auscultation: clear to auscultation bilaterally Cardio: Rate: regular rate Rhythm: regular rhythm GI: Inspection: non-distended : General: Yes bladder normal to palpation Bimanual exam- vagina & uterus: bladder normal to palpation Neuro: Cranial nerves: Yes Equal, round and reactive pupils present Motor exam (neuro): 5/5 motor strength present throughout Extrem: General: edema (Trace pitting edema bilateral lower extremities below the knees) Objective Data Vital Signs Vital Signs: Vital Signs - 24 hr 01/28/25 20:47 01/28/25 22:00 01/28/25 23:00 Temperature 98.1 F Pulse Rate 73 90 94 Respiratory Rate 18 17 17 Blood Pressure 135/90 101/68 117/68 Pulse Oximetry 99 94 96 Oxygen Delivery Room Air 01/29/25 00:00 01/29/25 01:00 01/29/25 02:15 Temperature Pulse Rate 97 97 70 Respiratory Rate 15 16 22 H Blood Pressure 117/79 115/79 Pulse Oximetry 99 99 99 Oxygen Delivery Room Air 01/29/25 02:17 01/29/25 04:00 01/29/25 04:32 Temperature 98.2 F 98.0 F Pulse Rate 70 64 64 Respiratory Rate 22 H 23 H 23 H Blood Pressure 142/80 H 119/65 Pulse Oximetry 99 97 97 Oxygen Delivery Room Air 01/29/25 05:12 01/29/25 06:00 01/29/25 08:00 Temperature 98.0 F Pulse Rate 64 65 71 Respiratory Rate 23 H 21 H Blood Pressure 121/72 134/87 Pulse Oximetry 98 96 Oxygen Delivery 01/29/25 08:00 01/29/25 08:00 01/29/25 09:17 Temperature Pulse Rate 85 85 Respiratory Rate Blood Pressure Pulse Oximetry Oxygen Delivery Room Air 01/29/25 10:00 01/29/25 12:00 Temperature 97.6 F Pulse Rate 66 76 Respiratory Rate 21 H Blood Pressure 121/75 Pulse Oximetry 95 Oxygen Delivery Intake/Output Intake/Output: Intake & Output 01/26/25 01/27/25 01/28/25 01/29/25 23:59 23:59 23:59 23:59 Intake Total 1240 Output Total 2375 Balance -1135 Meds/Results Medications: Active Medications Generic Name Dose Route Start Last Admin Trade Name Freq PRN Reason Stop Dose Admin Artificial Tears 2 drop 01/29/25 03:12 Artificial Tears Ophth Soln 15 Ml Bottle EACH EYE Q4-6H PRN Dry Eye(s) Buspirone HCl 30 mg 01/29/25 09:00 01/29/25 09:16 Buspirone Hcl 10 Mg Tablet PO 30 mg BID JERRY Administration Clonazepam 0.5 mg 01/29/25 14:00 Clonazepam (*Crx) 0.5 Mg Tablet PO BID@1400,2100 JERRY Clonazepam 1 mg 01/29/25 09:00 01/29/25 09:16 Clonazepam (*Crx) 0.5 Mg Tablet PO 1 mg QAM JERRY Administration Diazepam 5 mg 01/29/25 05:01 Diazepam Inj (*Crx) 10 Mg/2 Ml Syringe IV PUSH QAM PRN Anxiety Hydralazine HCl 5 mg 01/29/25 03:05 Hydralazine Hcl 20 Mg/Ml Vial IV PUSH Q8H PRN Blood Pressure - High Hydrochlorothiazide 25 mg 01/29/25 09:00 01/29/25 09:17 Hydrochlorothiazide 25 Mg Tablet PO 25 mg On Hold: 01/29/25 11:08 QAM JERRY Administration Hydroxyzine HCl 25 mg 01/29/25 08:23 Hydroxyzine Hcl 25 Mg Tablet PO DAILY PRN Anxiety Losartan Potassium 100 mg 01/29/25 09:00 01/29/25 09:17 Losartan Potassium 50 Mg Tablet PO 100 mg QAM JERRY Administration Metoprolol Tartrate 25 mg 01/29/25 09:00 01/29/25 09:17 Metoprolol Tartrate 25 Mg Tablet PO 25 mg TID JERRY Administration Mirtazapine 15 mg 01/29/25 21:00 Mirtazapine Soltab 15 Mg Tab.Disper SUBLINGUAL HS JERRY Miscellaneous Information 1 each 01/29/25 00:01 Order Clarification Cariprazine [Vraylar] 1.5 Mg Capsule Is Non-Formulary. XX 02/28/25 00:00 CLARIFY JERRY Miscellaneous Information 1 each 01/29/25 00:01 Order Clarification -Nonformulary Drug (Clomipramine 25 Mg Capsule)Is Non- Formulary. XX 02/28/25 00:00 CLARIFY [facility] Non-Formulary Medication 1.5 mg 01/29/25 09:00 Cariprazine [Vraylar] PO 02/28/25 08:59 QAM [facility] Non-Formulary Medication 25 mg 09/08/25 21:00 Clomipramine PO 10/08/25 20:59 HS JERRY Pantoprazole Sodium 40 mg 01/29/25 09:00 01/29/25 09:18 Pantoprazole Sodium Iv 40 Mg Vial IV PUSH 40 mg QAM JERRY Administration Pantoprazole Sodium 40 mg 01/29/25 09:30 Pantoprazole 40 Mg Tablet PO On Hold: 01/29/25 09:00 BID JERRY Sodium Chloride 500 mg 01/29/25 12:35 Sodium Chloride 500 Mg Tablet PO BID [facility] Labs Labs: Laboratory Results - last 24 hr 01/28/25 01/28/25 01/29/25 22:36 23:00 02:30 WBC 6.0 RBC 4.36 Hgb 12.4 Hct 34.5 L MCV 79.1 L MCH 28.4 MCHC 35.9 RDW 12.4 Plt Count 227 MPV 9.1 Immature Gran % (Auto) 0.2 Neut % (Auto) 71.4 Lymph % (Auto) 15.8 L [place] % (Auto) 11.6 H Eos % (Auto) 0.8 Baso % (Auto) 0.2 Lymph # (Auto) 0.95 [place] # (Auto) 0.7 H Eos # (Auto) 0.1 Baso # (Auto) 0.0 Abs Immat Gran (auto) 0.01 Absolute Neuts (auto) 4.3 Absolute Nucleated RBC 0.000 Nucleated RBC % 0.0 Sodium 116 L* 116 L* Potassium 3.5 3.5 Chloride 80 L 85 L Carbon Dioxide 28 28 Anion Gap 8 3 L BUN 7 6 L Creatinine 0.69 L 0.63 L Estim Creat Clear Calc 78 84 Estimated GFR > 60 > 60 Glucose 110 101 Calcium 9.4 9.0 Magnesium 1.7 Total Bilirubin 0.5 AST 36 ALT 30 Alkaline Phosphatase 90 Total Protein 7.1 Albumin 4.3 TSH (Reflex) 1.680 Urine Color Yellow Urine Appearance Clear Urine pH 7.0 Ur Specific [place] 1.004 Urine Protein Negative Urine Glucose (UA) Negative Urine Ketones Negative Ur Blood (Man) Negative Urine Nitrate Negative Urine Bilirubin Negative Urine Urobilinogen 0.2 Leukocyte Esterase Rfl Negative Ur Random Sodium 20 Ur Random Urea 120 Urine Creatinine 23.4 Salicylates < 1.0 L Urine Opiates Screen Negative Urine Methadone Screen Negative Acetaminophen < 10 L Ur Barbiturates Screen Negative Ur Phencyclidine Scrn Negative Ur Amphetamine Screen Negative U Benzodiazepines Scrn Negative Urine Cocaine Screen Negative U Cannabinoids Screen Negative Ethyl Alcohol < 10 01/29/25 01/29/25 06:23 12:01 WBC RBC Hgb Hct MCV MCH MCHC RDW Plt Count MPV Immature Gran % (Auto) Neut % (Auto) Lymph % (Auto) [place] % (Auto) Eos % (Auto) Baso % (Auto) Lymph # (Auto) [place] # (Auto) Eos # (Auto) Baso # (Auto) Abs Immat Gran (auto) Absolute Neuts (auto) Absolute Nucleated RBC Nucleated RBC % Sodium 120 L 119 L* Potassium 3.6 Chloride 87 L Carbon Dioxide 29 Anion Gap 4 BUN 6 L Creatinine 0.66 L Estim Creat Clear Calc 80 Estimated GFR > 60 Glucose 98 Calcium 9.0 Magnesium Total Bilirubin AST ALT Alkaline Phosphatase Total Protein Albumin TSH (Reflex) Urine Color Urine Appearance Urine pH Ur Specific [place] Urine Protein Urine Glucose (UA) Urine Ketones Ur Blood (Man) Urine Nitrate Urine Bilirubin Urine Urobilinogen Leukocyte Esterase Rfl Ur Random Sodium Ur Random Urea Urine Creatinine Salicylates Urine Opiates Screen Urine Methadone Screen Acetaminophen Ur Barbiturates Screen Ur Phencyclidine Scrn Ur Amphetamine Screen U Benzodiazepines Scrn Urine Cocaine Screen U Cannabinoids Screen Ethyl Alcohol
[2025-01-29] MEDS: clonazePAM (*CRX) 0.5 MG TABLET PO ×2 (13:50→20:28)
[2025-01-29] MEDS: SODIUM CHLORIDE 500 MG TABLET PO ×2 (13:50→16:58)
--- NOTE | 2025-01-29 14:18 | WPDGICN ---
Assessment and Plan Assessment and plan (1) Chronic hyponatremia: Code(s): E87.1 - Hypo-osmolality and hyponatremia Status: Acute Plan 1. Dysphagia: Patient with long standing Hx of swallowing difficulty. She states that while living in [place] she had 3 EGDs with esophageal dilations but states that her swallowing difficulty typically only improves for a few months after dilation. She recently had an EGD with esophageal dilation last month performed at [facility] and she had no improvement of symptoms. Given the description of her symptoms it sounds more oropharyngeal in nature. She states that she mostly has issues with pills but occasionally solid foods. No significant issues with liquids per patient her primary GI provider Dr. Kramer has already scheduled the patient for an esophageal manometry study next week at [facility]. No emergent workup needed while inpatient Patient advised to keep scheduled appointment for esophageal manometry and follow up with her primary media marketing manager outpatient 2. Chronic hyponatremia: Labs today show sodium 120 on admission 116. Primary care team to continue monitoring and correct Thank you very much for allowing me to share in the care of this very nice patient. This report may have been done utilizing a voice recognition system. Attempts have been made to correct errors. However, there may be uncorrected grammatical, spelling, and recognition errors present. GI Consult Note Consult date/time: 01/29/25 14:18 Reason for consult: Dysphagia HPI: Lyubov Steinberg is a 59 year old female with history of chronic hyponatremia, suicidal ideation, panic disorder, urinary retention with bladder stone. She presented to the emergency room yesterday with complaints of urinary retention. GI has been consulted for dysphagia. Patient was accompanied by her Dwaine without the entire visit. Patient states that she recently moved here from [facility] [place] where she was previously receiving her GI care. She has a longstanding history of swallowing difficulty and prior to moving here had had 3 EGDs with esophageal dilations but states that her dysphagia typically only improved for a few months but then return. She states that she had an EGD with dilation performed last month by Dr. Kramer at [facility] but did not have any improvement of her swallowing difficulty. She is already scheduled for an esophageal manometry at [facility] next week. Given her description of current symptoms her dysphagia sounds more oropharyngeal in nature. She has never seen an ENT provider. Patient's states that she had a swallow study a few years ago and was noted to have abnormalities noted in the upper esophagus but no additional details were available. Patient admits to a decreased appetite as she is fearful to eat due to this she has had a decrease in bowel frequency. She is still having daily bowel movements but she states that they are small. She does feel like she is completely evacuating and states that she does not require straining bowel movements. Stools are typically formed and not urgent she denies any incontinence. She denies any abdominal pain, nausea, vomiting, bloating, odynophagia, reflux, regurgitation, early satiety or weight loss. Denies diarrhea, hematochezia, or melena. She is a nondrinker nonsmoker and denies marijuana use. Family history negative for CRC or IBD. ENDOSCOPY HISTORY: EGD: Per patient last EGD with dilation performed last month at [facility], results not available COLONOSCOPY: Per patient last colonoscopy performed around 2021 while living in [place]. Colonoscopy was supposedly normal and 10 year follow-up was recommended. LABS AND STOOL STUDIES: Labs 01/28/2025: Sodium 120, potassium 3.6, BUN 6, creatinine 0.66, GFR >60, calcium 9.0 WBC 6, Hgb 12, Hct 35, MCV 79, platelets 227 Total bilirubin 0.5, AST 36, ALT 30, Alkaline Phos 90, albumin 4.3 TSH 1.680 IMAGING: No recent GI imaging available Review of Systems Constitutional: Constitutional: Reports as per HPI ENT: Reports as per HPI Cardiovascular: Cardiovascular: Reports as per HPI, Denies chest pain and Denies dyspnea Respiratory: Respiratory: Denies cough and Denies dyspnea Gastrointestinal: Gastrointestinal: Reports as per HPI Musculoskeletal: Musculoskeletal: Reports as per HPI Integumentary/Breasts: Skin/Breast: Reports as per HPI Psychiatric: Psychiatric: Reports as per HPI Endocrine: Endocrine: Reports no additional endocrine complaints Hematologic/Lymphatic: Hematologic/Lymphatic: Reports no additional hematologic/lymphatic complaints [facility] Past Medical History Medical History (Updated 01/29/25 @ 14:42 by Alexandra Mo APRN) OCD (obsessive compulsive disorder) Anxiety and depression Breast cancer Hypertension Dysphagia Anemia Hyponatremia Osteoarthritis GERD (gastroesophageal reflux disease) DAVID (generalized anxiety disorder) Urinary retention Family History Family History Mother Uterine cancer Father Lung cancer Sibling Diabetes mellitus Social History Social History Smoking status: Never smoker Alcohol intake: never Substance use: never Substance use type: does not use Lack of Transportation: No Lack of Food: Never True Current Housing: I Have Housing Concerned About Future Housing: No Difficulty Paying Gas/Electric Bills: No Difficulty Paying for Meds: No Currently Unemployed: No Education: Bachelor's Degree Difficulty w/ Childcare or Family Care: No Gender identity (if verbalized by the patient): Female Spiritual care concerns: No Meds Home Medications and Allergies Home Medications ?Medication ?Instructions ?Recorded ?Confirmed ?Type buspirone 10 mg tablet 30 mg PO BID 06/25/19 01/29/25 History clonazepam 0.5 mg tablet 0.5 mg PO .COMPLEX 06/25/19 01/29/25 History losartan 50 mg tablet 100 mg PO QAM 09/21/24 01/29/25 History carboxymethylcellulose sodium 0.5 2 drp EACH EYE Q4-6H PRN dry eye(s) 01/29/25 01/29/25 History % eye drops (Refresh Tears) cariprazine 1.5 mg capsule 1.5 mg PO QAM 01/29/25 01/29/25 History (Vraylar) clomipramine 25 mg capsule 25 mg PO HS 01/29/25 01/29/25 History clonazepam 1 mg tablet 1 mg PO QAM 01/29/25 01/29/25 History hydrochlorothiazide 10 mg/mL oral 25 mg PO QAM 01/29/25 01/29/25 History suspension (Inzirqo) hydroxyzine HCl 25 mg tablet 25 mg PO DAILY PRN anxiety 01/29/25 01/29/25 History metoprolol tartrate 10 mg/mL oral 25 mg PO TID 01/29/25 01/29/25 History solution (Lopressor) mirtazapine 15 mg disintegrating 15 mg translingual HS 01/29/25 01/29/25 History tablet omeprazole 20 mg delayed 20 mg PO BID 01/29/25 01/29/25 History release,disintegrating tablet Allergies Allergy/AdvReac Type Severity Reaction Status Date / Time tramadol Allergy Unknown RASH Verified 01/29/25 02:12 cephalexin (From Keflex) AdvReac Mild Anxiety Verified 01/29/25 02:12 Vital Signs Vital Signs - 24 hr 01/28/25 20:47 01/28/25 22:00 01/28/25 23:00 Temperature 98.1 F Pulse Rate 73 90 94 Respiratory Rate 18 17 17 Blood Pressure 135/90 101/68 117/68 Pulse Oximetry 99 94 96 Oxygen Delivery Room Air 01/29/25 00:00 01/29/25 01:00 01/29/25 02:15 Temperature Pulse Rate 97 97 70 Respiratory Rate 15 16 22 H Blood Pressure 117/79 115/79 Pulse Oximetry 99 99 99 Oxygen Delivery Room Air 01/29/25 02:17 01/29/25 04:00 01/29/25 04:32 Temperature 98.2 F 98.0 F Pulse Rate 70 64 64 Respiratory Rate 22 H 23 H 23 H Blood Pressure 142/80 H 119/65 Pulse Oximetry 99 97 97 Oxygen Delivery Room Air 01/29/25 05:12 01/29/25 06:00 01/29/25 08:00 Temperature 98.0 F Pulse Rate 64 65 71 Respiratory Rate 23 H 21 H Blood Pressure 121/72 134/87 Pulse Oximetry 98 96 Oxygen Delivery 01/29/25 08:00 01/29/25 08:00 01/29/25 09:17 Temperature Pulse Rate 85 85 Respiratory Rate Blood Pressure Pulse Oximetry Oxygen Delivery Room Air 01/29/25 10:00 01/29/25 12:00 01/29/25 12:00 Temperature 97.6 F Pulse Rate 66 76 Respiratory Rate 21 H Blood Pressure 121/75 Pulse Oximetry 95 Oxygen Delivery Room Air 01/29/25 12:00 01/29/25 13:50 Temperature Pulse Rate 79 79 Respiratory Rate Blood Pressure Pulse Oximetry Oxygen Delivery Exam Const: General: cooperative, healthy appearing, comfortable, no acute distress and well developed Orientation/consciousness: oriented to person, oriented to place, oriented to time and patient oriented x3 HENMT: Head: normal to inspection, normocephalic and atraumatic Mouth: Yes Normal oral and palatal mucosa present and Yes moist mucous membranes Eyes: General: appearance normal, both eyes and all related structures Conjunctivae: conjunctivae normal Sclera: sclerae normal Pupils: Equal, round and reactive pupils present Neck: Neck: normal visual inspection Chest: Chest palpation & inspection: normal inspection of the chest Resp: Effort & Inspection: normal respiratory effort and able to speak in complete sentences Auscultation: clear to auscultation bilaterally Cardio: Jugular venous distension: no JVD Rate: regular rate Rhythm: regular rhythm Heart sounds: S1 normal heart sound present and S2 normal heart sound present GI: Inspection: normal to inspection GI Palp: Yes Soft to palpation and Yes No hepatosplenomegaly present Auscultation: normal bowel sounds Rectal Exam: deferred Skin: General skin exam: normal color and no rashes or lesions noted Neuro: General: oriented to person, oriented to place, oriented to time and patient oriented x3 Cranial nerves: Yes Equal, round and reactive pupils present Speech: normal speech Extrem: General: normal to inspection and no clubbing, cyanosis or edema Psych: Appearance: grossly normal and well kempt Affect: normal affect Results Labs 01/28/25 23:00 01/29/25 12:01 Labs: Short CBC 01/28/25 Range/Units 23:00 WBC 6.0 (4.5-10.0) K/mm3 Hgb 12.4 (12.0-15.0) g/dL Hct 34.5 L (37.0-47.0) % Plt Count 227 (150-375) k/mm3 [facility] 01/28/25 01/29/25 01/29/25 23:00 02:30 06:23 Sodium 116 L* 116 L* 120 L Potassium 3.5 3.5 3.6 Chloride 80 L 85 L 87 L Carbon Dioxide 28 28 29 BUN 7 6 L 6 L Creatinine 0.69 L 0.63 L 0.66 L Glucose 110 101 98 Calcium 9.4 9.0 9.0 01/29/25 12:01 Sodium 119 L* Potassium Chloride Carbon Dioxide BUN Creatinine Glucose Calcium Liver Function 01/28/25 Range/Units 23:00 Total Bilirubin 0.5 (0.2-1.3) mg/dL AST 36 (14-36) U/L ALT 30 (6-35) U/L Alkaline Phosphatase 90 (38-126) U/L Albumin 4.3 (3.5-5.1) g/dL Urine 01/28/25 Range/Units 22:36 Urine Color Yellow (Yellow) Urine Appearance Clear (Clear) Urine pH 7.0 (5.0-9.0) Ur Specific [place] 1.004 (1.001-1.035) Urine Protein Negative (Negative) mg/dL Urine Glucose (UA) Negative (Negative) mg/dL
--- NOTE | 2025-01-29 14:32 | WPDURCON ---
Assessment and Plan Assessment and plan (1) Urinary retention: Code(s): R33.9 - Retention of urine, unspecified Status: Acute Plan Ms. Steinberg is a 59-year-old female with grcuz-kd-krfezal urinary retention and severe hyponatremia. Her urinary retention is likely multifactorial, potentially exacerbated by her severe hyponatremia, constipation, and a non-interrogated InterStim device. Her urinalysis is negative for infection and renal function is currently stable. Urine cultures and blood cultures are not available. - Renal ultrasound ordered to evaluate for hydronephrosis. - Will perform a voiding trial prior to discharge, likely once her sodium level normalizes and she is downgraded from the ICU. - No plan for inpatient urologic surgical intervention. - The psychiatry and internal medicine teams will continue to manage her psychiatric medications and hyponatremia, respectively. We will not add any new urologic medications at this time to avoid confounding side effects. - Plan to follow-up outpatient for InterStim interrogation and reprogramming. 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 Inpatient urology to follow peripherally. Please call with questions. Case discussed with Dr. Bush Urology Consult Note HPI Date Seen: 01/29/25 Requesting Physician: Alexandra Beaulieu MD Primary Care Provider: Lei Novoa, DO Consult Narrative Reason for consult: Urinary retention Narrative: Ms. Steinberg is a 59-year-old female admitted on 01/29/2025 with urinary retention and severe hyponatremia. She reports symptoms were progressive over a couple of days, culminating in a complete inability to void for 24 hours prior to presentation, associated with suprapubic pressure but no pain. An indwelling Carey catheter was placed with an initial output of 1600mL. She has a remote history of urinary retention and an InterStim device, which was placed in [place] >2 years ago and has not been reprogrammed since. She has a history of chronic hyponatremia, hypertension, anxiety, and dysphagia. She last saw Dr. Bush in our office in 2018. PERTINENT LABS: - 01/29/2025 - WBC 6.0, Hgb 12.4, Plt 227, Cr 0.66, Sodium 120. - Urinalysis: Negative for blood, leukocyte esterase, and nitrites. PERTINENT IMAGING: - None Review of Systems Constitutional: Constitutional: Reports fatigue ENT: Reports Normal hearing present Cardiovascular: Cardiovascular: Reports leg edema Respiratory: Respiratory: Denies dyspnea Gastrointestinal: Gastrointestinal: Reports constipation Genitourinary: Genitourinary: Reports as per [facility] Past Medical History Medical History (Updated 01/29/25 @ 14:42 by Alexandra Mo APRN) OCD (obsessive compulsive disorder) Anxiety and depression Breast cancer Hypertension Dysphagia Anemia Hyponatremia Osteoarthritis GERD (gastroesophageal reflux disease) DAVID (generalized anxiety disorder) Urinary retention Family History Family History Mother Uterine cancer Father Lung cancer Sibling Diabetes mellitus Social History Social History Smoking status: Never smoker Alcohol intake: never Substance use: never Substance use type: does not use Lack of Transportation: No Lack of Food: Never True Current Housing: I Have Housing Concerned About Future Housing: No Difficulty Paying Gas/Electric Bills: No Difficulty Paying for Meds: No Currently Unemployed: No Education: Bachelor's Degree Difficulty w/ Childcare or Family Care: No Gender identity (if verbalized by the patient): Female Spiritual care concerns: No Meds Home Medications and Allergies Home Medications ?Medication ?Instructions ?Recorded ?Confirmed ?Type buspirone 10 mg tablet 30 mg PO BID 06/25/19 01/29/25 History clonazepam 0.5 mg tablet 0.5 mg PO .COMPLEX 06/25/19 01/29/25 History losartan 50 mg tablet 100 mg PO QAM 09/21/24 01/29/25 History carboxymethylcellulose sodium 0.5 2 drp EACH EYE Q4-6H PRN dry eye(s) 01/29/25 01/29/25 History % eye drops (Refresh Tears) cariprazine 1.5 mg capsule 1.5 mg PO QAM 01/29/25 01/29/25 History (Vraylar) clomipramine 25 mg capsule 25 mg PO HS 01/29/25 01/29/25 History clonazepam 1 mg tablet 1 mg PO QAM 01/29/25 01/29/25 History hydrochlorothiazide 10 mg/mL oral 25 mg PO QAM 01/29/25 01/29/25 History suspension (Inzirqo) hydroxyzine HCl 25 mg tablet 25 mg PO DAILY PRN anxiety 01/29/25 01/29/25 History metoprolol tartrate 10 mg/mL oral 25 mg PO TID 01/29/25 01/29/25 History solution (Lopressor) mirtazapine 15 mg disintegrating 15 mg translingual HS 01/29/25 01/29/25 History tablet omeprazole 20 mg delayed 20 mg PO BID 01/29/25 01/29/25 History release,disintegrating tablet Allergies Allergy/AdvReac Type Severity Reaction Status Date / Time tramadol Allergy Unknown RASH Verified 01/29/25 02:12 cephalexin (From Keflex) AdvReac Mild Anxiety Verified 01/29/25 02:12 Vital Signs Vital Signs - 24 hr 01/28/25 20:47 01/28/25 22:00 01/28/25 23:00 Temperature 98.1 F Pulse Rate 73 90 94 Respiratory Rate 18 17 17 Blood Pressure 135/90 101/68 117/68 Pulse Oximetry 99 94 96 Oxygen Delivery Room Air 01/29/25 00:00 01/29/25 01:00 01/29/25 02:15 Temperature Pulse Rate 97 97 70 Respiratory Rate 15 16 22 H Blood Pressure 117/79 115/79 Pulse Oximetry 99 99 99 Oxygen Delivery Room Air 01/29/25 02:17 01/29/25 04:00 01/29/25 04:32 Temperature 98.2 F 98.0 F Pulse Rate 70 64 64 Respiratory Rate 22 H 23 H 23 H Blood Pressure 142/80 H 119/65 Pulse Oximetry 99 97 97 Oxygen Delivery Room Air 01/29/25 05:12 01/29/25 06:00 01/29/25 08:00 Temperature 98.0 F Pulse Rate 64 65 71 Respiratory Rate 23 H 21 H Blood Pressure 121/72 134/87 Pulse Oximetry 98 96 Oxygen Delivery 01/29/25 08:00 01/29/25 08:00 01/29/25 09:17 Temperature Pulse Rate 85 85 Respiratory Rate Blood Pressure Pulse Oximetry Oxygen Delivery Room Air 01/29/25 10:00 01/29/25 12:00 01/29/25 12:00 Temperature 97.6 F Pulse Rate 66 76 Respiratory Rate 21 H Blood Pressure 121/75 Pulse Oximetry 95 Oxygen Delivery Room Air 01/29/25 12:00 01/29/25 13:50 Temperature Pulse Rate 79 79 Respiratory Rate Blood Pressure Pulse Oximetry Oxygen Delivery Exam Narrative: General: The patient is well-developed in no acute distress. Comfortable on exam. HEENT: Normocephalic, normal ear and nose structures Skin: Warm, dry, with no lesions seen on visible skin Lungs: Normal respiratory effort Heart: Appears well perfused Abdomen: Nondistended Suprapubic area: Nondistended Genitourinary: Carey, yellow urinary output Extremities: Upper with no deformities. Neurologic: Normal mood and affect. Results Labs 01/28/25 23:00 01/29/25 12:01 Labs: Short CBC 01/28/25 Range/Units 23:00 WBC 6.0 (4.5-10.0) K/mm3 Hgb 12.4 (12.0-15.0) g/dL Hct 34.5 L (37.0-47.0) % Plt Count 227 (150-375) k/mm3 BMP 01/28/25 01/29/25 01/29/25 23:00 02:30 06:23 Sodium 116 L* 116 L* 120 L Potassium 3.5 3.5 3.6 Chloride 80 L 85 L 87 L Carbon Dioxide 28 28 29 BUN 7 6 L 6 L Creatinine 0.69 L 0.63 L 0.66 L Glucose 110 101 98 Calcium 9.4 9.0 9.0 01/29/25 12:01 Sodium 119 L* Potassium Chloride Carbon Dioxide BUN Creatinine Glucose Calcium Liver Function 01/28/25 Range/Units 23:00 Total Bilirubin 0.5 (0.2-1.3) mg/dL AST 36 (14-36) U/L ALT 30 (6-35) U/L Alkaline Phosphatase 90 (38-126) U/L Albumin 4.3 (3.5-5.1) g/dL Urine 01/28/25 Range/Units 22:36 Urine Color Yellow (Yellow) Urine Appearance Clear (Clear) Urine pH 7.0 (5.0-9.0) Ur Specific [place] 1.004 (1.001-1.035) Urine Protein Negative (Negative) mg/dL Urine Glucose (UA) Negative (Negative) mg/dL
[2025-01-29 15:59] LABS: Sodium 118 mmol/L (137-145)
--- NOTE | 2025-01-29 16:23 | PC.NURSE ---
This patient, Lyubov Steinberg, was transferred to [[id number]] on 01/29/25 at 1623. Personal belongings sent with patient. Report given to [Caty ELDRIDGE]. Appropriate documentation sent with patient.
[2025-01-29] MEDS: SODIUM CHLORIDE 0.9% IV 1,000 ML 75 ML IV CONT ×2 (16:57→23:44)
[2025-01-29] MEDS: MIRTAZAPINE SOLTAB 15 MG TAB.DISPER SUBLINGUAL (20:28)
[2025-01-29 21:47] LABS: Sodium 120 mmol/L (137-145)
[2025-01-30] VITALS (7 sets, daily range): BP systolic 127–135; BP diastolic 68–75; PULSE 66–81; RESP 12–20; TEMP 36.5–36.9; O2SAT 96–97
[2025-01-30 05:37] LABS: Albumin Level 3.6 g/dL (3.5-5.1); Anion Gap 6 mmol/L (4-12); Blood Urea Nitrogen 9 mg/dL (7-17); Calcium 8.9 mg/dL (8.4-10.2); Carbon Dioxide 28 mmol/L (22-30); Chloride 88 mmol/L (98-107); Estimated CRCL calculation 75 ml/min; Estimated Glomerular Filt Rate > 60; Glucose 89 mg/dL (65-110); Potassium 3.9 mmol/L (3.4-5.0); Sodium 122 mmol/L (137-145)
--- NOTE | 2025-01-30 07:02 | PM.IMPN ---
Progress Note: A&P Assessment and Plan (1) Acute hyponatremia: Code(s): E87.1 - Hypo-osmolality and hyponatremia Status: Acute Assessment and Plan: Sodium 116 on admission. Hyponatremia is acute on chronic, per nephrology sodium runs around 130 - 136mmol/L as far back as 2021 (with occasional readings below 130) Possibly related to urinary retention, PPI, HCTZ use, and/or decreased intake given dysphagia HCTZ placed on hold Nephrology consulted salt tabs/fluid restriction with intermittent IVFs urine electrolytes prerenal TSH okay cortisol lowish -- checking stim test serum/urine osmolality pending SPEP/UPEP + immunofixation pending Rule out SIDAH 2/2 SCLC with chest xr: Subsegmental atelectasis left mid chest. IS ordered. No focal deficits on exam, situational/short term memory recall (2) Urinary retention: Code(s): R33.9 - Retention of urine, unspecified Status: Acute Assessment and Plan: Chronic bladder stimulator placed by urologist many years ago and she has been able to urinate and has not had issues since then. Per chart review, patient has been having worsening urinary retention for about a month and over the past 24 hours she has not been able to urinate with increased bladder pressure UA nonconcerning for infection Carey placed with good urine output on I/O Monitor renal function, currently remains WNL Urology consulted Renal US unremarkable Voiding trial prior to discharge likely when sodium levels normalize No urologic surgical intervention Plan to follow-up outpatient for [employer] interrogation and reprogramming. 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 Carey catheter with good urine output. Remains hyponatremic. Will attempt voiding trial after sodium further improves. (3) DAVID (generalized anxiety disorder): Code(s): F41.1 - Generalized anxiety disorder Status: Acute Assessment and Plan: Long history of anxiety and depression Evaluated by psychiatry - continue Buspar 30 mg BID - hold hydroxyzine 25 mg PRN while in hospital, can continue at discharge - hold Clomipramine 25 daily while in the hospital, follow up with Corazon, primary psych provider on 02/05/2025 before resuming. - Continue Clonazepam 1 mg daily 0.5 mg in the evening 0.5 mg HS- prescribed by PCP - continue Mirtazapine 15 mg HS - d/c Vraylar 1.5 mg daily - Start quetiapine 50 mg HS. - follow up with primary psychiatric care provider, scheduled with 02/05/2025. (4) MDD (major depressive disorder), recurrent episode, severe: Qualifiers: Psychotic features: without psychotic features Qualified Code(s): F33.2 - Major depressive disorder, recurrent severe without psychotic features Code(s): F33.2 - Major depressive disorder, recurrent severe without psychotic features Status: Acute Assessment and Plan: Long history of anxiety and depression Evaluated by psychiatry [facility]ul psychiatry called patient's primary psychiatric care provider, Corazon and discussed treatment plan at [phone] with release of information of file. Spoke with patient and , Dwaine at bedside. D/c suicide precautions See plan above for DAVID (5) Dysphagia: Code(s): R13.10 - Dysphagia, unspecified Status: Acute Assessment and Plan: Chronic dysphagia status post esophageal dilatation at [facility] in 12/2024 without improvement Continue protonix 40 mg BID Speech evaluated and recommend MBS MBS unremarkable. Recommend reg diet or puree for patient preference and thin liquids. GI consulted There is no need for intervention given her florid history of dysphagia, evidently failing EGD and dilatation. Problem seems to be functional and an esophageal manometry will shed light regarding clear etiology of her problems. Achalasia is the #1 Diagnosis that needs to be addressed. Will sign off for now, but will be glad to see her as an outpatient after workup is completed. (6) Hypertension: Code(s): I10 - Essential (primary) hypertension Status: Acute Assessment and Plan: Chronic, continue home medications - losartan 100 mg daily - metoprolol 25 mg TID - blood pressures remain well controlled, continue to monitor Time Spent With Patient Time with patient: 25 - 35 minutes Subjective Date/time seen: 01/30/25 07:02 Interval history: 59-year-old female with past medical history of severe anxiety and panic disorder per self report, chronic hyponatremia baseline around 130, chronic urinary retention with a bladder stimulator, chronic dysphagia status post esophageal dilatation at [facility] in 12/2024, hypertension who presents to the hospital complaining of acute urinary retention. Patient is pleasant sitting up comfortably in bed with family at bedside. Patient continues to be anxious around the hospitalization and ongoing testing. She continues to endorse difficulty with swallowing however MBS unremarkable. Patient has no other complaints denying chest pain, palpitations, shortness of breath, nausea/vomiting and abdominal pain. Review of Systems Review of Systems: All systems reviewed & are unremarkable except as noted in HPI and below (Subjective) Exam Narrative: AF HR 81 RR 12 Spo2 96 BP 135/72 General: female in no acute respiratory distress who is nontoxic appearing, sitting up in bed. HEENT: Normocephalic. Atraumatic. Extraocular movement intact. Sclera clear and anicteric. No facial asymmetry. Chest: Lungs are clear to auscultation bilaterally. No wheezes or crackles. CV: Heart was regular rate and rhythm. Abd: Abdomen was soft. Nontender. Nondistended. Positive bowel sounds. Ext: No clubbing, cyanosis, or edema. DP pulses bilaterally. Neuro: Patient is alert and oriented x4. Strength is 5/5 in both upper and lower extremities. Cranial nerves 2-12 are intact. Speech is clear. Objective Data Vital Signs Vital Signs: Vital Signs - 24 hr 01/29/25 08:00 01/29/25 08:00 01/29/25 08:00 Temperature 98.0 F Pulse Rate 71 85 Respiratory Rate 21 H Blood Pressure 134/87 Pulse Oximetry 96 Oxygen Delivery Room Air 01/29/25 09:17 01/29/25 10:00 01/29/25 12:00 Temperature 97.6 F Pulse Rate 85 66 76 Respiratory Rate 21 H Blood Pressure 121/75 Pulse Oximetry 95 Oxygen Delivery 01/29/25 12:00 01/29/25 12:00 01/29/25 13:50 Temperature Pulse Rate 79 79 Respiratory Rate Blood Pressure Pulse Oximetry Oxygen Delivery Room Air 01/29/25 16:30 01/29/25 16:57 01/29/25 20:00 Temperature 98.2 F 98.4 F Pulse Rate 63 80 66 Respiratory Rate 16 12 Blood Pressure 109/59 L 125/69 Pulse Oximetry 97 99 Oxygen Delivery 01/29/25 20:00 01/29/25 20:24 01/29/25 23:48 Temperature 97.3 F L Pulse Rate 60 Respiratory Rate 12 Blood Pressure 110/63 Pulse Oximetry 96 97 Oxygen Delivery Room Air Room Air 01/30/25 05:36 Temperature 98.2 F Pulse Rate 67 Respiratory Rate 12 Blood Pressure 135/72 Pulse Oximetry 96 Oxygen Delivery Intake/Output Intake/Output: Intake & Output 01/27/25 01/28/25 01/29/25 01/30/25 23:59 23:59 23:59 23:59 Intake Total 1840 100 Output Total 4075 1350 Balance -4433 -8171 Meds/Results Medications: Active Medications Generic Name Dose Route Start Last Admin Trade Name Freq PRN Reason Stop Dose Admin Artificial Tears 2 drop 01/29/25 03:12 Artificial Tears Ophth Soln 15 Ml Bottle EACH EYE Q4-6H PRN Dry Eye(s) Buspirone HCl 30 mg 01/29/25 09:00 01/29/25 16:58 Buspirone Hcl 10 Mg Tablet PO 30 mg BID JERRY Administration Clonazepam 0.5 mg 01/29/25 14:00 01/29/25 20:28 Clonazepam (*Crx) 0.5 Mg Tablet PO 0.5 mg BID@1400,2100 JERRY Administration Clonazepam 1 mg 01/29/25 09:00 01/29/25 09:16 Clonazepam (*Crx) 0.5 Mg Tablet PO 1 mg QAM JERRY Administration Cosyntropin 0.25 mg 01/30/25 10:00 Cosyntropin 0.25 Mg/Ml Vial IV PUSH 01/30/25 10:01 ONCE ONE Diazepam 5 mg 01/29/25 05:01 Diazepam Inj (*Crx) 10 Mg/2 Ml Syringe IV PUSH QAM PRN Anxiety Enoxaparin Sodium 40 mg 01/30/25 09:00 Enoxaparin 40 Mg/0.4 Ml Syringe SUB-Q DAILY JERRY Hydralazine HCl 5 mg 01/29/25 03:05 Hydralazine Hcl 20 Mg/Ml Vial IV PUSH Q8H PRN Blood Pressure - High Hydrochlorothiazide 25 mg 01/29/25 09:00 01/29/25 09:17 Hydrochlorothiazide 25 Mg Tablet PO 25 mg On Hold: 01/29/25 11:08 QAM JERRY Administration Hydroxyzine HCl 25 mg 01/29/25 08:23 Hydroxyzine Hcl 25 Mg Tablet PO DAILY PRN Anxiety Sodium Chloride 1,000 mls @ 75 mls/hr 01/30/25 06:15 Normal Saline Iv IV CONT .[id number] JERRY Losartan Potassium 100 mg 01/29/25 09:00 01/29/25 09:17 Losartan Potassium 50 Mg Tablet PO 100 mg QAM JERRY Administration Metoprolol Tartrate 25 mg 01/29/25 09:00 01/29/25 16:57 Metoprolol Tartrate 25 Mg Tablet PO 25 mg TID JERRY Administration Mirtazapine 15 mg 01/29/25 21:00 01/29/25 20:28 Mirtazapine Soltab 15 Mg Tab.Disper SUBLINGUAL 15 mg HS JERRY Administration Pantoprazole Sodium 40 mg 01/29/25 09:00 01/29/25 09:18 Pantoprazole Sodium Iv 40 Mg Vial IV PUSH 40 mg QAM JERRY Administration Pantoprazole Sodium 40 mg 01/29/25 09:30 Pantoprazole 40 Mg Tablet PO On Hold: 01/29/25 09:00 BID [facility] Sodium Chloride 500 mg 01/29/25 12:35 01/29/25 16:58 Sodium Chloride 500 Mg Tablet PO 500 mg BID JERRY Administration Radiology Results: ITS Impressions Chest X-Ray 01/29/25 18:29 Impression: 1: Subsegmental atelectasis left mid chest. Labs Labs: Laboratory Results - last 24 hr 01/29/25 01/29/25 01/29/25 12:01 15:45 21:16 Sodium 119 L* 118 L* 120 L Potassium Chloride Carbon Dioxide Anion Gap BUN Creatinine Estim Creat Clear Calc Estimated GFR Glucose Calcium Phosphorus Albumin Random Cortisol 01/30/25 04:48 Sodium 122 L Potassium 3.9 Chloride 88 L Carbon Dioxide 28 Anion Gap 6 BUN 9 Creatinine 0.72 Estim Creat Clear Calc 75 Estimated GFR > 60 Glucose 89 Calcium 8.9 Phosphorus 3.9 Albumin 3.6 Random Cortisol 7.69 Quality VTE Prophylaxis VTE prophylaxis: pharmacologic ordered
[2025-01-30 07:23] LABS: Hematocrit 32.8 % (37.0-47.0); Hemoglobin 11.3 g/dL (12.0-15.0); Mean Corpuscular HGB Conc 34.5 g/dl (32-36); Mean Corpuscular Hemoglobin 28.9 pg (26-34); Mean Corpuscular Volume 83.9 fl (80-100); Platelet Count Result 224 k/mm3 (150-375); Red Blood Count 3.91 M/mm3 (4.2-5.4); White Blood Count 4.9 K/mm3 (4.5-10.0)
[2025-01-30] MEDS: SODIUM CHLORIDE 0.9% IV 1,000 ML 75 ML IV CONT (08:42)
[2025-01-30] MEDS: clonazePAM (*CRX) 0.5 MG TABLET 1 MG PO (08:42)
[2025-01-30] MEDS: LOSARTAN POTASSIUM 50 MG TABLET 100 MG PO (08:42)
[2025-01-30] MEDS: METOPROLOL TARTRATE 25 MG TABLET PO ×3 (08:43→17:12)
[2025-01-30] MEDS: SODIUM CHLORIDE 500 MG TABLET PO (08:45)
[2025-01-30] MEDS: PANTOPRAZOLE SODIUM IV 40 MG VIAL IV PUSH (08:47)
[2025-01-30] MEDS: ENOXAPARIN 40 MG/0.4 ML SYRINGE SUB-Q (08:47)
--- NOTE | 2025-01-30 09:48 | P.PNNP_ITS ---
Progress Note: A&P Assessment and Plan (1) Hyponatremia: Code(s): E87.1 - Hypo-osmolality and hyponatremia Status: Acute Assessment and Plan: * slow improvement * acute on chronic * labs ~ 1 month ago (December 2024) demonstrated a sodium of 136mmol/L * review of labs demonstrate sodium runs around 130 - 136mmol/L as far back as 2021 (with occasional readings below 130) * multiple risk factors: * urinary retention * HCTZ use * previous/current psychiatric medications * excessive free water intake (due to dysphagia issues) * PPI use * prerenal factors (diminished oral intake due to dysphagia) * other(?) * hold HCTZ for now * on salt tabs + fluid restriction and intermittent nomal saline IVFs * evaluation to date noted: * urine electrolytes prerenal * TSH okay * cortisol lowish -- checking stim test * serum/urine osmolality pending * SPEP/UPEP + immunofixation pending * goal of therapy is a rate of change in sodium of 6 - 8mmol/L in 24 hours * follow trend of repeat sodiums (2) Urinary retention: Code(s): R33.9 - Retention of urine, unspecified Status: Acute Assessment and Plan: * reported chronic history * s/p bladder stimulator placed by urologist several years ago.. * worsening urinary retention for about a month with worsening in the past 24 hours prior to admission * s/p chavarria catheter placement in ER * Urology following with recommendations noted (3) Dysphagia: Code(s): R13.10 - Dysphagia, unspecified Status: Acute Assessment and Plan: * also somewhat a chronic issue * status post esophageal dilatation at [facility] in 12/2024 without improvement * seen by Speech Theray * planning MBS for further evaluation (4) Hypertension: Code(s): I10 - Essential (primary) hypertension Status: Acute Assessment and Plan: * reasonable control * holding HCTZ due to #1 * follow trend of hemodynamics Will continue to follow. Subjective Date/time seen: 01/30/25 09:48 Interval history: Follow-up for acute on chronic hyponatremia. Sodium slowly improving with current interventions/therapy (salt tabs/fluid restriction/normal saline IVFs); good urine output noted with chavarria catheter in place; no apparent distress but still report significant dysphagia at the time of my visit; at bedside. Exam Narrative: General: WD/WN female in NAD Heart: normal S1 and S2; no rub Lungs: clear to auscultation Abdomen: soft, nontender, nondistended, positive bowel sounds Extremities: no cyanosis or clubbing; no edema Skin: warm and dry Objective Data Vital Signs Vital Signs: Vital Signs Temp Pulse Resp BP Pulse Ox O2 Del Method 01/30/25 08:43 73 01/30/25 08:40 Room Air 01/30/25 05:36 98.2 F 67 12 135/72 96 01/29/25 23:48 97.3 F L 60 12 110/63 97 01/29/25 20:24 96 Room Air 01/29/25 20:00 Room Air 01/29/25 20:00 98.4 F 66 12 125/69 99 01/29/25 16:57 80 01/29/25 16:30 98.2 F 63 16 109/59 L 97 01/29/25 13:50 79 Intake/Output Intake/Output: Intake & Output 01/27/25 01/28/25 01/29/25 01/30/25 23:59 23:59 23:59 23:59 Intake Total 1840 220 Output Total 4075 1350 Balance -2235 -1130 Meds/Results Medications: Active Medications Generic Name Dose Route Start Last Admin Trade Name Freq PRN Reason Stop Dose Admin Artificial Tears 2 drop 01/29/25 03:12 Artificial Tears Ophth Soln 15 Ml Bottle EACH EYE Q4-6H PRN Dry Eye(s) Buspirone HCl 30 mg 01/29/25 09:00 01/30/25 08:42 Buspirone Hcl 10 Mg Tablet PO 30 mg BID JERRY Administration Clonazepam 0.5 mg 01/29/25 14:00 01/29/25 20:28 Clonazepam (*Crx) 0.5 Mg Tablet PO 0.5 mg BID@1400,2100 JERRY Administration Clonazepam 1 mg 01/29/25 09:00 01/30/25 08:42 Clonazepam (*Crx) 0.5 Mg Tablet PO 1 mg QAM JERRY Administration Diazepam 5 mg 01/29/25 05:01 Diazepam Inj (*Crx) 10 Mg/2 Ml Syringe IV PUSH QAM PRN Anxiety Enoxaparin Sodium 40 mg 01/30/25 09:00 01/30/25 08:47 Enoxaparin 40 Mg/0.4 Ml Syringe SUB-Q 40 mg DAILY JERRY Administration Hydralazine HCl 5 mg 01/29/25 03:05 Hydralazine Hcl 20 Mg/Ml Vial IV PUSH Q8H PRN Blood Pressure - High Hydrochlorothiazide 25 mg 01/29/25 09:00 01/29/25 09:17 Hydrochlorothiazide 25 Mg Tablet PO 25 mg On Hold: 01/29/25 11:08 QAM JERRY Administration Hydroxyzine HCl 25 mg 01/29/25 08:23 01/30/25 08:45 Hydroxyzine Hcl 25 Mg Tablet PO 25 mg DAILY PRN Administration Anxiety Sodium Chloride 1,000 mls @ 75 mls/hr 01/30/25 06:15 01/30/25 08:42 Normal Saline Iv IV CONT 75 mls/hr .[id number] JERRY Administration Losartan Potassium 100 mg 01/29/25 09:00 01/30/25 08:42 Losartan Potassium 50 Mg Tablet PO 100 mg QAM JERRY Administration Metoprolol Tartrate 25 mg 01/29/25 09:00 01/30/25 08:43 Metoprolol Tartrate 25 Mg Tablet PO 25 mg TID JERRY Administration Mirtazapine 15 mg 01/29/25 21:00 01/29/25 20:28 Mirtazapine Soltab 15 Mg Tab.Disper SUBLINGUAL 15 mg HS JERRY Administration Pantoprazole Sodium 40 mg 01/29/25 09:00 01/30/25 08:47 Pantoprazole Sodium Iv 40 Mg Vial IV PUSH 40 mg QAM JERRY Administration Pantoprazole Sodium 40 mg 01/29/25 09:30 Pantoprazole 40 Mg Tablet PO On Hold: 01/29/25 09:00 BID JERRY Sodium Chloride 1,000 mg 01/30/25 17:00 Sodium Chloride 500 Mg Tablet PO BID [facility] Radiology Results: ITS Impressions Chest X-Ray 01/29/25 18:29 Impression: 1: Subsegmental atelectasis left mid chest. Modified Barium Swallow 01/30/25 12:40 IMPRESSION: Patient tolerated regular consistency oral feedings in the upright position. Please correlate with speech pathologist findings and specific feeding recommendations. Labs Labs: Laboratory Tests 01/29/25 01/29/25 01/30/25 15:45 21:16 04:48 WBC 4.9 Hgb 11.3 L Hct 32.8 L Plt Count 224 Sodium 118 L* 120 L 122 L Potassium 3.9 Chloride 88 L Carbon Dioxide 28 Anion Gap 6 BUN 9 Creatinine 0.72 Estim Creat Clear Calc 75 Estimated GFR > 60 Glucose 89 Calcium 8.9 Phosphorus 3.9 Albumin 3.6 Random Cortisol 7.69
[2025-01-30] MEDS: COSYNTROPIN 0.25 MG/ML VIAL IV PUSH (09:54)
[2025-01-30 11:21] LABS: Sodium 122 mmol/L (137-145)
--- NOTE | 2025-01-30 11:49 | WPDUROPN2 ---
Progress Note: A&P Assessment and Plan Plan - Sodium improving to 122, however, overall remains hyponatremic - Pt remains hyponatremic at 122, however, up trending. Maintain Carey catheter and plan for TOV once sodium normalizes - KENNEDY pending to evaluate for hydro in the setting of large volume AUR; creatinine stable Subjective Subjective Date/Time Seen: 01/30/25 11:49 NAEO, patient feeling feel and Carey catheter draining clear, yellow urine without issue. Review of Systems Review of Systems: All systems reviewed & are unremarkable except as noted in HPI and below (Subjective) Exam Narrative: General: The patient is well-developed in no acute distress. Comfortable on exam. HEENT: Normocephalic, normal ear and nose structures Skin: Warm, dry, with no lesions seen on visible skin Lungs: Normal respiratory effort Heart: Appears well perfused Abdomen: Nondistended Suprapubic area: Nondistended Genitourinary: Carey, yellow urinary output Extremities: Upper with no deformities. Neurologic: Normal mood and affect. Const: General: comfortable and no acute distress Objective Data Vital Signs Vital Signs: Vital Signs - 24 hr 01/29/25 12:00 01/29/25 12:00 01/29/25 12:00 Temperature 36.4 C Pulse Rate 76 79 Respiratory Rate 21 H Blood Pressure 121/75 Pulse Oximetry 95 Oxygen Delivery Room Air 01/29/25 13:50 01/29/25 16:30 01/29/25 16:57 Temperature 36.8 C Pulse Rate 79 63 80 Respiratory Rate 16 Blood Pressure 109/59 L Pulse Oximetry 97 Oxygen Delivery 01/29/25 20:00 01/29/25 20:00 01/29/25 20:24 Temperature 36.9 C Pulse Rate 66 Respiratory Rate 12 Blood Pressure 125/69 Pulse Oximetry 99 96 Oxygen Delivery Room Air Room Air 01/29/25 23:48 01/30/25 05:36 01/30/25 08:40 Temperature 36.3 C L 36.8 C Pulse Rate 60 67 Respiratory Rate 12 12 Blood Pressure 110/63 135/72 Pulse Oximetry 97 96 Oxygen Delivery Room Air 01/30/25 08:43 Temperature Pulse Rate 73 Respiratory Rate Blood Pressure Pulse Oximetry Oxygen Delivery Intake/Output Intake/Output: Intake & Output 09/06/25 09/07/25 09/08/25 09/09/25 23:59 23:59 23:59 23:59 Intake Total 1840 220 Output Total 4070 9019 Balance -8737 -8378 Meds/Results Medications: Active Medications Generic Name Dose Route Start Last Admin Trade Name Freq PRN Reason Stop Dose Admin Artificial Tears 2 drop 01/29/25 03:12 Artificial Tears Ophth Soln 15 Ml Bottle EACH EYE Q4-6H PRN Dry Eye(s) Buspirone HCl 30 mg 01/29/25 09:00 01/30/25 08:42 Buspirone Hcl 10 Mg Tablet PO 30 mg BID JERRY Administration Clonazepam 0.5 mg 01/29/25 14:00 01/29/25 20:28 Clonazepam (*Crx) 0.5 Mg Tablet PO 0.5 mg BID@1400,2100 JERRY Administration Clonazepam 1 mg 01/29/25 09:00 01/30/25 08:42 Clonazepam (*Crx) 0.5 Mg Tablet PO 1 mg QAM JERRY Administration Diazepam 5 mg 01/29/25 05:01 Diazepam Inj (*Crx) 10 Mg/2 Ml Syringe IV PUSH QAM PRN Anxiety Enoxaparin Sodium 40 mg 01/30/25 09:00 01/30/25 08:47 Enoxaparin 40 Mg/0.4 Ml Syringe SUB-Q 40 mg DAILY JERRY Administration Hydralazine HCl 5 mg 01/29/25 03:05 Hydralazine Hcl 20 Mg/Ml Vial IV PUSH Q8H PRN Blood Pressure - High Hydrochlorothiazide 25 mg 01/29/25 09:00 01/29/25 09:17 Hydrochlorothiazide 25 Mg Tablet PO 25 mg On Hold: 01/29/25 11:08 QAM JERRY Administration Hydroxyzine HCl 25 mg 01/29/25 08:23 01/30/25 08:45 Hydroxyzine Hcl 25 Mg Tablet PO 25 mg DAILY PRN Administration Anxiety Sodium Chloride 1,000 mls @ 75 mls/hr 01/30/25 06:15 01/30/25 08:42 Normal Saline Iv IV CONT 75 mls/hr .[id number] JERRY Administration Losartan Potassium 100 mg 01/29/25 09:00 01/30/25 08:42 Losartan Potassium 50 Mg Tablet PO 100 mg QAM JERRY Administration Metoprolol Tartrate 25 mg 01/29/25 09:00 01/30/25 08:43 Metoprolol Tartrate 25 Mg Tablet PO 25 mg TID JERRY Administration Mirtazapine 15 mg 01/29/25 21:00 01/29/25 20:28 Mirtazapine Soltab 15 Mg Tab.Disper SUBLINGUAL 15 mg HS JERRY Administration Pantoprazole Sodium 40 mg 01/29/25 09:00 01/30/25 08:47 Pantoprazole Sodium Iv 40 Mg Vial IV PUSH 40 mg QAM JERRY Administration Pantoprazole Sodium 40 mg 01/29/25 09:30 Pantoprazole 40 Mg Tablet PO On Hold: 01/29/25 09:00 BID JERRY Sodium Chloride 500 mg 01/29/25 12:35 01/30/25 08:45 Sodium Chloride 500 Mg Tablet PO 500 mg BID JERRY Administration Radiology Results: ITS Impressions Chest X-Ray 01/29/25 18:29 Impression: 1: Subsegmental atelectasis left mid chest. Labs Labs: Laboratory Results - last 24 hr 01/29/25 01/29/25 01/29/25 12:01 15:45 21:16 WBC RBC Hgb Hct MCV MCH MCHC RDW Plt Count MPV Sodium 119 L* 118 L* 120 L Potassium Chloride Carbon Dioxide Anion Gap BUN Creatinine Estim Creat Clear Calc Estimated GFR Glucose Calcium Phosphorus Albumin Random Cortisol Cortisol Baseline Cortisol Resp 30 Min 01/30/25 01/30/25 01/30/25 04:48 09:30 10:27 WBC 4.9 RBC 3.91 L Hgb 11.3 L Hct 32.8 L MCV 83.9 D MCH 28.9 MCHC 34.5 RDW 13.2 Plt Count 224 MPV 9.5 Sodium 122 L Potassium 3.9 Chloride 88 L Carbon Dioxide 28 Anion Gap 6 BUN 9 Creatinine 0.72 Estim Creat Clear Calc 75 Estimated GFR > 60 Glucose 89 Calcium 8.9 Phosphorus 3.9 Albumin 3.6 Random Cortisol 7.69 Cortisol Baseline 12.30 Cortisol Resp 30 Min 35.00 01/30/25 11:01 WBC RBC Hgb Hct MCV MCH MCHC RDW Plt Count MPV Sodium 122 L Potassium Chloride Carbon Dioxide Anion Gap BUN Creatinine Estim Creat Clear Calc Estimated GFR Glucose Calcium Phosphorus Albumin Random Cortisol Cortisol Baseline Cortisol Resp 30 Min
[2025-01-30 11:55] LABS: Cortisol 60 Minute 43.90 ug/dL
--- NOTE | 2025-01-30 12:48 | PCSTNOTE ---
Please refer to the Modified Barium Swallow Evaluation in the EMR. The patient is a 59 year old female referred for a MBS Study based on recent BSE results. The patient reports feeling a sticking sensation in her throat all the time both with and without food. She reports the sensation at mid sternum region and since has become fearful of eating and choking. The patient presently takes 20 mg omeprazole 2x daily for reflux for several years. She reports the changes in her swallow function have been without the last month. The patient was viewed in a lateral position with the following consistencies: 5cc/tsp thin liquid barium, cup amounts thin liquid barium, pudding mixed with barium paste, and oatmeal coated with barium (The patient was too fearful to complete trials with a cracker consistency). Oral Stage: Timely oral preparation and transit all consistencies. Pharyngeal Stage: Timely swallow initiation without viewed aspiration or penetration all consistencies. No residual viewed to remain in the valleculae or pyriform sinus for all consistencies. Recommend 1. Regular Diet / Level 7 or Puree / Level 4 if patient preference 2. Thin Liquid / Level 0 3. Small bites and drinks for patient comfort 4. Alternate bites and drinks again for patient comfort.
[2025-01-30] MEDS: clonazePAM (*CRX) 0.5 MG TABLET PO ×2 (14:01→21:27)
[2025-01-30] MEDS: SODIUM CHLORIDE 500 MG TABLET 1000 MG PO (17:12)
[2025-01-30 17:26] LABS: Sodium 123 mmol/L (137-145)
[2025-01-30] MEDS: MIRTAZAPINE SOLTAB 15 MG TAB.DISPER SUBLINGUAL (21:28)
[2025-01-30 23:07] LABS: Osmolality, Urine 120 mOsmol/kg (.)
[2025-01-30 23:50] LABS: Sodium 124 mmol/L (137-145)
[2025-01-31] VITALS (8 sets, daily range): BP systolic 126–138; BP diastolic 66–72; PULSE 71–80; RESP 16–20; TEMP 36.6–36.9; O2SAT 96–98
[2025-01-31] MEDS: SODIUM CHLORIDE 0.9% IV 1,000 ML 75 ML IV CONT ×2 (02:46→16:41)
[2025-01-31 06:30] LABS: Alanine Aminotransferase 28 U/L (6-35); Albumin Level 3.5 g/dL (3.5-5.1); Alkaline Phosphatase 61 U/L (38-126); Anion Gap 6 mmol/L (4-12); Aspartate Amino Transferase 29 U/L (14-36); Bilirubin,Total 0.2 mg/dL (0.2-1.3); Blood Urea Nitrogen 10 mg/dL (7-17); Calcium 9.0 mg/dL (8.4-10.2); Carbon Dioxide 27 mmol/L (22-30); Chloride 94 mmol/L (98-107); Estimated CRCL calculation 76 ml/min; Estimated Glomerular Filt Rate > 60; Glucose 86 mg/dL (65-110); Potassium 4.0 mmol/L (3.4-5.0); Sodium 127 mmol/L (137-145); Total Protein 5.8 g/dL (6.3-8.2)
[2025-01-31] MEDS: SODIUM CHLORIDE 500 MG TABLET 1000 MG PO ×2 (09:09→16:38)
[2025-01-31] MEDS: METOPROLOL TARTRATE 25 MG TABLET PO ×3 (09:09→16:39)
[2025-01-31] MEDS: ENOXAPARIN 40 MG/0.4 ML SYRINGE SUB-Q (09:10)
[2025-01-31] MEDS: LOSARTAN POTASSIUM 50 MG TABLET 100 MG PO (09:10)
[2025-01-31] MEDS: clonazePAM (*CRX) 0.5 MG TABLET 1 MG PO (09:10)
[2025-01-31] MEDS: PANTOPRAZOLE SODIUM IV 40 MG VIAL IV PUSH (09:10)
[2025-01-31 11:08] LABS: Osmolality, Serum 239 mOsmol/kg (280-301)
[2025-01-31 12:05] LABS: Sodium 127 mmol/L (137-145)
[2025-01-31 12:08] LABS: Albumin 3.3 g/dL (2.9-4.4); Alpha-1-Globulin 0.2 g/dL (0.0-0.4); Alpha-2-Globulin 0.6 g/dL (0.4-1.0); Gamma Globulin 0.8 g/dL (0.4-1.8)
--- NOTE | 2025-01-31 13:00 | P.PNNP_ITS ---
Progress Note: A&P Assessment and Plan (1) Hyponatremia: Code(s): E87.1 - Hypo-osmolality and hyponatremia Status: Acute Assessment and Plan: * slow improvemet * acute on chronic * labs ~ 1 month ago (December 2024) demonstrated a sodium of 136mmol/L * review of labs demonstrate sodium runs around 130 - 136mmol/L as far back as 2021 (with occassional readings below 130) * multiple risk factors: * urinary retention * HCTZ use * previous/current psychiatric medications * excessive free water intake (due to dysphagia issues) * PPI use * prerenal factors (diminished oral intake due to dysphagia) * other(?) * hold HCTZ for now * oin salt tabs/fluid restriction and intermittent nomal saline IVFs * evaluation to date noted: * urine electrolytes prerenal * TSH okay * cortisol lowish -- stim test okay * serum/urine osmolality pending * SPEP/UPEP + immunofixation pending * follow trend of repeat sodiums (2) Urinary retention: Code(s): R33.9 - Retention of urine, unspecified Status: Acute Assessment and Plan: * reported chronic history * s/p bladder stimulator placed by urologist several years ago.. * worsening urinary retention for about a month with worsening in the past 24 hours prior to admission * s/p chavarria catheter placement in ER * Urology following with recommendations noted (3) Dysphagia: Code(s): R13.10 - Dysphagia, unspecified Status: Acute Assessment and Plan: * also somewhat a chronic issue * status post esophageal dilatation at [facility] in 12/2024 without improvement * seen by Speech Therapy: * passed MBS * GI recommendations noted * advance diet as tolerated (4) Hypertension: Code(s): I10 - Essential (primary) hypertension Status: Acute Assessment and Plan: * reasonable control * holding HCTZ due to #1 * follow trend of hemodynamics Will continue to follow. L Subjective Date/time seen: 01/31/25 13:00 Interval history: Follow-up for acute on chronic hyponatremia. Sodium continues to slowly improving with current interventions/therapy to date; no apparent distress noted at this time; passed MBS without any issues or problems; at bedside and we discussed the situation in detail; no other acute issues or events overnight or earlier this morning. Exam 2 Narrative: General: WD/WN female in NAD Heart: normal S1 and S2; no rub Lungs: clear to auscultation Abdomen: soft, nontender, nondistended, positive bowel sounds Extremities: no cyanosis or clubbing; no edema Skin: warm and intact Objective Data Vital Signs Vital Signs: Vital Signs Temp Pulse Resp BP Pulse Ox O2 Del Method 01/31/25 12:28 80 01/31/25 09:10 16 98 Room Air 01/31/25 09:09 80 01/31/25 08:00 97.8 F 80 16 134/72 98 01/31/25 04:43 98.2 F 71 20 132/69 96 01/30/25 21:12 97 Room Air 01/30/25 21:10 97.7 F 66 20 134/75 97 Intake/Output Intake/Output: Intake & Output 01/28/25 01/29/25 01/30/25 01/31/25 23:59 23:59 23:59 23:59 Intake Total 3200 436 0154.0 Output Total 4075 3400 2650 Balance -2235 -2820 730.0 Meds/Results Medications: Active Medications Generic Name Dose Route Start Last Admin Trade Name Freq PRN Reason Stop Dose Admin Artificial Tears 2 drop 01/29/25 03:12 Artificial Tears Ophth Soln 15 Ml Bottle EACH EYE Q4-6H PRN Dry Eye(s) Buspirone HCl 30 mg 01/29/25 09:00 01/31/25 16:39 Buspirone Hcl 10 Mg Tablet PO 30 mg BID JERRY Administration Clonazepam 0.5 mg 01/29/25 14:00 01/31/25 13:29 Clonazepam (*Crx) 0.5 Mg Tablet PO 0.5 mg BID@1400,2100 JERRY Administration Clonazepam 1 mg 01/29/25 09:00 01/31/25 09:10 Clonazepam (*Crx) 0.5 Mg Tablet PO 1 mg QAM JERRY Administration Diazepam 5 mg 01/29/25 05:01 Diazepam Inj (*Crx) 10 Mg/2 Ml Syringe IV PUSH QAM PRN Anxiety Enoxaparin Sodium 40 mg 01/30/25 09:00 01/31/25 09:10 Enoxaparin 40 Mg/0.4 Ml Syringe SUB-Q 40 mg DAILY JERRY Administration Hydralazine HCl 5 mg 01/29/25 03:05 Hydralazine Hcl 20 Mg/Ml Vial IV PUSH Q8H PRN Blood Pressure - High Hydrochlorothiazide 25 mg 01/29/25 09:00 01/29/25 09:17 Hydrochlorothiazide 25 Mg Tablet PO 25 mg On Hold: 01/29/25 11:08 QAM JERRY Administration Hydroxyzine HCl 25 mg 01/29/25 08:23 01/30/25 08:45 Hydroxyzine Hcl 25 Mg Tablet PO 25 mg DAILY PRN Administration Anxiety Sodium Chloride 1,000 mls @ 75 mls/hr 01/30/25 06:15 01/31/25 16:41 Normal Saline Iv IV CONT 75 mls/hr .[id number] JERRY Administration Losartan Potassium 100 mg 01/29/25 09:00 01/31/25 09:10 Losartan Potassium 50 Mg Tablet PO 100 mg QAM JERRY Administration Metoprolol Tartrate 25 mg 01/29/25 09:00 01/31/25 16:39 Metoprolol Tartrate 25 Mg Tablet PO 25 mg TID JERRY Administration Mirtazapine 15 mg 01/29/25 21:00 01/30/25 21:28 Mirtazapine Soltab 15 Mg Tab.Disper SUBLINGUAL 15 mg HS JERRY Administration Pantoprazole Sodium 40 mg 01/29/25 09:00 01/31/25 09:10 Pantoprazole Sodium Iv 40 Mg Vial IV PUSH 40 mg QAM JERRY Administration Pantoprazole Sodium 40 mg 01/29/25 09:30 Pantoprazole 40 Mg Tablet PO On Hold: 01/29/25 09:00 BID JERRY Sodium Chloride 1,000 mg 01/30/25 17:00 01/31/25 16:38 Sodium Chloride 500 Mg Tablet PO 1,000 mg BID JERRY Administration Radiology Results: ITS Impressions Chest X-Ray 01/29/25 18:29 Impression: 1: Subsegmental atelectasis left mid chest. Modified Barium Swallow 01/30/25 12:40 IMPRESSION: Patient tolerated regular consistency oral feedings in the upright position. Please correlate with speech pathologist findings and specific feeding recommendations. Renal Ultrasound 01/30/25 13:38 Impression: 1: Unremarkable renal ultrasound. No stones, masses or hydronephrosis. Labs Labs: Laboratory Tests 01/30/25 04:48 01/31/25 11:40 01/31/25 05:09 Sodium 127 L Potassium 4.0 Chloride 94 L Carbon Dioxide 27 Anion Gap 6 BUN 10 Creatinine 0.71 Estim Creat Clear Calc 76 Estimated GFR > 60 Glucose 86 Calcium 9.0 Total Bilirubin 0.2 AST 29 ALT 28 Alkaline Phosphatase 61 Total Protein 5.8 L Albumin 3.5
[2025-01-31] MEDS: clonazePAM (*CRX) 0.5 MG TABLET PO ×2 (13:29→21:56)
--- NOTE | 2025-01-31 13:50 | P.PNIM_ITS ---
Progress Note: A&P Assessment and Plan (1) Acute hyponatremia: Code(s): E87.1 - Hypo-osmolality and hyponatremia Status: Acute Assessment and Plan: Sodium 116 on admission. Hyponatremia is acute on chronic, per nephrology sodium runs around 130 - 136mmol/L as far back as 2021 (with occasional readings below 130) Possibly related to urinary retention, PPI, HCTZ use, and/or decreased intake given dysphagia HCTZ placed on hold Nephrology consulted * salt tabs/fluid restriction with intermittent IVFs * urine electrolytes prerenal * TSH okay * cortisol lowish -- checking stim test * serum/urine osmolality pending * SPEP/UPEP + immunofixation pending Rule out SIDAH 2/2 SCLC with chest xr: Subsegmental atelectasis left mid chest. IS ordered. No focal deficits on exam, situational/short term memory recall nephrology is following (2) Urinary retention: Code(s): R33.9 - Retention of urine, unspecified Status: Acute Assessment and Plan: Chronic bladder stimulator placed by urologist many years ago and she has been able to urinate and has not had issues since then. Per chart review, patient has been having worsening urinary retention for about a month and over the past 24 hours she has not been able to urinate with increased bladder pressure UA nonconcerning for infection Chavarria placed with good urine output on I/O Monitor renal function, currently remains WNL Urology consulted Renal US unremarkable Voiding trial prior to discharge likely when sodium levels normalize No urologic surgical intervention Plan to follow-up outpatient for [employer] interrogation and reprogramming. 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 Chavarria catheter with good urine output. Remains hyponatremic. Will attempt voiding trial after sodium further improves. (3) DAVID (generalized anxiety disorder): Code(s): F41.1 - Generalized anxiety disorder Status: Acute Assessment and Plan: Long history of anxiety and depression Evaluated by psychiatry - continue Buspar 30 mg BID - hold hydroxyzine 25 mg PRN while in hospital, can continue at discharge - hold Clomipramine 25 daily while in the hospital, follow up with Corazon primary psych provider on 02/05/2025 before resuming. - Continue Clonazepam 1 mg daily 0.5 mg in the evening 0.5 mg HS- prescribed by PCP - continue Mirtazapine 15 mg HS - d/c Vraylar 1.5 mg daily - Start quetiapine 50 mg HS. - follow up with primary psychiatric care provider, scheduled with 02/05/2025. (4) MDD (major depressive disorder), recurrent episode, severe: Qualifiers: Psychotic features: without psychotic features Qualified Code(s): F33.2 - Major depressive disorder, recurrent severe without psychotic features Code(s): F33.2 - Major depressive disorder, recurrent severe without psychotic features Status: Acute Assessment and Plan: Long history of anxiety and depression Evaluated by psychiatry [facility] psychiatry called patient's primary psychiatric care provider, Corazon and discussed treatment plan at [phone] with release of information of file. Spoke with patient and , Dwaine at bedside. D/c suicide precautions See plan above for DAVID (5) Dysphagia: Code(s): R13.10 - Dysphagia, unspecified Status: Acute Assessment and Plan: Chronic dysphagia status post esophageal dilatation at [facility] in 12/2024 without improvement Continue protonix 40 mg BID Speech evaluated and recommend MBS MBS unremarkable. Recommend reg diet or puree for patient preference and thin liquids. GI consulted There is no need for intervention given her florid history of dysphagia, evidently failing EGD and dilatation. Problem seems to be functional and an esophageal manometry will shed light regarding clear etiology of her problems. Achalasia is the #1 Diagnosis that needs to be addressed. Will sign off for now, but will be glad to see her as an outpatient after workup is completed. (6) Hypertension: Code(s): I10 - Essential (primary) hypertension Status: Acute Assessment and Plan: Chronic, continue home medications - losartan 100 mg daily - metoprolol 25 mg TID - blood pressures remain well controlled, continue to monitor Time Spent With Patient Time with patient: 25 - 35 minutes Subjective Date/time seen: 01/31/25 13:50 Interval history: 59-year-old female with past medical history of severe anxiety and panic disorder per self report, chronic hyponatremia baseline around 130, chronic urinary retention with a bladder stimulator, chronic dysphagia status post esophageal dilatation at [facility] in 12/2024, hypertension who presents to the hospital complaining of acute urinary retention. Pt is seen and examined. nephrology is following. She is anxious and reports difficulties with swallowing. She passed her swallow eval. Family at the bedside. She is wondering about chavarria cath- we will do bladder training today and d/c chavarria. Denies any other issues. Review of Systems Review of Systems: All systems reviewed & are unremarkable except as noted in HPI and below (Subjective) Exam Narrative: AF HR 81 RR 12 Spo2 96 BP 135/72 General: female in no acute respiratory distress who is nontoxic appearing, sitting up in bed. HEENT: Normocephalic. Atraumatic. Extraocular movement intact. Sclera clear and anicteric. No facial asymmetry. Chest: Lungs are clear to auscultation bilaterally. No wheezes or crackles. CV: Heart was regular rate and rhythm. Abd: Abdomen was soft. Nontender. Nondistended. Positive bowel sounds. Ext: No clubbing, cyanosis, or edema. DP pulses bilaterally. Neuro: Patient is alert and oriented x4. Strength is 5/5 in both upper and lower extremities. Cranial nerves 2-12 are intact. Speech is clear. Const: General: comfortable and no acute distress Other: A&O x3, anxious affect HENMT: Mouth: Yes moist mucous membranes Eyes: Pupils: Equal, round and reactive pupils present Neck: Neck: supple Resp: Effort & Inspection: normal respiratory effort Auscultation: clear to auscultation bilaterally Cardio: Rate: regular rate Rhythm: regular rhythm GI: Inspection: non-distended : General: Yes bladder normal to palpation Bimanual exam- vagina & uterus: bladder normal to palpation Neuro: Cranial nerves: Yes Equal, round and reactive pupils present Motor exam (neuro): 5/5 motor strength present throughout Extrem: General: edema (Trace pitting edema bilateral lower extremities below the knees) Objective Data Vital Signs Vital Signs: Vital Signs - 24 hr 01/30/25 14:01 01/30/25 14:42 01/30/25 17:12 Temperature 98.4 F Pulse Rate 81 81 80 Respiratory Rate 18 Blood Pressure 127/68 Pulse Oximetry 97 Oxygen Delivery 01/30/25 21:10 01/30/25 21:12 01/31/25 04:43 Temperature 97.7 F 98.2 F Pulse Rate 66 71 Respiratory Rate 20 20 Blood Pressure 134/75 132/69 Pulse Oximetry 97 97 96 Oxygen Delivery Room Air 01/31/25 08:00 01/31/25 09:09 01/31/25 09:10 Temperature 97.8 F Pulse Rate 80 80 Respiratory Rate 16 16 Blood Pressure 134/72 Pulse Oximetry 98 98 Oxygen Delivery Room Air 01/31/25 12:28 01/31/25 13:49 Temperature 98.4 F Pulse Rate 80 74 Respiratory Rate 16 Blood Pressure 126/69 Pulse Oximetry 98 Oxygen Delivery Intake/Output Intake/Output: Intake & Output 01/28/25 01/29/25 01/30/25 01/31/25 23:59 23:59 23:59 23:59 Intake Total 4518 843 5339.0 Output Total 4075 3400 1850 Balance -4061 -1847 675.0 Meds/Results Medications: Active Medications Generic Name Dose Route Start Last Admin Trade Name Freq PRN Reason Stop Dose Admin Artificial Tears 2 drop 01/29/25 03:12 Artificial Tears Ophth Soln 15 Ml Bottle EACH EYE Q4-6H PRN Dry Eye(s) Buspirone HCl 30 mg 01/29/25 09:00 01/31/25 09:09 Buspirone Hcl 10 Mg Tablet PO 30 mg BID JERRY Administration Clonazepam 0.5 mg 01/29/25 14:00 01/31/25 13:29 Clonazepam (*Crx) 0.5 Mg Tablet PO 0.5 mg BID@1400,2100 JERRY Administration Clonazepam 1 mg 01/29/25 09:00 01/31/25 09:10 Clonazepam (*Crx) 0.5 Mg Tablet PO 1 mg QAM JERRY Administration Diazepam 5 mg 01/29/25 05:01 Diazepam Inj (*Crx) 10 Mg/2 Ml Syringe IV PUSH QAM PRN Anxiety Enoxaparin Sodium 40 mg 01/30/25 09:00 01/31/25 09:10 Enoxaparin 40 Mg/0.4 Ml Syringe SUB-Q 40 mg DAILY JERRY Administration Hydralazine HCl 5 mg 01/29/25 03:05 Hydralazine Hcl 20 Mg/Ml Vial IV PUSH Q8H PRN Blood Pressure - High Hydrochlorothiazide 25 mg 01/29/25 09:00 01/29/25 09:17 Hydrochlorothiazide 25 Mg Tablet PO 25 mg On Hold: 01/29/25 11:08 QAM JERRY Administration Hydroxyzine HCl 25 mg 01/29/25 08:23 01/30/25 08:45 Hydroxyzine Hcl 25 Mg Tablet PO 25 mg DAILY PRN Administration Anxiety Sodium Chloride 1,000 mls @ 75 mls/hr 01/30/25 06:15 01/31/25 12:26 Normal Saline Iv IV CONT 75 mls/hr .[id number] JERRY Infusion Losartan Potassium 100 mg 01/29/25 09:00 01/31/25 09:10 Losartan Potassium 50 Mg Tablet PO 100 mg QAM JERRY Administration Metoprolol Tartrate 25 mg 01/29/25 09:00 01/31/25 12:28 Metoprolol Tartrate 25 Mg Tablet PO 25 mg TID JERRY Administration Mirtazapine 15 mg 01/29/25 21:00 01/30/25 21:28 Mirtazapine Soltab 15 Mg Tab.Disper SUBLINGUAL 15 mg HS JERRY Administration Pantoprazole Sodium 40 mg 01/29/25 09:00 01/31/25 09:10 Pantoprazole Sodium Iv 40 Mg Vial IV PUSH 40 mg QAM JERRY Administration Pantoprazole Sodium 40 mg 01/29/25 09:30 Pantoprazole 40 Mg Tablet PO On Hold: 01/29/25 09:00 BID JERRY Sodium Chloride 1,000 mg 01/30/25 17:00 01/31/25 09:09 Sodium Chloride 500 Mg Tablet PO 1,000 mg BID JERRY Administration Radiology Results: ITS Impressions Chest X-Ray 01/29/25 18:29 Impression: 1: Subsegmental atelectasis left mid chest. Modified Barium Swallow 01/30/25 12:40 IMPRESSION: Patient tolerated regular consistency oral feedings in the upright position. Please correlate with speech pathologist findings and specific feeding recommendations. Renal Ultrasound 01/30/25 13:38 Impression: 1: Unremarkable renal ultrasound. No stones, masses or hydronephrosis. Labs Labs: Laboratory Results - last 24 hr 01/28/25 01/29/25 01/30/25 22:36 00:13 04:48 Sodium Potassium Chloride Carbon Dioxide Anion Gap BUN Creatinine Estim Creat Clear Calc Estimated GFR Glucose Serum Osmolality 239 L Calcium Total Bilirubin AST ALT Alkaline Phosphatase Total Protein Total Protein (PEP) 5.8 L Albumin Albumin (PEP) 3.3 Globulin (PEP) 2.5 Albumin/Globulin Ratio 1.3 Ifyyv-4-Ceeednquy 0.2 Kqvap-8-Sgvuxsoxl 0.6 Beta Globulins 0.8 Gamma Globulins 0.8 PEP Comment Comment Urine Osmolality 120 Pr Electrophoresis MSpike Not observed 01/30/25 01/30/25 01/31/25 17:07 23:37 05:09 Sodium 123 L 124 L 127 L Potassium 4.0 Chloride 94 L Carbon Dioxide 27 Anion Gap 6 BUN 10 Creatinine 0.71 Estim Creat Clear Calc 76 Estimated GFR > 60 Glucose 86 Serum Osmolality Calcium 9.0 Total Bilirubin 0.2 AST 29 ALT 28 Alkaline Phosphatase 61 Total Protein 5.8 L Total Protein (PEP) Albumin 3.5 Albumin (PEP) Globulin (PEP) Albumin/Globulin Ratio Wcywq-7-Ujibdivpq Tjtao-0-Ocauueggz Beta Globulins Gamma Globulins PEP Comment Urine Osmolality Pr Electrophoresis MSpike 01/31/25 11:40 Sodium 127 L Potassium Chloride Carbon Dioxide Anion Gap BUN Creatinine Estim Creat Clear Calc Estimated GFR Glucose Serum Osmolality Calcium Total Bilirubin AST ALT Alkaline Phosphatase Total Protein Total Protein (PEP) Albumin Albumin (PEP) Globulin (PEP) Albumin/Globulin Ratio Zuriq-8-Xmdomgnjy Bstuo-5-Invawjemt Beta Globulins Gamma Globulins PEP Comment Urine Osmolality Pr Electrophoresis MSpike Quality VTE Prophylaxis VTE prophylaxis: pharmacologic ordered
[2025-01-31 20:43] LABS: Sodium 127 mmol/L (137-145)
[2025-01-31] MEDS: MIRTAZAPINE SOLTAB 15 MG TAB.DISPER SUBLINGUAL (21:56)
[2025-02-01 05:08] LABS: Alanine Aminotransferase 28 U/L (6-35); Albumin Level 3.5 g/dL (3.5-5.1); Alkaline Phosphatase 67 U/L (38-126); Anion Gap 5 mmol/L (4-12); Aspartate Amino Transferase 28 U/L (14-36); Bilirubin,Total < 0.1 mg/dL (0.2-1.3); Blood Urea Nitrogen 11 mg/dL (7-17); Calcium 8.8 mg/dL (8.4-10.2); Carbon Dioxide 25 mmol/L (22-30); Chloride 99 mmol/L (98-107); Estimated CRCL calculation 83 ml/min; Estimated Glomerular Filt Rate > 60; Glucose 96 mg/dL (65-110); Potassium 4.1 mmol/L (3.4-5.0); Sodium 129 mmol/L (137-145); Total Protein 5.8 g/dL (6.3-8.2)
[2025-02-01 05:22] VITALS: BP 147/75; PULSE 84; RESP 18; TEMP 36.7; O2SAT 97
[2025-02-01] MEDS: SODIUM CHLORIDE 500 MG TABLET 1000 MG PO (08:05)
[2025-02-01 08:06] VITALS: PULSE 90
[2025-02-01] MEDS: clonazePAM (*CRX) 0.5 MG TABLET 1 MG PO (08:06)
[2025-02-01] MEDS: METOPROLOL TARTRATE 25 MG TABLET PO ×2 (08:06→13:17)
[2025-02-01] MEDS: LOSARTAN POTASSIUM 50 MG TABLET 100 MG PO (08:06)
[2025-02-01] MEDS: ENOXAPARIN 40 MG/0.4 ML SYRINGE SUB-Q (08:16)
[2025-02-01] MEDS: PANTOPRAZOLE SODIUM IV 40 MG VIAL IV PUSH (08:16)
[2025-02-01] MEDS: diazePAM (*CRX) 5 MG TABLET PO ×2 (09:59→10:03)
--- NOTE | 2025-02-01 11:14 | P.PNIM_ITS ---
Progress Note: A&P Assessment and Plan (1) Acute hyponatremia: Code(s): E87.1 - Hypo-osmolality and hyponatremia Status: Acute Assessment and Plan: Sodium 116 on admission. Hyponatremia is acute on chronic, per nephrology sodium runs around 130 - 136mmol/L as far back as 2021 (with occasional readings below 130) Possibly related to urinary retention, PPI, HCTZ use, and/or decreased intake given dysphagia HCTZ placed on hold Nephrology consulted * salt tabs/fluid restriction with intermittent IVFs * urine electrolytes prerenal * TSH okay * cortisol lowish -- checking stim test * serum/urine osmolality pending * SPEP/UPEP + immunofixation pending Rule out SIDAH 2/2 SCLC with chest xr: Subsegmental atelectasis left mid chest. IS ordered. No focal deficits on exam, situational/short term memory recall nephrology is following (2) Urinary retention: Code(s): R33.9 - Retention of urine, unspecified Status: Acute Assessment and Plan: Chronic bladder stimulator placed by urologist many years ago and she has been able to urinate and has not had issues since then. Per chart review, patient has been having worsening urinary retention for about a month and over the past 24 hours she has not been able to urinate with increased bladder pressure UA nonconcerning for infection Carey placed with good urine output on I/O Monitor renal function, currently remains WNL Urology consulted Renal US unremarkable Voiding trial prior to discharge likely when sodium levels normalize No urologic surgical intervention Plan to follow-up outpatient for [employer] interrogation and reprogramming. 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 Carey catheter with good urine output. Remains hyponatremic. Will attempt voiding trial after sodium further improves. (3) DAVID (generalized anxiety disorder): Code(s): F41.1 - Generalized anxiety disorder Status: Acute Assessment and Plan: Long history of anxiety and depression Evaluated by psychiatry - continue Buspar 30 mg BID - hold hydroxyzine 25 mg PRN while in hospital, can continue at discharge - hold Clomipramine 25 daily while in the hospital, follow up with Corazon primary psych provider on 02/05/2025 before resuming. - Continue Clonazepam 1 mg daily 0.5 mg in the evening 0.5 mg HS- prescribed by PCP - continue Mirtazapine 15 mg HS - d/c Vraylar 1.5 mg daily - Start quetiapine 50 mg HS. - follow up with primary psychiatric care provider, scheduled with 02/05/2025. (4) MDD (major depressive disorder), recurrent episode, severe: Qualifiers: Psychotic features: without psychotic features Qualified Code(s): F33.2 - Major depressive disorder, recurrent severe without psychotic features Code(s): F33.2 - Major depressive disorder, recurrent severe without psychotic features Status: Acute Assessment and Plan: Long history of anxiety and depression Evaluated by psychiatry [facility] psychiatry called patient's primary psychiatric care provider, Corazon and discussed treatment plan at [phone] with release of information of file. Spoke with patient and , Dwaine at bedside. D/c suicide precautions See plan above for DAVID (5) Dysphagia: Code(s): R13.10 - Dysphagia, unspecified Status: Acute Assessment and Plan: Chronic dysphagia status post esophageal dilatation at [facility] in 12/2024 without improvement Continue protonix 40 mg BID Speech evaluated and recommend MBS MBS unremarkable. Recommend reg diet or puree for patient preference and thin liquids. GI consulted There is no need for intervention given her florid history of dysphagia, evidently failing EGD and dilatation. Problem seems to be functional and an esophageal manometry will shed light regarding clear etiology of her problems. Achalasia is the #1 Diagnosis that needs to be addressed. Will sign off for now, but will be glad to see her as an outpatient after workup is completed. (6) Hypertension: Code(s): I10 - Essential (primary) hypertension Status: Acute Assessment and Plan: Chronic, continue home medications - losartan 100 mg daily - metoprolol 25 mg TID - blood pressures remain well controlled, continue to monitor Subjective Date/time seen: 02/01/25 11:14 Interval history: Follow-up for acute on chronic hyponatremia. Sodium continues to slowly improving with current interventions/therapy to date; no apparent distress noted at this time; at bedside and we discussed the situation in detail; no other acute issues or events overnight or earlier this morning. Review of Systems Review of Systems: All systems reviewed & are unremarkable except as noted in HPI and below (Subjective) Exam Narrative: AF HR 81 RR 12 Spo2 96 BP 135/72 General: female in no acute respiratory distress who is nontoxic appearing, sitting up in bed. HEENT: Normocephalic. Atraumatic. Extraocular movement intact. Sclera clear and anicteric. No facial asymmetry. Chest: Lungs are clear to auscultation bilaterally. No wheezes or crackles. CV: Heart was regular rate and rhythm. Abd: Abdomen was soft. Nontender. Nondistended. Positive bowel sounds. Ext: No clubbing, cyanosis, or edema. DP pulses bilaterally. Neuro: Patient is alert and oriented x4. Strength is 5/5 in both upper and lower extremities. Cranial nerves 2-12 are intact. Speech is clear. Const: General: comfortable and no acute distress Other: A&O x3, anxious affect HENMT: Mouth: Yes moist mucous membranes Eyes: Pupils: Equal, round and reactive pupils present Neck: Neck: supple Resp: Effort & Inspection: normal respiratory effort Auscultation: clear to auscultation bilaterally Cardio: Rate: regular rate Rhythm: regular rhythm GI: Inspection: non-distended : General: Yes bladder normal to palpation Bimanual exam- vagina & uterus: bladder normal to palpation Neuro: Cranial nerves: Yes Equal, round and reactive pupils present Motor exam (neuro): 5/5 motor strength present throughout Extrem: General: edema (Trace pitting edema bilateral lower extremities below the knees) Objective Data Vital Signs Vital Signs: Vital Signs - 24 hr 01/31/25 12:28 01/31/25 13:49 01/31/25 16:39 Temperature 98.4 F Pulse Rate 80 74 74 Respiratory Rate 16 Blood Pressure 126/69 Pulse Oximetry 98 01/31/25 20:22 02/01/25 05:22 02/01/25 08:06 Temperature 98.2 F 98.1 F Pulse Rate 76 84 90 Respiratory Rate 20 18 Blood Pressure 138/66 147/75 H Pulse Oximetry 96 97 Intake/Output Intake/Output: Intake & Output 01/29/25 01/30/25 01/31/25 02/01/25 23:59 23:59 23:59 23:59 Intake Total 8160 147 1908.0 1250 Output Total 4075 3400 2650 2500 Balance -2235 -2820 730.0 -1250 Meds/Results Medications: Active Medications Generic Name Dose Route Start Last Admin Trade Name Mansoorq PRN Reason Stop Dose Admin Artificial Tears 2 drop 01/29/25 03:12 Artificial Tears Ophth Soln 15 Ml Bottle EACH EYE Q4-6H PRN Dry Eye(s) Buspirone HCl 30 mg 01/29/25 09:00 02/01/25 08:05 Buspirone Hcl 10 Mg Tablet PO 30 mg BID JERRY Administration Clonazepam 0.5 mg 01/29/25 14:00 01/31/25 21:56 Clonazepam (*Crx) 0.5 Mg Tablet PO 0.5 mg BID@1400,2100 JERRY Administration Clonazepam 1 mg 01/29/25 09:00 02/01/25 08:06 Clonazepam (*Crx) 0.5 Mg Tablet PO 1 mg QAM JERRY Administration Diazepam 5 mg 02/01/25 08:21 02/01/25 10:03 Diazepam (*Crx) 5 Mg Tablet PO 5 mg DAILY PRN Administration Anxiety Enoxaparin Sodium 40 mg 01/30/25 09:00 02/01/25 08:16 Enoxaparin 40 Mg/0.4 Ml Syringe SUB-Q 40 mg DAILY JERRY Administration Hydralazine HCl 5 mg 01/29/25 03:05 Hydralazine Hcl 20 Mg/Ml Vial IV PUSH Q8H PRN Blood Pressure - High Hydrochlorothiazide 25 mg 01/29/25 09:00 01/29/25 09:17 Hydrochlorothiazide 25 Mg Tablet PO 25 mg On Hold: 01/29/25 11:08 QAM JERRY Administration Losartan Potassium 100 mg 01/29/25 09:00 02/01/25 08:06 Losartan Potassium 50 Mg Tablet PO 100 mg QAM JERRY Administration Metoprolol Tartrate 25 mg 01/29/25 09:00 02/01/25 08:06 Metoprolol Tartrate 25 Mg Tablet PO 25 mg TID JERRY Administration Mirtazapine 15 mg 01/29/25 21:00 01/31/25 21:56 Mirtazapine Soltab 15 Mg Tab.Disper SUBLINGUAL 15 mg HS JERRY Administration Pantoprazole Sodium 40 mg 01/29/25 09:00 02/01/25 08:16 Pantoprazole Sodium Iv 40 Mg Vial IV PUSH 40 mg QAM JERRY Administration Pantoprazole Sodium 40 mg 01/29/25 09:30 Pantoprazole 40 Mg Tablet PO On Hold: 01/29/25 09:00 BID [facility] Sodium Chloride 1,000 mg 01/30/25 17:00 02/01/25 08:05 Sodium Chloride 500 Mg Tablet PO 1,000 mg BID JERRY Administration Radiology Results: ITS Impressions Chest X-Ray 01/29/25 18:29 Impression: 1: Subsegmental atelectasis left mid chest. Modified Barium Swallow 01/30/25 12:40 IMPRESSION: Patient tolerated regular consistency oral feedings in the upright position. Please correlate with speech pathologist findings and specific feeding recommendations. Renal Ultrasound 01/30/25 13:38 Impression: 1: Unremarkable renal ultrasound. No stones, masses or hydronephrosis. Labs Labs: Laboratory Results - last 24 hr 01/30/25 01/30/25 01/31/25 04:48 05:21 11:40 Sodium 127 L Potassium Chloride Carbon Dioxide Anion Gap BUN Creatinine Estim Creat Clear Calc Estimated GFR Glucose Calcium Total Bilirubin AST ALT Alkaline Phosphatase Total Protein Total Protein (PEP) 5.8 L Albumin Albumin (PEP) 3.3 Globulin (PEP) 2.5 Albumin/Globulin Ratio 1.3 Xloxr-3-Dosbjrqqk 0.2 Klprf-5-Txmhbbeii 0.6 Beta Globulins 0.8 Gamma Globulins 0.8 PEP Comment Comment Pr Electrophoresis MSpike Not observed Urine Immunofixation Comment 01/31/25 02/01/25 20:25 04:12 Sodium 127 L 129 L Potassium 4.1 Chloride 99 Carbon Dioxide 25 Anion Gap 5 BUN 11 Creatinine 0.65 L Estim Creat Clear Calc 83 Estimated GFR > 60 Glucose 96 Calcium 8.8 Total Bilirubin < 0.1 L AST 28 ALT 28 Alkaline Phosphatase 67 Total Protein 5.8 L Total Protein (PEP) Albumin 3.5 Albumin (PEP) Globulin (PEP) Albumin/Globulin Ratio Tzttg-3-Qmsqkafdm Qfcxp-5-Yijlcskup Beta Globulins Gamma Globulins PEP Comment Pr Electrophoresis MSpike Urine Immunofixation Quality VTE Prophylaxis VTE prophylaxis: pharmacologic ordered
--- NOTE | 2025-02-01 12:32 | PM.PNNEP ---
Progress Note: A&P Assessment and Plan (1) Hyponatremia: Code(s): E87.1 - Hypo-osmolality and hyponatremia Status: Acute Assessment and Plan: slow improvemet acute on chronic labs ~ 1 month ago (December 2024) demonstrated a sodium of 136mmol/L review of labs demonstrate sodium runs around 130 - 136mmol/L as far back as 2021 (with occassional readings below 130) multiple risk factors: urinary retention HCTZ use previous/current psychiatric medications excessive free water intake (due to dysphagia issues) PPI use prerenal factors (diminished oral intake due to dysphagia) other(?) hold HCTZ for now oin salt tabs + fluid restriction evaluation to date noted: urine electrolytes prerenal TSH okay cortisol lowish -- cosyntropin stimulation test okay serum osmolality 239; urine osmolality 120 SPEP and UPEP without M-spike follow trend of repeat sodiums (2) Urinary retention: Code(s): R33.9 - Retention of urine, unspecified Status: Acute Assessment and Plan: reported chronic history s/p bladder stimulator placed by urologist several years ago.. worsening urinary retention for about a month with worsening in the past 24 hours prior to admission s/p chavarria catheter placement in ER Urology following with recommendations noted (3) Dysphagia: Code(s): R13.10 - Dysphagia, unspecified Status: Acute Assessment and Plan: also somewhat a chronic issue status post esophageal dilatation at [facility] in 12/2024 without improvement seen by Speech Therapy: passed MBS GI recommendations noted advance diet as tolerated (4) Hypertension: Code(s): I10 - Essential (primary) hypertension Status: Acute Assessment and Plan: reasonable control holding HCTZ due to #1 follow trend of hemodynamics Not opposed to discharge from renal perspective if otherwise medically stable; hold HCTZ on discharge and continue salt tabs + fluid restriction with repeat labs by PCP with plan to wean off salt tabs as able. Will continue to follow. Subjective Date/time seen: 02/01/25 12:32 Interval history: Follow-up for acute on chronic hyponatremia. No apparent distress noted at this time; chavarria catheter removed and waiting for her to void on her own; sodium continues to slowly improve with current therapy/interventions; weaned off IVFs; no other issues/events overnight or earleri this morning. Exam Narrative: General: WD/WN female in NAD Heart: normal S1 and S2; no rub Lungs: clear to auscultation Abdomen: soft, nontender, nondistended, positive bowel sounds Extremities: no cyanosis or clubbing; no edema Skin: no rash or nodules Objective Data Vital Signs Vital Signs: Vital Signs Temp Pulse Resp BP Pulse Ox 02/01/25 08:06 90 02/01/25 05:22 98.1 F 84 18 147/75 H 97 01/31/25 20:22 98.2 F 76 20 138/66 96 01/31/25 16:39 74 Intake/Output Intake/Output: Intake & Output 01/29/25 01/30/25 01/31/25 02/01/25 23:59 23:59 23:59 23:59 Intake Total 5206 386 0475.0 1490 Output Total 4075 3400 2650 2500 Balance -2235 -2820 730.0 -1010 Meds/Results Medications: Active Medications Generic Name Dose Route Start Trade Name Freq PRN Reason Stop Artificial Tears 2 drop 01/29/25 03:12 Artificial Tears Ophth Soln 15 Ml Bottle EACH EYE Q4-6H PRN Dry Eye(s) Buspirone HCl 30 mg 01/29/25 09:00 Buspirone Hcl 10 Mg Tablet PO BID JERRY Clonazepam 0.5 mg 01/29/25 14:00 Clonazepam (*Crx) 0.5 Mg Tablet PO BID@1400,2100 JERRY Clonazepam 1 mg 01/29/25 09:00 Clonazepam (*Crx) 0.5 Mg Tablet PO QAM JERRY Diazepam 5 mg 01/29/25 05:01 Diazepam Inj (*Crx) 10 Mg/2 Ml Syringe IV PUSH QAM PRN Anxiety Enoxaparin Sodium 40 mg 01/30/25 09:00 Enoxaparin 40 Mg/0.4 Ml Syringe SUB-Q DAILY JERRY Hydralazine HCl 5 mg 01/29/25 03:05 Hydralazine Hcl 20 Mg/Ml Vial IV PUSH Q8H PRN Blood Pressure - High Hydrochlorothiazide 25 mg 01/29/25 09:00 Hydrochlorothiazide 25 Mg Tablet PO On Hold: 01/29/25 11:08 QAM JERRY Hydroxyzine HCl 25 mg 01/29/25 08:23 Hydroxyzine Hcl 25 Mg Tablet PO DAILY PRN Anxiety Losartan Potassium 100 mg 01/29/25 09:00 Losartan Potassium 50 Mg Tablet PO QAM [facility] Metoprolol Tartrate 25 mg 01/29/25 09:00 Metoprolol Tartrate 25 Mg Tablet PO TID [facility] Mirtazapine 15 mg 01/29/25 21:00 Mirtazapine Soltab 15 Mg Tab.Disper SUBLINGUAL HS [facility] Pantoprazole Sodium 40 mg 01/29/25 09:00 Pantoprazole Sodium Iv 40 Mg Vial IV PUSH QAM [facility] Pantoprazole Sodium 40 mg 01/29/25 09:30 Pantoprazole 40 Mg Tablet PO On Hold: 01/29/25 09:00 BID [facility] Sodium Chloride 1,000 mg 01/30/25 17:00 Sodium Chloride 500 Mg Tablet PO BID [facility] Radiology Results: ITS Impressions Chest X-Ray 01/29/25 18:29 Impression: 1: Subsegmental atelectasis left mid chest. Modified Barium Swallow 01/30/25 12:40 IMPRESSION: Patient tolerated regular consistency oral feedings in the upright position. Please correlate with speech pathologist findings and specific feeding recommendations. Renal Ultrasound 01/30/25 13:38 Impression: 1: Unremarkable renal ultrasound. No stones, masses or hydronephrosis. Labs Labs: Laboratory Tests 01/30/25 04:48 02/01/25 04:12 Calcium 8.8 Total Bilirubin < 0.1 L AST 28 ALT 28 Alkaline Phosphatase 67 Total Protein 5.8 L Albumin 3.5
--- NOTE | 2025-02-01 12:32 | P.PNNP_ITS ---
Progress Note: A&P Assessment and Plan (1) Hyponatremia: Code(s): E87.1 - Hypo-osmolality and hyponatremia Status: Acute Assessment and Plan: * slow improvemet * acute on chronic * labs ~ 1 month ago (December 2024) demonstrated a sodium of 136mmol/L * review of labs demonstrate sodium runs around 130 - 136mmol/L as far back as 2021 (with occassional readings below 130) * multiple risk factors: * urinary retention * HCTZ use * previous/current psychiatric medications * excessive free water intake (due to dysphagia issues) * PPI use * prerenal factors (diminished oral intake due to dysphagia) * other(?) * hold HCTZ for now * oin salt tabs + fluid restriction * evaluation to date noted: * urine electrolytes prerenal * TSH okay * cortisol lowish -- cosyntropin stimulation test okay * serum osmolality 239; urine osmolality 120 * SPEP and UPEP without M-spike * follow trend of repeat sodiums (2) Urinary retention: Code(s): R33.9 - Retention of urine, unspecified Status: Acute Assessment and Plan: * reported chronic history * s/p bladder stimulator placed by urologist several years ago.. * worsening urinary retention for about a month with worsening in the past 24 hours prior to admission * s/p chavarria catheter placement in ER * Urology following with recommendations noted (3) Dysphagia: Code(s): R13.10 - Dysphagia, unspecified Status: Acute Assessment and Plan: * also somewhat a chronic issue * status post esophageal dilatation at [facility] in 12/2024 without improvement * seen by Speech Therapy: * passed MBS * GI recommendations noted * advance diet as tolerated (4) Hypertension: Code(s): I10 - Essential (primary) hypertension Status: Acute Assessment and Plan: * reasonable control * holding HCTZ due to #1 * follow trend of hemodynamics Not opposed to discharge from renal perspective if otherwise medically stable; hold HCTZ on discharge and continue salt tabs + fluid restriction with repeat labs by PCP with plan to wean off salt tabs as able. Will continue to follow. L Subjective Date/time seen: 02/01/25 12:32 Interval history: Follow-up for acute on chronic hyponatremia. No apparent distress noted at this time; chavarria catheter removed and waiting for her to void on her own; sodium continues to slowly improve with current therapy/interventions; weaned off IVFs; no other issues/events overnight or earleri this morning. Exam 2 Narrative: General: WD/WN female in NAD Heart: normal S1 and S2; no rub Lungs: clear to auscultation Abdomen: soft, nontender, nondistended, positive bowel sounds Extremities: no cyanosis or clubbing; no edema Skin: no rash or nodules Objective Data Vital Signs Vital Signs: Vital Signs Temp Pulse Resp BP Pulse Ox 02/01/25 08:06 90 02/01/25 05:22 98.1 F 84 18 147/75 H 97 01/31/25 20:22 98.2 F 76 20 138/66 96 01/31/25 16:39 74 Intake/Output Intake/Output: Intake & Output 01/29/25 01/30/25 01/31/25 02/01/25 23:59 23:59 23:59 23:59 Intake Total 0040 657 4455.0 1490 Output Total 4075 3400 2650 2500 Balance -2235 -2820 730.0 -1010 Meds/Results Medications: Active Medications Generic Name Dose Route Start Trade Name Freq PRN Reason Stop Artificial Tears 2 drop 01/29/25 03:12 Artificial Tears Ophth Soln 15 Ml Bottle EACH EYE Q4-6H PRN Dry Eye(s) Buspirone HCl 30 mg 01/29/25 09:00 Buspirone Hcl 10 Mg Tablet PO BID JERRY Clonazepam 0.5 mg 01/29/25 14:00 Clonazepam (*Crx) 0.5 Mg Tablet PO BID@1400,2100 JERRY Clonazepam 1 mg 01/29/25 09:00 Clonazepam (*Crx) 0.5 Mg Tablet PO QAM JERRY Diazepam 5 mg 01/29/25 05:01 Diazepam Inj (*Crx) 10 Mg/2 Ml Syringe IV PUSH QAM PRN Anxiety Enoxaparin Sodium 40 mg 01/30/25 09:00 Enoxaparin 40 Mg/0.4 Ml Syringe SUB-Q DAILY JERRY Hydralazine HCl 5 mg 01/29/25 03:05 Hydralazine Hcl 20 Mg/Ml Vial IV PUSH Q8H PRN Blood Pressure - High Hydrochlorothiazide 25 mg 01/29/25 09:00 Hydrochlorothiazide 25 Mg Tablet PO On Hold: 01/29/25 11:08 QAM [facility] Hydroxyzine HCl 25 mg 01/29/25 08:23 Hydroxyzine Hcl 25 Mg Tablet PO DAILY PRN Anxiety Losartan Potassium 100 mg 01/29/25 09:00 Losartan Potassium 50 Mg Tablet PO QAM [facility] Metoprolol Tartrate 25 mg 01/29/25 09:00 Metoprolol Tartrate 25 Mg Tablet PO TID [facility] Mirtazapine 15 mg 01/29/25 21:00 Mirtazapine Soltab 15 Mg Tab.Disper SUBLINGUAL HS [facility] Pantoprazole Sodium 40 mg 01/29/25 09:00 Pantoprazole Sodium Iv 40 Mg Vial IV PUSH QAM [facility] Pantoprazole Sodium 40 mg 01/29/25 09:30 Pantoprazole 40 Mg Tablet PO On Hold: 01/29/25 09:00 BID [facility] Sodium Chloride 1,000 mg 01/30/25 17:00 Sodium Chloride 500 Mg Tablet PO BID [facility] Radiology Results: ITS Impressions Chest X-Ray 01/29/25 18:29 Impression: 1: Subsegmental atelectasis left mid chest. Modified Barium Swallow 01/30/25 12:40 IMPRESSION: Patient tolerated regular consistency oral feedings in the upright position. Please correlate with speech pathologist findings and specific feeding recommendations. Renal Ultrasound 01/30/25 13:38 Impression: 1: Unremarkable renal ultrasound. No stones, masses or hydronephrosis. Labs Labs: Laboratory Tests 01/30/25 04:48 02/01/25 04:12 Calcium 8.8 Total Bilirubin < 0.1 L AST 28 ALT 28 Alkaline Phosphatase 67 Total Protein 5.8 L Albumin 3.5
[2025-02-01 13:08] LABS: Albumin, U 61.7 % (.); Alpha-1-Globulin, U 4.4 % (.); Alpha-2-Globulin, U 8.3 % (.); Beta Globulin, U 17.8 % (.); Gamma Globulin, U 7.8 % (.)
[2025-02-01 13:17] VITALS: PULSE 90
[2025-02-01] MEDS: clonazePAM (*CRX) 0.5 MG TABLET PO (13:17)
--- NOTE | 2025-02-01 13:22 | P.DS_ITS ---
DS: Admitting Diagnosis Discharge Date 02/01 Admitting Diagnosis acute urinary retention DS: Discharge Diagnosis Discharge Diagnosis (1) Acute hyponatremia: Code(s): E87.1 - Hypo-osmolality and hyponatremia Status: Acute (2) Urinary retention: Code(s): R33.9 - Retention of urine, unspecified Status: Acute (3) DAVID (generalized anxiety disorder): Code(s): F41.1 - Generalized anxiety disorder Status: Acute (4) MDD (major depressive disorder), recurrent episode, severe: Qualifiers: Psychotic features: without psychotic features Qualified Code(s): F33.2 - Major depressive disorder, recurrent severe without psychotic features Code(s): F33.2 - Major depressive disorder, recurrent severe without psychotic features Status: Acute (5) Dysphagia: Code(s): R13.10 - Dysphagia, unspecified Status: Acute (6) Hypertension: Code(s): I10 - Essential (primary) hypertension Status: Acute DS: Summary Hospital Course Hospital Course: A 59-year-old female with H severe anxiety and panic disorder per self report, chronic hyponatremia baseline around 130, chronic urinary retention with a bladder stimulator, chronic dysphagia status post esophageal dilatation at [facility] in 12/2024, hypertension who presents to [facility] ER on 01/28/2025 complaining of acute urinary retention. She moved to the local [facility] in 09/2024, many years ago she had a bladder stimulator placed by urologist and she has been able to urinate and has not had issues since then. For about a month now her urinary retention has worsened and over the past 24 hours she has not been able to urinate. She felt as if her bladder had increased pressure. She has an anxious affect reports she thinks her severe anxiety is causing her urinary retention. Of note, she had an esophageal dilatation at [facility] 1 month prior with the GI doctor for chronic dysphagia and she reports since then her dysphagia has not improved, she contacted the GI doctor and states he did not seem to be concerned. However, her dysphagia is reportedly so bad that for the past week she has only been drinking fruit smoothies. She she feels as if she is slightly dehydrated. She was evaluated and she passed swallow study. Urology was following with her: attempt to do voiding trial once sodium is better and f/u with urology as an outpt. Voiding trials are done and pt voided- so will discharge with no chavarria cath. Na imporved- 129- ok for discharge from nephrology. Will continue sodium tabs for few more days and recheck labs-then close f/u with PCP needed. Holding HCTZ for now Status at Discharge Functional status at discharge: independent ambulation Time Spent with Patient Time attestation: Total time spent providing and/or coordinating discharge services: Time spent: Greater than 30 minutes Exam Narrative: General: female in no acute respiratory distress who is nontoxic appearing, sitt ing up in bed. HEENT: Normocephalic. Atraumatic. Extraocular movement intact. Sclera clear and anicteric. No facial asymmetry. Chest: Lungs are clear to auscultation bilaterally. No wheezes or crackles. CV: Heart was regular rate and rhythm. Abd: Abdomen was soft. Nontender. Nondistended. Positive bowel sounds. Ext: No clubbing, cyanosis, or edema. DP pulses bilaterally. Neuro: Patient is alert and oriented x4. Strength is 5/5 in both upper and lower extremities. Cranial nerves 2-12 are intact. Speech is clear. Const: General: comfortable and no acute distress Other: A&O x3, anxious affect HENMT: Mouth: Yes moist mucous membranes Eyes: Pupils: Equal, round and reactive pupils present Neck: Neck: supple Resp: Effort & Inspection: normal respiratory effort Auscultation: clear to auscultation bilaterally Cardio: Rate: regular rate Rhythm: regular rhythm GI: Inspection: non-distended : General: Yes bladder normal to palpation Bimanual exam- vagina & uterus: bladder normal to palpation Neuro: Cranial nerves: Yes Equal, round and reactive pupils present Motor exam (neuro): 5/5 motor strength present throughout Extrem: General: edema (Trace pitting edema bilateral lower extremities below the knees) DS: Data Data Completed and Pending Labs on day of discharge: Labs from last 24 hours 02/01/25 01/31/25 01/30/25 04:12 20:25 05:21 Sodium 129 L 127 L Potassium 4.1 Chloride 99 Carbon Dioxide 25 Anion Gap 5 BUN 11 Creatinine 0.65 L Estim Creat Clear Calc 83 Estimated GFR > 60 Glucose 96 Calcium 8.8 Total Bilirubin < 0.1 L AST 28 ALT 28 Alkaline Phosphatase 67 Total Protein 5.8 L Albumin 3.5 Urine Total Protein 14.7 Urine Albumin (PEP) 61.7 U Hpsos-1-Kmzoadns 4.4 U Lyydp-3-Evspmoyy 8.3 U Beta Globulin 17.8 U Gamma Globulin 7.8 U Random M-Dontrell (%) Not observed Urine PEP Note Comment Urine Immunofixation Comment Discharge Plan Discharge Attending physician on discharge: Alexandra Beaulieu Consulting providers: Darío Quintanilla; Edgar Henao; Hemal Bush; Carola Paz Discharging Clinician: Ania Quiros Patient Disposition: Home Activity: september shower Diet: heart healthy Discharge Instructions: You were admitted for urinary retention, low sodium level, difficulties with swallowing. Speech therapy evaluated you and you passed swallow study. Urology was following: attempt to do voiding trial once sodium is better and f/u with urology as an outpt. Voiding trials are done and you voided ok- so will discharge with no chavarria cath.Please f/u with urology for further evaluation. Na improved- 129- ok for discharge from nephrology. Please continue sodium tablets for few more days and will recheck labs-then close f/u with PCP needed about sodium level. Patient Instructions: Antibiotic Form, Hyponatremia (DC), Suicide Prevention (DC) Patient Language: Swiss Stand Alone Forms: General Discharge Information Follow-up/Referrals: Bright,Lei Barnett DO [Primary Care Provider, Unknown] - 1 Week Mohini Gifford PA-C [Physician Chemist Proteins, Urology] - 2 Weeks Problems: Urinary retention Discharge Medications: New tolvaptan 15 mg tablet 15 mg PO DAILY Qty: 5 0RF tolvaptan 15 mg tablet 15 mg PO DAILY Qty: 5 0RF Continued buspirone 10 mg tablet 30 mg PO BID Rx Instructions: Crush medication. clonazepam 0.5 mg tablet 0.5 mg PO .COMPLEX Rx Instructions: Clonazepam 0.5 mg orally every afternoon and at bedtime. Crush medication. losartan 50 mg tablet 100 mg PO QAM omeprazole 20 mg tablet,disintegrat, delay rel 20 mg PO BID Lopressor 10 mg/mL solution 25 mg PO TID clonazepam 1 mg tablet 1 mg PO QAM Rx Instructions: Crush medication. Vraylar 1.5 mg capsule 1.5 mg PO QAM Inzirqo 10 mg/mL suspension for reconstitution 25 mg PO QAM mirtazapine 15 mg tablet,disintegrating 15 mg translingual HS clomipramine 25 mg capsule 25 mg PO HS Rx Instructions: Open capsule and sprinkle on apple sauce. hydroxyzine HCl 25 mg tablet 25 mg PO DAILY PRN (Reason: anxiety) carboxymethylcellulose sodium [Refresh Tears] 0.5 % drops 2 drp EACH EYE Q4-6H PRN (Reason: dry eye(s)) Other Ambulatory Orders: Comprehensive Metabolic Panel (Routine) Timeframe: 1 Week Location: Determined by Patient Ordered By: Ania Quiros Date of admission: 01/29/25 00:39 Primary Care Provider: Bright,Lei Barnett Admitting Provider: Alexandra Beaulieu Attending physician on admission: Alexandra Beaulieu Condition: Improved Quality VTE Prophylaxis VTE prophylaxis: pharmacologic ordered
[2025-02-01 14:08] LABS: Immunoglobulin A, Qn 175 mg/dL (87-352); Immunoglobulin G, Qn 825 mg/dL (586-1602); Immunoglobulin M, Qn 81 mg/dL (26-217)
== END 2025-02-01 14:20 | disposition home or self-care (01) | DRG 696 ==
LOC: ANHED 01-29 00:23 → ANHIMU 01-29 01:13 → ANHICU 01-29 04:56 → ANH2MED 01-29 16:24
PROVIDERS: Internal Medicine Nephrology; Student in an Organized Health Care Education/Training Program; Admitting Provider General Practice; Emergency Provider Emergency Medicine; PCP Family Medicine; Visit Provider Nurse Practitioner
DX: R33.9 Retention of urine, unspecified (principal); E87.1 Hypo-osmolality and hyponatremia; F33.2 Major depressive disorder, recurrent severe without psychotic features; R45.851 Suicidal ideations; R13.10 Dysphagia, unspecified; F42.9 Obsessive-compulsive disorder, unspecified; F41.1 Generalized anxiety disorder; I10 Essential (primary) hypertension; D64.9 Anemia, unspecified; M19.90 Unspecified osteoarthritis, unspecified site; K21.9 Gastro-esophageal reflux disease without esophagitis; Z85.3 Personal history of malignant neoplasm of breast; Z96.82 Presence of neurostimulator
CPT/HCPCS: 36415; 71045; 74230; 76770; 80048; 80053; 80069; 80143; 80179; 80307; 81003; 82077; 82533; 82570; 82784; 83735; 83930; 83935; 84155; 84156; 84165; 84166; 84295; 84300; 84443; 84540; 85025; 85027; 86334; 86335; 92526; 92610; 92611; 96360; 99285; A9270; J0834; J1650; J2470; J3360; J7030

== ENCOUNTER 2025-02-04 08:56 | Emergency (ER) | payer OTHER, SELFPAY ==
--- OUTSIDE RECORDS SUMMARY | 2025-02-04 08:58 | XMS_ITS | Encounter Summary ---
Author Organization [facility] Facility Care Team Providers Care Pilot Boat Captain Name Role Phone RENÉE Berry Jr., Barney Odom Primary Care Provide r Jhonathan Gonzalez MD Unavailable [phone] Lei Novoa DO Primary Care Provider Encounter Details Date Type Department Care Team (Latest Contact Info) Description 06/23/2016 Orders Only [facility] CLINCONV ProviderLesli MD [address] [place] [address] Social History Tobacco Use Types Packs/Day Years Used Date Smoking Tobacco: Never Assessed Alcohol Use Standard Drinks/Week Comments No 0 (1 standard drink = 0.6 oz pur e alcohol) Comments Unknown Sex and Gender Information Value Date Recorded Sex Assigned at Not on file Legal Sex Female 1:17 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 TEACHER Gender Identity Not on file Sexual Orientation Not on file documented as of this encounter Plan of Treatment Not on file documented as of this encounter Procedures Procedure Name Priority Date/Time Associated Diagnosis Comments PROCEDURE - RESULT 06/23/2016 12 :00 AM DRAFTING TEACHER PROCEDURE - RESULT 06/23/2016 12 :00 AM DRAFTING TEACHER PROCEDURE - RESULT 06/23/2016 12 :00 AM DRAFTING TEACHER SCAN - LABS 06/23/2016 12:00 AM DRAFTING TEACHER documented in this encounter Results * PROCEDURE - RESULT (06/23/2016 12:00 AM DRAFTING TEACHER) Narrative 06/23/2016 12:00 AM DRAFTING TEACHER Ordered by an unspecified provider. [facility] Provider MD Final Res ult * PROCEDURE - RESULT (06/23/2016 12:00 AM DRAFTING TEACHER) Narrative 06/23/2016 12:00 AM DRAFTING TEACHER Ordered by an unspecified provider. [facility] Provider Final Res ult * PROCEDURE - RESULT (06/23/2016 12:00 AM DRAFTING TEACHER) Narrative 06/23/2016 12:00 AM DRAFTING TEACHER Ordered by an unspecified provider. [facility] Provider Final Res ult * SCAN - LABS (06/23/2016 12:00 AM DRAFTING TEACHER) Narrative 06/23/2016 12:00 AM DRAFTING TEACHER Ordered by an unspecified provider. [facility] Provider Final Res ult documented in this encounter Visit Diagnoses Not on filedocumented in this encounter Care Teams Pilot Boat Captain Relationship Specialty Start Date End Date Barney Berry Jr., PA [address] [place] [address] PCP - General 07/29/16 10/29/24 Lei Novoa DO [address] [place] [address] PCP - General Family Medicine 10/30/24 Jhonathan Gonzalez MD [address] [place] [address] Consulting Physician Obstetrics and Gynecology 10/27/24 documented as of this encounter
--- OUTSIDE RECORDS SUMMARY | 2025-02-04 08:58 | XMS_ITS | Encounter Summary ---
Author Organization [facility] Address [address] [place] [address] Care Team Providers Care Concert Pianist Name Role Phone Lei Novoa DO Primary Care Provider [phone] Encounter Details Date Type Department Care Team (Late st Contact Info) Description 10/14/2020 Lab Requisition [facility] Care DermPath Lab [address] [place] [id number] Titus Ruby MD [address] [place] [address] Social History Tobacco Use Types Packs/Day Years Used Date Smoking Tobacco: Never Assessed Comments Unknown Sex and Gender Information Value Date Recorded Sex Assigned at Not on file 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 Gender Identity Not on file Sexual Orientation Not on file documented as of this encounter Plan of Treatment Not on file documented as of this encounter Procedures Procedure Name Priority Date/Time Associated Diagnosis Comments DERMATOPATHOLOGY Routine 10/10/2020 12:0 0 AM CDT documented in this encounter Results * DERMATOPATHOLOGY (10/10/2020 12:00 AM CDT) Case Report Dermatopathology Report Case: [id number] Authorizing Provider: Titus Ruby MD Collected: 10/10/2020 12:00 AM Ordering Location: [facility] Care DermPath Lab Received: 10/14/2020 06:15 AM Pathologist: Fawad Fink MD Specimen: Skin, right nasal sw 4:37 PM CDT DERMATOPATHOLOGY LABORATORY Final Diagnosis Specimen A. SKIN, right nasal sw: BASAL CELL CARCINOMA, NODULAR TYPE (C44.311) 4:37 PM CDT DERMATOPATHOLOGY LABORATORY at 1637 CDT Clinical History AK vs BCCA. Path#[id number] 4:37 PM CDT DERMATOPATHOLOGY LABORATORY Gross Description [...] characteristic determined by the Dermatopathology Laboratory at [facility], directed by Dr. Ericka Fink. These tests need not be, and therefore are not, approved by the [place] Food and Drug Administration. The tests are used for clinical purposes. Billing Codes Specimen Charges Stain Charges 99643 1 1 4:37 PM CDT DERMATOPATHOLOGY LABORATORY Embedded Images 4:37 PM CDT DERMATOPATHOLOGY LABORATORY Pathology/Cytolog y TISSUE SPECIMEN FROM SKIN / Unknown 10/10/2020 10/14/2020 6:15 AM CDT us Titus Ruby MD LAB - PATHOLOGY/CYTOLOGY ORDER DEVIN Final Result DERMATOPATHOLOGY LABORATORY [facility] - Department of Dermatology [address], [address] [phone] documented in this encounter Visit Diagnoses Not on filedocumented in this encounter Care Teams Concert Pianist Relationship Specialty Start Date End Date Lei Novoa DO [address] [address] PCP - General Family Medicine 10/03/24 documented as of this encounter
--- OUTSIDE RECORDS SUMMARY | 2025-02-04 08:58 | XMS_ITS | Encounter Summary ---
Author Organization [facility] Facility Care Team Providers Care School Coordinator Name Role Phone RENÉE Berry Jr., Barney Odom Primary Care Provide r Jhonathan Gonzalez MD Unavailable [phone] Lei Novoa DO Primary Care Provider Encounter Details Date Type Department Care Team (Latest Contact Info) Description 05/12/2016 Orders Only [facility] CLINCONV ProviderLesli MD [address] [place] [address] Social History Tobacco Use Types Packs/Day Years Used Date Smoking Tobacco: Never Assessed Alcohol Use Standard Drinks/Week Comments No 0 (1 standard drink = 0.6 oz pur e alcohol) Comments Unknown Sex and Gender Information Value Date Recorded Sex Assigned at Not on file Legal Sex Female 1:17 AM BAKERY CHEF Gender Identity Not on file Sexual Orientation Not on file documented as of this encounter Plan of Treatment Not on file documented as of this encounter Procedures Procedure Name Priority Date/Time Associated Diagnosis Comments PROCEDURE - RESULT 05/12/2016 12 :00 AM BAKERY CHEF PROCEDURE - RESULT 05/12/2016 12 :00 AM BAKERY CHEF documented in this encounter Results * PROCEDURE - RESULT (05/12/2016 12:00 AM BAKERY CHEF) Narrative 05/12/2016 12:00 AM BAKERY CHEF Ordered by an unspecified provider. us Historical Provider MD Final Res ult * PROCEDURE - RESULT (05/12/2016 12:00 AM BAKERY CHEF) Narrative 05/12/2016 12:00 AM BAKERY CHEF Ordered by an unspecified provider. us Historical Provider Final Res ult documented in this encounter Visit Diagnoses Not on filedocumented in this encounter Care Teams School Coordinator Relationship Specialty Start Date End Date Barney Berry Jr., PA [address] [place] [address] PCP - General 07/29/16 10/29/24 Lei Novoa DO [address] [place] [address] PCP - General Family Medicine 10/30/24 Jhonathan Gonzalez MD [address] [address] Consulting Physician Obstetrics and Gynecology 10/27/24 documented as of this encounter
--- OUTSIDE RECORDS SUMMARY | 2025-02-04 08:58 | XMS_ITS | Encounter Summary ---
Author Organization [facility] Address [address] [place] [address] Phone Care Team Providers Care Enlisted Aircrew/Aerial Observer/Gunner Name Role Phone RENÉE Berry Jr., Barney Odom Primary Care Provide r Jhonathan Gonzalez MD Unavailable [phone] Lei Novoa DO Primary Care Provider Encounter [...] on file Legal Sex Female 1:17 AM AUDIOMETRIC TECHNICIAN Gender Identity Not on file Sexual [...] on filedocumented in this encounter Care Teams Enlisted Aircrew/Aerial Observer/Gunner Relationship Specialty Start Date End Date Barney Berry Jr., PA [address] [address] PCP - General 07/29/16 10/29/24 Lei Novoa DO [address] [address] PCP - General Family Medicine 10/30/24 Jhonathan Gonzalez MD [address] [address] Consulting Physician Obstetrics and Gynecology 10/27/24 documented as of this encounter
--- OUTSIDE RECORDS SUMMARY | 2025-02-04 08:58 | XMS_ITS | Clinical Summary ---
Author Organization [facility] Address [address] [place] [address] Care Team Providers Care Manager Of Warehouse Name Role Phone Lei Novoa DO Primary Care Provider [phone] Source Comments [facility],non-owned Affiliates and Associated Physician Practices is amultiple site organization consisting of ambulatory clinics and hospital sitesin [place], [place], [place] and [place]. This disclosure is being madepursuant to the Care Everywhere program and may not contain all information available regarding this patient. Last updated 18.[facility] [place] Allergies Active Allergy Reactions Criticality Noted Date [...] on file Legal Sex Female 7:07 PM SAFETY AND HEALTH CONSULTANT Gender Identity Not on file Sexual Orientation [...] patient's age to complete this topic Insurance [facility] Care Teams Manager Of Warehouse Relationship Specialty Start Date End Date Lei Novoa DO [address] [facility] [address] [place], [place] [address] PCP - General Family Medicine 10/03/24
--- OUTSIDE RECORDS SUMMARY | 2025-02-04 08:58 | XMS_ITS | Clinical Summary ---
Author Organization [facility] Address [facility] [place] [address] Care Team Providers Care Safety Lamp Keeper Name Role Phone Unavailable Primary Care Provider [...]
--- OUTSIDE RECORDS SUMMARY | 2025-02-04 08:58 | XMS_ITS | Encounter Summary ---
Author Organization [facility] Facility Care Team Providers Care Logistics Manager Name Role Phone RENÉE Berry Jr., Barney Odom Primary Care Provide r Jhonathan Gonzalez MD Unavailable [phone] Lei Novoa DO Primary Care Provider Encounter Details Date Type Department Care Team (Latest Contact Info) Description 08/04/2017 Orders Only [facility] CLINCONV ProviderLesli MD [address] [place] [address] Social History Tobacco Use Types Packs/Day Years Used Date Smoking Tobacco: Never Alcohol Use Standard Drinks/Week Comments No 0 (1 standard drink = 0.6 oz pur e alcohol) Comments Unknown Sex and Gender Information Value Date Recorded Sex Assigned at Not on file Legal Sex Female 1:17 AM BATCHING OPERATOR Gender Identity Not on file Sexual [...] on filedocumented in this encounter Care Teams Logistics Manager Relationship Specialty Start Date End Date Barney Berry Jr., PA [address] [place] [address] PCP - General 07/29/16 10/29/24 Lei Novoa DO [address] [place] [address] PCP - General Family Medicine 10/30/24 Jhonathan Gonzalez MD [facility] [address] [address] Consulting Physician Obstetrics and Gynecology 10/27/24 documented as of this encounter
--- OUTSIDE RECORDS SUMMARY | 2025-02-04 08:58 | XMS_ITS | Encounter Summary ---
Author Organization [facility] Facility Care Team Providers Care Disc Inspector Name Role Phone RENÉE Berry Jr., Barney Odom Primary Care Provide r Jhonathan Gonzalez MD Unavailable [phone] Lei Novoa DO Primary Care Provider Encounter Details Date Type Department Care Team (Latest Contact Info) Description 06/19/2016 Orders Only [facility] CLINCONV Provider, MD Lesli [address] [place] [address] Social History Tobacco Use Types Packs/Day Years Used Date Smoking Tobacco: Never Assessed Alcohol Use Standard Drinks/Week Comments No 0 (1 standard drink = 0.6 oz pur e alcohol) Comments Unknown Sex and Gender Information Value Date Recorded Sex Assigned at Not on file Legal Sex Female 1:17 AM WET MILLING WHEEL OPERATOR Gender Identity Not on file Sexual Orientation Not on file documented as of this encounter Plan of Treatment Not on file documented as of this encounter Procedures Procedure Name Priority Date/Time Associated Diagnosis Comments PROCEDURE - RESULT 06/19/2016 12 :00 AM WET MILLING WHEEL OPERATOR documented in this encounter Results * PROCEDURE - RESULT (06/19/2016 12:00 AM WET MILLING WHEEL OPERATOR) Narrative 06/19/2016 12:00 AM WET MILLING WHEEL OPERATOR Ordered by an unspecified provider. Historical Provider Final Res ult documented in this encounter Visit Diagnoses Not on filedocumented in this encounter Care Teams Disc Inspector Relationship Specialty Start Date End Date Barney Berry Jr., PA [address] [place] [address] PCP - General 07/29/16 10/29/24 Lei Novoa DO [address] [place] [address] PCP - General Family Medicine 10/30/24 Jhonathan Gonzalez MD [facility] [address] [address] Consulting Physician Obstetrics and Gynecology 10/27/24 documented as of this encounter
--- OUTSIDE RECORDS SUMMARY | 2025-02-04 08:58 | XMS_ITS | Encounter Summary ---
Author Organization [facility] Facility Care Team Providers Care Olive Knocker Name Role Phone RENÉE Berry Jr., Barney Odom Primary Care Provide r Jhonathan Gonzalez MD Unavailable [phone] Lei Novoa DO Primary Care Provider Encounter Details Date Type Department Care Team (Latest Contact Info) Description 09/30/2015 Orders Only [facility] CLINCONV Provider, MD Lesli [address] [place] [address] Social History Tobacco Use Types Packs/Day Years Used Date Smoking Tobacco: Never Assessed Alcohol Use Standard Drinks/Week Comments No 0 (1 standard drink = 0.6 oz pur e alcohol) Comments Unknown Sex and Gender Information Value Date Recorded Sex Assigned at Not on file Legal Sex Female 1:17 AM INVERTER AND CLIPPER Gender Identity Not on file Sexual Orientation [...] on filedocumented in this encounter Care Teams Olive Knocker Relationship Specialty Start Date End Date Barney Berry Jr., PA [address] [address] PCP - General 07/29/16 10/29/24 Lei Novoa DO [address] [place] [address] PCP - General Family Medicine 10/30/24 Jhonathan Gonzalez MD [address] [address] Consulting Physician Obstetrics and Gynecology 10/27/24 documented as of this encounter
--- OUTSIDE RECORDS SUMMARY | 2025-02-04 08:58 | XMS_ITS | Encounter Summary ---
Author Organization [facility] Address [address] [place] [address] Care Team Providers Care Student Accounts Coordinator Name Role Phone Jhonathan Gonzalez MD Unavailable [phone] Lei Novoa DO Primary Care Provider Encounter Details Date Type Department Care Team (Latest Contact Info) Description 12/27/2024 Results Follow-Up [facility] Gastroenterology at [address] [place] [address] Brandon Kramer MD [address] [place] [address] [address] [place] [address] Surgical pathology Social History Tobacco Use Types [...] on file Legal Sex Female 1:17 AM RX SPECIALIST Gender Identity Not on file Sexual Orientation Not on file documented as of this encounter Plan of Treatment Not on file documented as of this encounter Visit Diagnoses Not on filedocumented in this encounter Care Teams Student Accounts Coordinator Relationship Specialty Start Date End Date Lei Novoa DO [address] [place] [address] PCP - General Family Medicine 10/30/24 Jhonathan Gonzalez MD [address] [address] Consulting Physician Obstetrics and Gynecology 10/27/24 documented as of this encounter
--- OUTSIDE RECORDS SUMMARY | 2025-02-04 08:58 | XMS_ITS | Encounter Summary ---
Author Organization [facility] Healthcare Address [address] [place] [address] Care Team Providers Care Gi Tech Name Role Phone Jhonathan Gonzalez MD Unavailable [phone] Lei Novoa DO Primary Care Provider Encounter Details Date Type Department Care Team (Late st Contact Info) Description 01/29/2025 Orders Only [facility] Health Information Management [address] [place] [id number] Letha Milton, KEZIA [address] [facility] [address] [address] Social History Tobacco Use Types Packs/Day Years [...] on file Legal Sex Female 1:17 AM DIGITAL ARTIST Gender Identity Not on file Sexual Orientation Not on file documented as of this encounter Plan of Treatment Not on file documented as of this encounter Procedures Procedure Name Priority Date/Time Associated Diagnosis Comments SCAN - RADIOLOGY/IMAGING 01/29/2025 documented in this encounter Results * SCAN - RADIOLOGY/IMAGING (01/29/2025) Anatomical Region Laterality Modality Other us Letha Milton TOP CARRIER Final Resu lt documented in this encounter Visit Diagnoses Not on filedocumented in this encounter Care Teams Gi Tech Relationship Specialty Start Date End Date Lei Novoa DO [address] [address] PCP - General Family Medicine 10/30/24 Jhonathan Gonzalez MD [address] [facility] [address] [place] [address] [place] [address] Consulting Physician Obstetrics and Gynecology 10/27/24 documented as of this encounter
--- OUTSIDE RECORDS SUMMARY | 2025-02-04 08:58 | XMS_ITS | Encounter Summary ---
Author Organization [facility] Facility Care Team Providers Care Author Agent Name Role Phone RENÉE Berry Jr., Barney Odom Primary Care Provide r Jhonathan Gonzalez MD Unavailable [phone] Lei Novoa DO Primary Care Provider Encounter Details Date Type Department Care Team (Latest Contact Info) Description 09/14/2017 Orders Only [facility] ProviderLesli MD [address] [place] [id number] Social History Tobacco Use Types Packs/Day Years Used Date Smoking Tobacco: Never Alcohol Use Standard Drinks/Week Comments No 0 (1 standard drink = 0.6 oz pur e alcohol) Comments Unknown Sex and Gender Information Value Date Recorded Sex Assigned at Not on file 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
--- OUTSIDE RECORDS SUMMARY | 2025-02-04 08:58 | XMS_ITS | Encounter Summary ---
Author Organization [facility] Facility Care Team Providers Care Emergency Department Technician Name Role Phone RENÉE Berry Jr., Barney Odom Primary Care Provide r Jhonathan Gonzalez MD Unavailable [phone] Lei Novoa DO Primary Care Provider Encounter Details Date Type Department Care Team (Latest Contact Info) Description 01/21/2017 Orders Only [facility] ProvidereLsli MD [address] [place] [address] Social History Tobacco Use Types Packs/Day Years Used Date Smoking Tobacco: Never Assessed Alcohol Use Standard Drinks/Week Comments No 0 (1 standard drink = 0.6 oz pur e alcohol) Comments Unknown Sex and Gender Information Value Date Recorded Sex Assigned at Not on file 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
--- OUTSIDE RECORDS SUMMARY | 2025-02-04 08:58 | XMS_ITS | Encounter Summary ---
Author Organization [facility] Facility Care Team Providers Care Chrome Cleaner Name Role Phone RENÉE Berry Jr., Barney Odom Primary Care Provide r Jhonathan Gonzalez MD Unavailable [phone] Lei Novoa DO Primary Care Provider Encounter Details Date Type Department Care Team (Latest Contact Info) Description 09/03/2016 Orders Only [facility] Provider, MD Lesli [address] [place] [id number] Social History Tobacco Use Types Packs/Day Years Used Date Smoking Tobacco: Never Assessed Alcohol Use Standard Drinks/Week Comments No 0 (1 standard drink = 0.6 oz pur e alcohol) Comments Unknown Sex and Gender Information Value Date Recorded Sex Assigned at Not on file 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
--- OUTSIDE RECORDS SUMMARY | 2025-02-04 08:58 | XMS_ITS | Clinical Summary ---
Author Organization [facility] Address [address] [place] [phone] Phone Care Team Providers Care Dance Entertainer Name Role Phone Unavailable Primary Care Provider [...] (1 - 1-dose 75+ series) 10/02/2038 Insurance [facility]
--- OUTSIDE RECORDS SUMMARY | 2025-02-04 08:59 | XMS_ITS | Clinical Summary ---
Author Organization 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 Kramer Primary osteoarthritis involving multiple joints 11/29/2024 Abnormal saccadic eye movement 11/09/2024 Unspecified disorder of visual pathways 11/10/19 GERD without esophagitis 11/03/2024 Overview (11/03/2024): Chronic, [...] (11/29/2024): Added automatically from request for surgery [id number] Contracture of left Achilles tendon 09/05/2021 Overview (11/29/2024): Added automatically from request for surgery [id number] Left foot pain 09/05/2021 Overview (11/29/2024): Added automatically from request for surgery [id number] Osteophyte of left foot 09/05/2021 Overview (11/29/2024): Added automatically from request for surgery [id number] Planovalgus deformity of foot, acquired, left Overview (11/29/2024): Added automatically from request for surgery [id number] Urinary retention with incomplete bladder emptyi ng [...] due to retention and 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 -She previously tried tamsulosin for difficulty emptying but doesn't feel it helped. -She is interested in discussing Interstim device for further treatment of her urinary issues. Patient does report she will be moving to [place] early next year. I informed her it may take some time to get in with Dr. Waters and she may want to consider finding someone locally in [place] to do procedure so they can monitor locally. We will schedule her with Dr. Waters for now but she will look for urologist in [place] area. PLAN: -Schedule f/u with Dr. Waters [...] Date Type Department Care Team Description 5 Orders Only [facility] Information Management [address] [place] [address] Letha Milton, KEZIA 5 Telephone [facility] Medical [facility] Primary Care [address] [place] [address] [address] [place] [address] Lei Novoa DO [address] Tele[address] [facility] [address] [place] [phone] Jolie Saunders RN 5 Orders Only [facility] Medical Group Gastroenterology at [address] [place] [phone] Brandon Kramer MD Dysphagia, unspecified type (Primary Dx) 5 Orders Only [facility] Gastroenterology at [address] [place] [phone] Brandon Kramer MD 5 Orders Only [facility] Gastroenterology at [address] [place] [address] Brandon Kramer MD Hepatic cirrhosis, unspecified hepatic cirrhosis type, unspecified whether ascites present (HCC) (Primary Dx) 5 Results Follow-Up [facility] Gastroenterology at [address] [place] [address] Brandon Kramer MD Surgical pathology 5 Orders Only [facility] Gastroenterology at [address] [place] [address] Brandon Kramer MD Dysphagia, unspecified type (Primary Dx) 5 Orders Only [facility] Gastroenterology at [address] [place] [address] Brandon Kramer MD Dysphagia, unspecified type (Primary Dx) 5 Telephone [facility] Gastroenterology at [address] [place] [address] Brandno Kramre MD 5 4:25 PM CDT - 5 7:53 PM CDT Emergency [facility] Emergency Department [address] [place] [address] Discharge Disposition: Left without being seen 5 Telephone [facility] [address] [facility] [address] [place] [phone] Lei Novoa DO 5 Telephone [facility] Gastroenterology at [address] [place] [phone] Brandon Kramer MD 5 Orders Only [facility] Obstetrical Gynecology [address] [facility] [address] [place] [phone] Jhonathan Gonzalez MD 5 Telephone [facility] Gastroenterology at [address] [place] [address] Brandon Kramer MD 5 1:00 PM CDT Office Visit [facility] Medicine Oncology [address] [place] [phone] Deidra Shankar NP History of breast cancer 5 7:21 AM CDT Anesthesia Event [facility] [address] [place] [address] Annika Solis MD 5 7:15 AM CDT - 5 7:30 AM CDT Surgery [facility] GI Lab [address] [place] [address] Brandon Kramer MD ESOPHAGOGASTRODUODENOSCOPY BALLOON DILATION <30MM 5 5:55 AM CDT - 5 8:19 AM CDT Hospital Encounter [facility] Lab [address] [place] [address] Brandon Kramer MD Dysphagia, unspecified type Discharge Disposition: Discharge to home or self care 5 11:00 AM CDT Office Visit [facility] Medical [facility] Primary Care [address] [place] [phone] Lei Novoa DO Hypertension, essential (Primary Dx); Anxiety; Obsessive-compulsive disorder, unspecified type; Morbid obesity (HCC); Dysphagia, unspecified type 5 Telephone [facility] Medicine Ophthalmology [address] [facility] 6th [place] [address] Jai Padron MD 5 10:00 AM CDT Procedure visit [facility] Medicine Otolaryngology [address] [facility] Medicine 11th [place] [address] [place] [phone] Tanya Hadley Au.D. Disorder of visual pathways 5 Orders Only [facility] Gastroenterology at [address] [place] [phone] Brandon Kramer MD Dysphagia, unspecified type (Primary Dx) 5 Telephone [facility] [address] [place] [phone] Lei Novoa DO Recommendation Request 5 10:30 AM CDT Office Visit [facility] [address] [place] [phone] Lei Novoa DO Hypertension, essential (Primary Dx); Burning with urination; Other dysphagia; Anxiety; Moderate episode of recurrent major depressive disorder (HCC) 5 Telephone [facility] [address] [place] [address] [address] [place] [phone] Lei Novoa DO 5 Results Follow-Up [facility] Medicine Ophthalmology [address] [place] [address] 2nd Floor, [address] [place] [phone] Jai Padron MD MRI Internal Auditory Canal Brain W WO Contrast 5 11:47 AM CDT - 5 11:59 PM CDT Hospital Encounter [facility] ([facility]) [address] [place] [address] Heidi West MD Unspecified disorder of visual pathways Discharge Disposition: Discharge to home or self care 5 11:35 AM CDT - 5 11:59 PM CDT Hospital Encounter [facility] ([facility]) [address] [place] [address] Bella Caceres MD PhD Encounter for imaging to screen for metal prior to magnetic resonance imaging (MRI) Discharge Disposition: Discharge to home or self care 5 Letter (Out) [facility] [address] [place] [address] [address] [place] [phone] 5 3:45 PM CDT Lab [facility] [address] [place] [address] Unspecified disorder of visu al pathways 5 2:40 PM CDT Imaging Exam [facility] Medicine Ophthalmology [address] [place] [phone] Unspecified disorder of visu al pathways 5 2:35 PM CDT Imaging Exam [facility] Medicine Ophthalmology [address] [place] [address] [place] [address] Unspecified disorder of visu al pathways 5 2:34 PM CDT - 5 11:59 PM CDT Hospital Encounter [facility] ([facility]) [address] [place] [address] Discharge Disposition: Discharge to home or self care 5 1:30 PM CDT Office Visit [facility] Ophthalmology [address] [facility] [address] [place] [phone] Jai Padron MD Unspecified disorder of visual pathways (Primary Dx); Abnormal saccadic eye movement from Last 3 Months Immunizations Immunization Administration [...] on file Legal Sex Female 1:17 AM 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 G4,P4. LMP 04/2014. Last [...] Cancer Screening 01/06/2020 01/05/2019, 09/2015 Covid-19 Vaccine (5 2024-2 6 season) 2025 06/01/2022, 04/30/2021, 09/06/2020, Additional history exists Influenza Vaccine (#1) 2025 , 03/19/2021, 02/06/2020, Additional history exists Colon Cancer [...] Screening-Mammogram Discontinued 018 Zoster Vaccine Completed 07/11/2018, 12/2017, 10/26/2016, Additional history exists Hepatitis C Screening Completed 10/26/2024 Medical Devices Implanted Type [employer] Device Identifier Shelf Expiration Date Model / Serial / Lot Neurostimulator Bladder-12/12/2021 Implanted: 022 by Unknown, Notinfile (Quantity not on file) Neurostimulator Pelvis Medtronic Neuro [id number] / / Description:Pt reports durin g pre call that neurostimulator in bladder has been off all the time now. Pt also reported that she had endoscopy procedure before and no interventions needed during procedure Neurostimulator Bladder Lead-12/12/2021 Implanted: 022 by Unknown, Notinfile (Quantity not on file) Neurostimulator Pelvis Medtronic Neuro [id number] / / Description:Pt reports durin g pre [...] Associated Diagnosis Comments SCAN - RADIOLOGY/IMAGING 01/29/2025 TROPONIN T HIGH-SENSITIVITY 2-HOUR Timed 12/22/2024 7:04 [...] 01/05/2019 SCREENING MAMMOGRAM Routine 06/09/2017 8:07 PM E COMMERCE DEVELOPER COLONOSCOPY Routine 03/14/2015 from Last 3 Months or Most Recently Relevant to Health Maintenance Results * SCAN - RADIOLOGY/IMAGING (01/29/2025) Anatomical Region Laterality Modality Other us Letha Milton BILINGUAL MEDICAL RECEPTIONIST Final Resu lt * Troponin T high-sensitivity 2-hour (12/22/2024 7:04 PM CDT) Trop T hs 8 <=14 ng/L Comment: Interpretive Data For further hscTnT resources including the diagnostic algorithm and an aid in interpretation, copy and paste this link: https://nrl.testcatalog.org/show/hsTrop Current Interpretive Data last revised 2020. Testing performed by: [facility], [address] [place] [address]., [address] Trop T hs delta -1 ng/L KIM Comment:Testing performed by : [address] [address] Trop T hs interp Insignificant KIM Comment:Testing performed by : [address] [address] Blood 12/22/2024 7:04 PM CDT 12/22/2024 7:07 PM CDT us Fawad Díaz DO LAB BLOOD ORDERABLES Final Res ult [facility] [address] [facility] [place] [address] * XR Chest PA Lateral [...] Mendy Dumont M.D. FT: FT Report ID: [id number] Reading Location: [id number] Procedure Note Mendy Turcios MD - 12/22/2024 [...] Mendy Dumont M.D. FT: FT Report ID: [id number] Reading Location: [id number] Fawad Díaz DO IMG XR PROCEDURES Final Result * Troponin T high-sensitivity series (baseline, 2hr, 4hr, 6hr) (12/22/2024 5:15 PM CDT) Trop T hs 9 <=14 ng/L Comment: Interpretive Data For further hscTnT resources including the diagnostic algorithm and an aid in interpretation, copy and paste this link: https://nrl.testcatalog.org/show/hsTrop Current Interpretive Data last revised 2020. Testing performed by: [facility], [address] [place] [address]., [address] Blood 12/22/2024 5:15 PM CDT 12/22/2024 5:18 PM CDT Fawad Soledad Arjun DO LAB BLOOD ORDERABLES Final Res ult Performing Organization Address City/[facility] Co de Phone Number KIM [address] [place] [address] * eGFR (12/22/2024 5:15 PM CDT) eGFR [...] was last reviewed 2021. Testing performed by: [facility], [address] [place] [address]., [address] Blood 12/22/2024 5:15 PM CDT 12/22/2024 5:18 PM CDT Fawad Díaz DO LAB BLOOD ORDERABLES Final Res ult Performing Organization Address City/[facility]/ZIP Co de Phone Number KIM [address] [place] [address] * Differential, auto (12/22/2024 5:15 PM CDT) Neutrophil abs 3.70 1.50 - 6.50 K/cumm Comment:Testing performed by : [address] [address] Imm gran abs 0.01 0.00 - 0.10 K/cumm [facility] Comment:Testing performed by : [address] [address] Lymphocyte abs 1.25 0.80 - 3.30 K/cumm [facility] Comment:Testing performed by : [address] [address] Monocyte abs 0.62 0.20 - 0.80 K/cumm [facility] Comment:Testing performed by : [address] [address] Eosinophil abs 0.07 0.00 - 0.50 K/cumm [facility] Comment:Testing performed by : [address] [address] Basophil abs 0.02 0.00 - 0.10 K/cumm [facility] Comment:Testing performed by : [address] [address] Neutrophil pct 65.3 % [facility] Comment: Interpretive Data Percent cell count reference ranges are not reported, since discordance with absolute values may lead to misinterpretation of CBC data. Current Interpretive Data was last revised on 2017. Testing performed by: [address] [address] Imm gran pct 0.2 % [facility] Comment: Interpretive Data Percent cell count reference ranges are not reported, since discordance with absolute values may lead to misinterpretation of CBC data. Current Interpretive Data was last revised on 2017. Testing performed by: [address] [address] Lymphocyte pct 22.0 % [facility] Comment: Interpretive Data Percent cell count reference ranges are not reported, since discordance with absolute values may lead to misinterpretation of CBC data. Current Interpretive Data was last revised on 2017. Testing performed by: [address] [address] Monocyte pct 10.9 % KIM Comment: Interpretive Data Percent cell count reference ranges are not reported, since discordance with absolute values may lead to misinterpretation of CBC data. Current Interpretive Data was last revised on 2017. Testing performed by: [address] [address] Eosinophil pct 1.2 % [facility] Comment: Interpretive Data Percent cell count reference ranges are not reported, since discordance with absolute values may lead to misinterpretation of CBC data. Current Interpretive Data was last revised on 2017. Testing performed by: [address] [address] Basophil pct 0.4 % KIM Comment: Interpretive Data Percent cell count reference ranges are not reported, since discordance with absolute values may lead to misinterpretation of CBC data. Current Interpretive Data was last revised on 2017. Testing performed by: [address] [address] Blood 12/22/2024 5:15 PM CDT 12/22/2024 5:18 PM CDT us Fawad Díaz DO LAB BLOOD ORDERABLES Final Res ult KIM [address] [facility] Department [place] [address] * CBC with auto differential (12/22/2024 5:15 PM CDT) WBC 5.67 3.80 - 9.90 K/cumm Comment:Testing performed by : [address] [address] Hgb 12.5 11.9 - 15.5 g/dL [facility] Comment:Testing performed by : [address] [address] Hct 36.4 35.6 - 45.5 % [facility] Comment:Testing performed by : [address] [address] Plt 249 150 - 400 K/cumm [facility] Comment:Testing performed by : [address] [address] MPV 9.6 9.1 - 12.3 fL [facility] Comment:Testing performed by : [address] [address] RBC 4.39 3.90 - 5.20 M/cumm [facility] Comment:Testing performed by : [address] [address] MCV 82.9 81.3 - 96.4 fL KIM Comment:Testing performed by : [address] [address] MCH 28.5 27.1 - 33.3 pg [facility] Comment:Testing performed by : [address] [address] MCHC 34.3 32.3 - 35.7 g/dL KIM Comment:Testing performed by : [address] [address] RDW CV 12.6 11.1 - 14.9 % KIM Comment:Testing performed by : [address] [address] RDW SD 38.3 35.7 - 48.1 fL KIM Comment:Testing performed by : [address] [address] NRBC abs 0.00 0.00 - 0.01 K/cumm KIM Comment:Testing performed by : [address] [address] Blood Venous blood specimen / Unknown 12/22/2024 5:15 PM CDT 12/22/2024 5:18 PM CDT us Fawad Díaz DO LAB BLOOD ORDERABLES Final Res ult [facility] [address] [facility] Department of Laboratories [place], [place] [phone] * Comprehensive metabolic panel (12/22/2024 5:15 PM CDT) Sodium 136 135 - 145 mmol/L Comment:Testing performed by : [address], [place]., [address] Potassium, pl 3.8 3.3 - 4.9 mmol/L KIM Comment:Testing performed by : [address], [place]., [address] Chloride 100 97 - 110 mmol/L KIM Comment:Testing performed by : [address], [place]., [address] CO2 22 22 - 32 mmol/L KIM Comment:Testing performed by : [address], [place]., [address] Anion gap 14 2 - 15 mmol/L KIM Comment:Testing performed by : [address], [place]., [address] BUN 8 6 - 25 mg/dL KIM Comment:Testing performed by : [address], [place]., [address] Creatinine 0.70 0.60 - 1.10 mg/dL KIM Comment:Testing performed by : [address], [place]., [address] Glucose 96 70 - 199 mg/dL [facility] Comment: Interpretive Data Fasting glucose >/= 126 [...] was last revised 2022. Testing performed by: [address] [address] Calcium 9.3 8.5 - 10.3 mg/dL KIM Comment:Testing performed by : [address], [place]., [address] Bilirubin, total 0.2 0.1 - 1.2 mg/dL KIM Comment:Testing performed by : [address] [address] Protein, pl 7.1 6.5 - 8.5 g/dL [facility] Comment:Testing performed by : [address] [address] Albumin 4.4 3.5 - 5.0 g/dL [facility] [place] Comment:Testing performed by : [address] [address] Alk phos 94 40 - 130 Units/L KIM Comment:Testing performed by : [address] [address] ALT 29 7 - 45 Units/L KIM Comment:Testing performed by : [address] [address] AST 25 10 - 45 Units/L KIM Comment:Testing performed by : [address] [address] Blood 12/22/2024 5:15 PM CDT 12/22/2024 5:18 PM CDT us Fawad Díaz DO LAB BLOOD ORDERABLES Final Res ult KIM [address] [facility] Department of Laboratories [place], [place] [id number] * ECG 12 lead (12/22/2024 4:53 PM CDT) Ventricular Rate EKG/Min 72 BPM [facility] Atrial Rate 72 BPM [facility] NV-Interval (MSEC) 150 ms [facility] QRS-Interval (MSEC) 90 ms [facility] QT-Interval (MSEC) 394 ms [facility] QTc 431 ms [facility] P Letcher 20 degrees [facility] R Letcher -57 degrees [facility] T Letcher 20 degrees [facility] Diagnosis Normal sinus rhythm Left anterior fascicular block Abnormal ECG When compared with ECG of 05-AUG-2017 14:04, No significant change was found Confirmed by LOKI FONG M.D. ([id number]) on 12/24/2024 4:39:52 PM [facility] 12/22/2024 4:53 PM CDT 12/24/2024 4:39 PM CDT us Fawad Díaz DO ECG ORDERABLES Final Result [facility] * Surgical pathology (12/13/2024 7:28 AM CDT) Tissue (Esophageal biopsy) 12/13/2024 7:28 AM CDT Narrative PATHOLOGY [facility] - 12/14/2024 10:38 AM CDT [facility] Department of Pathology [address] [place] [address] Note to Patients: This report may contain [...] : 1965 (Age: 59) Gender: F Address: [address] [place], [place] [id number] Hospital #: [id number] Service: Gastro Location: Patient Type: [facility] OUTPATIENT Taken: 12/13/2024 Received: 12/13/2024 Accessioned: 12/13/2024 Reported: 12/14/2024 Physician(s): MD Lei Bautista D.O. Diagnosis: A. Esophagus, proximal and distal esophagus, [...] cm. Entirely submitted. Labeled A1. Jar 0. [facility]/12/13/2024 11:44 MARLEEN Chavez, [place] (ASCP) Microscopic slide review and interpretation for this case was performed at [facility], Department of Surgical Pathology, [address] [facility] [place], [place] [id number], [place] [address] [place] # [id number] us Brandon Kramer MD LAB PATHOLOGY ORDERABLES Final Result PATHOLOGY [facility] * EGD (12/13/2024 7:11 AM CDT) Anatomical Region Laterality Modality Other Narrative Procedure Note Brandon Kramer MD - 12/13/2024 7:11 AM CDT [facility] GI ENDOSCOPY Patient Name: Lyubov Steinberg Procedure Date: 12/13/2024 7:11 AM Date of : 1965 Admit Type: Outpatient Age: 59 Gender: Female Attending MD: Brandon Kramer M.D., Room: [facility] ENDOSCOPY ROOM 04 Note [...] On: 12/13/2024 7:11 AM Recognized by the [employer] for promoting quality in endoscopy Brandon Kramer MD ENDOSCOPY PROCEDURES Dorene l Result * POCT urinalysis dipstick (11/29/2024 10:24 AM CDT) Glucose, ur, POC Negative Negative Bilirubin, ur, POC Negative Negative Ketones, ur, POC Negative Negative Specific [place], POC 1.010 1.003 - 1.030 Blood, ur, POC Negative Negative pH, ur, POC 7.5 5.0 - 8.0 Protein, ur, POC Negative Negative Urobilinogen, urine, POC 0.2 0.2 - 1.0 mg/dL Nitrite, ur, POC Negative Negative Leukocytes, ur, POC Negative Negative Lot Number [id number] Urine 11/29/2024 10:2 4 AM CDT Lei Novoa DO POINT OF CARE TEST [...] Electronically signed by: Miguel Watkins MD, PHD us Heidi West MD IMG MRI PROCEDURES Dorene sia Result * XR Pelvis 1 or 2 [...] position. Electronically signed by: Bull Curtis M.D. us Bella Caceres MD PhD IMG XR PROCEDURES Fi nal Result * Treponemal IgG/IgM Blood (11/08/2024 4:04 PM CDT) Treponemal IgG/IgM Nonreactive Nonreactive Comment: Interpretive Data: If test is reported as EQUIVOCAL, a new sample should be drawn in two weeks for testing. Current interpretive data was last revised on 2018. Blood 11/08/2024 4:04 PM CDT 11/08/2024 5:14 PM CDT us Heidi West MD LAB MICROBIOLOGY - GENE RAL [place] [address] * HIV 1/2 Antibody plus p24 Antigen Blood (11/08/2024 4:04 PM CDT) Pathologist [facility] HIV 1/2 ab + p24 ag Nonreactive [...] RAL ORDERABLES Final Result Performing Organization Address [facility] [place] [address] * Methylmalonic acid, serum (11/08/2024 4:04 PM CDT) [facility] MMA 0.20 <=0.40 nmol/mL [facility] Lab Comment: ADDITIONAL INFORMATION This test was developed and its performance characteristics determined by [facility] in a manner consistent with CLIA requirements. This test has not been cleared or approved by the U.S. Food and Drug Administration. Test Performed by: [facility] - [address] [address] Nursing Unit Manager: Laz Velasquez Ph.D.; CLIA# [id number] Blood 11/08/2024 4:04 PM CDT 11/08/2024 7:28 PM CDT Heidi West MD LAB BLOOD ORDERABLES Fi nal Result Performing Organization Address [facility] Co de Phone Number [facility] [place] [address] Street ref Lab * RPR Blood (11/08/2024 4:04 PM CDT) RPR Nonreactive Nonreactive Blood 11/08/2024 4:04 PM CDT 11/08/2024 5:14 PM CDT Heidi West MD LAB MICROBIOLOGY - GENE RAL ORDERABLES Final Result Performing Organization Address City/[facility]/ZIP Co de Phone Number KIM MARTINO [facility] [place] [address] * Vitamin B1 (11/08/2024 4:04 PM CDT) Pathologist [facility] Thiamine (Vit B1) 151 70 - 180 nmol/L Anand ref Lab Comment: ADDITIONAL INFORMATION This test was developed and its performance characteristics determined by [facility] in a manner consistent with CLIA requirements. This test has not been cleared or approved by the U.S. Food and Drug Administration. Test Performed by: [facility] - [address] [address] Nursing Unit Manager: Laz Velasquez Ph.D.; CLIA# [id number] Blood 11/08/2024 4:04 PM CDT 11/08/2024 5:18 PM CDT Heidi West MD LAB BLOOD ORDERABLES Fi nal Result [facility] [address] Street ref Lab * Magnesium (11/08/2024 4:04 PM CDT) Pathologist [facility] Magnesium 2.2 1.4 - 2.5 mg/dL Blood 11/08/2024 4:04 PM CDT 11/08/2024 5:14 PM CDT Heidi West MD LAB BLOOD ORDERABLES Fi nal Result Performing Organization Address City/[facility]/ZIP Co de Phone Number KIM [facility] [place] [address] * Vitamin B12 (11/08/2024 4:04 PM CDT) Vitamin B12 554 230 - 1,250 pg/mL Blood 11/08/2024 4:04 PM CDT 11/08/2024 5:14 PM CDT Heidi West MD LAB BLOOD ORDERABLES Fi nal Result Performing Organization Address [facility] de Phone Number [facility] [place] [address] * Fundus Photos/FAF - OU - Both [...] periphery OU. Normal background auto fluorescence OU. Jai Padron MD OPHTH PHOTOGRAPHY Ed ited [...] only and have not been reviewed by [facility] Radiology. There will be no report generated by a [facility] Radiologist. Narrative RAD_PACS_[facility] - 11/08/2024 2:34 [...] PM CDT Manuelito Reeves MD LAB MICROBIOLOGY - GENERAL [facility] Final Result KIM [address] [facility] [place] [address] * PAP SMEAR WITH HPV (01/05/2019) Pathologist [facility] Pap smear Normal Historical Provider HEALTH MAINTENANCE Final Result * Screening Mammogram (06/09/2017 8:07 PM E COMMERCE DEVELOPER) Anatomical Region Laterality Modality Breast N/A Mammography 06/09/2017 8:07 PM E COMMERCE DEVELOPER Narrative 06/09/2017 10:46 PM E COMMERCE DEVELOPER SUSIE ELIZABETH M.D. FINAL REPORT ACC# Date Time Exam [id number] Jun 09, 2017 15:04:00 [facility] [id number] Chest Sonogram L [id number] Jun 09, 2017 14:07:00 [facility] [id number] Dia Mamm, inc CAD, unilat L Technologist(s): June [...] ELIZABETH M.D. on Jun 09 2017 4:44P [id number] ELIZABETH M.D. FINAL REPORT Attending: SWATI MI Requesting: Swati Mi Requesting Fax: Attending Fax: Attending ID: [id number] Requesting ID: [id number] Report To 1 ID: [id number] Report To 1 Name: , Report To 1 FAX: NextGen Order #: Procedure Note Miscellaneous, Not In File - 06/09/2017 SUSIE ELIZABETH M.D. FINAL REPORT ACC# Date Time Exam [id number] Jun 09, 2017 15:04:00 [facility] [id number] Chest Sonogram L [id number] Jun 09, 2017 14:07:00 [facility] [id number] Dia Mamm, inc CAD, unilat L Technologist(s): June [...] ELIZABETH M.D. on Jun 09 2017 4:44P [id number] ELIZABETH M.D. FINAL REPORT Attending: SWATI MI Requesting: Swati Mi Requesting Fax: Attending Fax: Attending ID: [id number] Requesting ID: [id number] Report To 1 ID: [id number] Report To 1 Name: , Report To 1 FAX: NextGen Order #: Swati Mi MD IMG MAMMO PROCEDURES Final Result * Colonoscopy (03/14/2015) Anatomical Region Laterality Modality Other Historical Provider ENDOSCOPY PROCEDURES Dorene l Result from Last 3 Months or Most Recently Relevant to Health Maintenance Insurance COMM[employer]CIAL [facility]IC [facility] CLAIMS COMM[employer]CIAL [facility] [place] [address] COMMERCIAL GENERIC [facility] CLAIMS Care Teams 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
--- OUTSIDE RECORDS SUMMARY | 2025-02-04 08:59 | XMS_ITS ---
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 Name Role Phone Jhonathan Gonzalez MD Unavailable [phone] Lei Novoa DO Primary Care Provider Active [...] (11/29/2024): Added automatically from request for surgery [id number] Contracture of left Achilles tendon 09/05/2021 Overview (11/29/2024): Added automatically from request for surgery [id number] Left foot pain 09/05/2021 Overview (11/29/2024): Added automatically from request for surgery [id number] Osteophyte of left foot 09/05/2021 Overview (11/29/2024): Added automatically from request for surgery [id number] Planovalgus deformity of foot, acquired, left Overview (11/29/2024): Added automatically from request for surgery [id number] Urinary retention with incomplete bladder emptyi ng [...] due to retention and 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 -She previously tried tamsulosin for difficulty emptying but doesn't feel it helped. -She is interested in discussing Interstim device for further treatment of her urinary issues. Patient does report she will be moving to [place] early next year. I informed her it may take some time to get in with Dr. Waters and she may want to consider finding someone locally in [place] to do procedure so they can monitor locally. We will schedule her with Dr. Waters for now but she will look for urologist in [place] area. PLAN: -Schedule f/u with Dr. Waters [...]
[2025-02-04 09:00] VITALS: BP 150/81; PULSE 102; RESP 20; TEMP 36.8; O2SAT 98
[2025-02-04 10:25] LABS: Add Urine Microscopic? NO; Appearance Urine Clear (Clear); Glucose Urine UA Negative (Negative); Leukocyte Esterase Ur Negative LEU/UL (Negative); Nitrate Urine Negative (Negative); Specific Grav Ur 1.006 (1.001-1.035)
[2025-02-04 10:35] LABS: Hematocrit 33.7 % (37.0-47.0); Hemoglobin 11.5 g/dL (12.0-15.0); Immature Granulocyte Percent A 0.2 % (0-0.5); Lymphocytes Absolute Auto 0.75 K/mm3 (0.9-3.2); Mean Corpuscular HGB Conc 34.1 g/dl (32-36); Mean Corpuscular Hemoglobin 28.7 pg (26-34); Mean Corpuscular Volume 84.0 fl (80-100); Nucleated Red Blood Cells Absolute Auto 0.000 K/mm3 (0.0-0.012); Nucleated Red Blood Cells Perc 0.0 % (0.0-0.2); Platelet Count Result 268 k/mm3 (150-375); Red Blood Count 4.01 M/mm3 (4.2-5.4); White Blood Count 6.2 K/mm3 (4.5-10.0)
[2025-02-04 10:45] LABS: Alanine Aminotransferase 34 U/L (6-35); Albumin Level 4.1 g/dL (3.5-5.1); Alkaline Phosphatase 70 U/L (38-126); Anion Gap 6 mmol/L (4-12); Aspartate Amino Transferase 37 U/L (14-36); Bilirubin,Total 0.3 mg/dL (0.2-1.3); Blood Urea Nitrogen 8 mg/dL (7-17); Calcium 9.2 mg/dL (8.4-10.2); Carbon Dioxide 26 mmol/L (22-30); Chloride 98 mmol/L (98-107); Estimated CRCL calculation 82 ml/min; Estimated Glomerular Filt Rate > 60; Glucose 96 mg/dL (65-110); Potassium 3.9 mmol/L (3.4-5.0); Sodium 130 mmol/L (137-145); Total Protein 7.0 g/dL (6.3-8.2)
--- NOTE | 2025-02-04 10:50 | ED.GENADULT ---
HPI - General Adult General Chief complaint: Urogenital-Female Stated complaint: unable to urinate Time Seen by Provider: 02/04/25 10:00 History of Present Illness HPI narrative: Patient is a 59-year-old female who presents ER with concerns for urinary retention. Unable to urinate normally since yesterday morning. She has had slow decrease in her ability urinate. She has history of hyponatremia and urinary retention. Hyponatremia is related to excessive water drinking. She has modified her diet since discharge. No fevers or chills or sweats. No dysuria. Greater than 350 mL of urine on bedside bladder scan. Related Data Home Medications ?Medication ?Instructions ?Recorded ?Confirmed ?Last Taken ?Type buspirone 10 mg tablet 30 mg PO BID 06/25/19 01/29/25 01/28/25 16:00 History clonazepam 0.5 mg tablet 0.5 mg PO .COMPLEX 06/25/19 01/29/25 01/28/25 16:00 History losartan 50 mg tablet 100 mg PO QAM 09/21/24 01/29/25 01/28/25 09:00 History carboxymethylcellulose sodium 0.5 2 drp EACH EYE Q4-6H PRN dry eye(s) 01/29/25 01/29/25 Unknown History % eye drops (Refresh Tears) cariprazine 1.5 mg capsule 1.5 mg PO QAM 01/29/25 01/29/25 01/28/25 09:00 History (Vraylar) clomipramine 25 mg capsule 25 mg PO HS 01/29/25 01/29/25 01/27/25 21:30 History clonazepam 1 mg tablet 1 mg PO QAM 01/29/25 01/29/25 01/28/25 09:00 History hydrochlorothiazide 10 mg/mL oral 25 mg PO QAM 01/29/25 01/29/25 01/28/25 09:00 History suspension (Inzirqo) hydroxyzine HCl 25 mg tablet 25 mg PO DAILY PRN anxiety 01/29/25 01/29/25 01/28/25 16:00 History metoprolol tartrate 10 mg/mL oral 25 mg PO TID 01/29/25 01/29/25 01/28/25 19:30 History solution (Lopressor) mirtazapine 15 mg disintegrating 15 mg translingual HS 01/29/25 01/29/25 01/27/25 21:30 History tablet omeprazole 20 mg delayed 20 mg PO BID 01/29/25 01/29/25 01/28/25 09:00 History release,disintegrating tablet Allergies Allergy/AdvReac Type Severity Reaction Status Date / Time tramadol Allergy Unknown RASH Verified 02/04/25 09:03 cephalexin (From Keflex) AdvReac Mild Anxiety Verified 02/04/25 09:03 Review of Systems Review of Systems: All systems reviewed & are unremarkable except as noted in HPI and below Constitutional: Constitutional: Reports no additional constitutional complaints ENT: Reports system reviewed and no additional complaints, except as documented Cardiovascular: Cardiovascular: Reports no additional cardiovascular complaints Respiratory: Respiratory: Reports no additional respiratory complaints Gastrointestinal: Gastrointestinal: Reports no additional gastrointestinal complaints ON LICENSE OF [facility] Past Medical History Medical History (Updated 02/04/25 @ 11:32 by Jung Benjamin MD) OCD (obsessive compulsive disorder) Anxiety and depression Breast cancer Hypertension Dysphagia Anemia Hyponatremia Osteoarthritis GERD (gastroesophageal reflux disease) DAVID (generalized anxiety disorder) Urinary retention Family History Family History Mother Uterine cancer Father Lung cancer Sibling Diabetes mellitus Social History Social History Smoking status: Never smoker Alcohol intake: never Substance use: never Substance use type: does not use Lack of Transportation: No Lack of Food: Never True Current Housing: I Have Housing Concerned About Future Housing: No Difficulty Paying Gas/Electric Bills: No Difficulty Paying for Meds: No Currently Unemployed: No Education: Bachelor's Degree Difficulty w/ Childcare or Family Care: No Gender identity (if verbalized by the patient): Female Spiritual care concerns: No Exam Narrative: GENERAL: Well-appearing, well-nourished, and in no acute distress. HEAD: Normocephalic, atraumatic. ENT: Mucous membranes moist. CHEST: Clear to auscultation. No respiratory distress. HEART: Regular rate and rhythm. Normal peripheral pulses. ABDOMEN: Soft, nontender, nondistended. EXTREMITIES: Normal range of motion. No edema. NEURO: Alert and oriented x3. PSYCH: Normal mood and affect. Course Course Emergency Course: Sodium normal. Urinalysis without infection. Discharge home. May follow up with Urology or PCP to have Carey removed. Vital Signs Vital signs: Vital Signs Temperature 98.2 F 02/04/25 09:00 Pulse Rate 102 H 02/04/25 09:00 Respiratory Rate 20 02/04/25 09:00 Blood Pressure 150/81 H 02/04/25 09:00 Pulse Oximetry 98 02/04/25 09:00 Oxygen Delivery Room Air 02/04/25 09:00 Temperature 98.2 F 02/04/25 09:00 Pulse Rate 102 H 02/04/25 09:00 Respiratory Rate 20 02/04/25 09:00 Blood Pressure 150/81 H 02/04/25 09:00 Pulse Oximetry 98 02/04/25 09:00 Oxygen Delivery Room Air 02/04/25 09:00 Medical Decision Making Vital Signs Vital Signs: Vital Signs Temperature 98.2 F 02/04/25 09:00 Pulse Rate 102 H 02/04/25 09:00 Respiratory Rate 20 02/04/25 09:00 Blood Pressure 150/81 H 02/04/25 09:00 Pulse Oximetry 98 02/04/25 09:00 Oxygen Delivery Room Air 02/04/25 09:00 Temperature 98.2 F 02/04/25 09:00 Pulse Rate 102 H 02/04/25 09:00 Respiratory Rate 02/04/25 09:00 Blood Pressure 150/81 H 02/04/25 09:00 Pulse Oximetry 98 02/04/25 09:00 Oxygen Delivery Room Air 02/04/25 09:00 Lab Data 02/04/25 10:29 02/04/25 10:29 Labs: Lab Results 02/04/25 02/04/25 Range/Units 10:19 10:29 WBC 6.2 (4.5-10.0) K/mm3 RBC 4.01 L (4.2-5.4) M/mm3 Hgb 11.5 L (12.0-15.0) g/dL Hct 33.7 L (37.0-47.0) % MCV 84.0 (80-100) fl MCH 28.7 (26-34) pg MCHC 34.1 (32-36) g/dl RDW 13.2 (11.5-14.5) % Plt Count 268 (150-375) k/mm3 MPV 9.0 (7.4-10.4) fl Immature Gran % (Auto) 0.2 (0-0.5) % Neut % (Auto) 72.5 (45.5-73.1) % Lymph % (Auto) 12.2 L (18.3-44.2) % [place] % (Auto) 12.5 H (2.6-8.5) % Eos % (Auto) 2.1 (0-4.4) % Baso % (Auto) 0.5 (0.2-1.2) % Lymph # (Auto) 0.75 L (0.9-3.2) K/mm3 [place] # (Auto) 0.8 H (0.1-0.6) K/mm3 Eos # (Auto) 0.1 (0-0.3) K/mm3 Baso # (Auto) 0.0 (0.0-0.1) K/mm3 Abs Immat Gran (auto) 0.01 (0.00-0.031) K/mm3 Absolute Neuts (auto) 4.5 (1.3-6.7) K/mm3 Absolute Nucleated RBC 0.000 (0.0-0.012) K/mm3 Nucleated RBC % 0.0 (0.0-0.2) % Sodium 130 L (137-145) mmol/L Potassium 3.9 (3.4-5.0) mmol/L Chloride 98 (98-107) mmol/L Carbon Dioxide 26 (22-30) mmol/L Anion Gap 6 (4-12) mmol/L BUN 8 (7-17) mg/dL Creatinine 0.63 L (0.7-1.0) mg/dL Estim Creat Clear Calc 82 ml/min Estimated GFR > 60 (59 - ) Glucose 96 (65-110) mg/dL Calcium 9.2 (8.4-10.2) mg/dL Total Bilirubin 0.3 (0.2-1.3) mg/dL AST 37 H (14-36) U/L ALT 34 (6-35) U/L Alkaline Phosphatase 70 (38-126) U/L Total Protein 7.0 (6.3-8.2) g/dL Albumin 4.1 (3.5-5.1) g/dL Urine Color Yellow (Yellow) Urine Appearance Clear (Clear) Urine pH 8.0 (5.0-9.0) Ur Specific [place] 1.006 (1.001-1.035) Urine Protein Negative (Negative) mg/dL Urine Glucose (UA) Negative (Negative) mg/dL Urine Ketones Negative (Negative) mg/dL Ur Blood (Man) Negative (Negative) Urine Nitrate Negative (Negative) Urine Bilirubin Negative (Negative) Urine Urobilinogen 0.2 (<2.0) mg/dL Leukocyte Esterase Rfl Negative (Negative) YESSENIA/UL Discharge Plan Discharge Clinical Impression: Acute urinary retention Patient Disposition: Home Condition: Stable Instructions: Acute Urinary Retention in Women (ED) Additional Instructions: Return the ER if you have fever 100.4? F, you cannot keep down food or water, you develop severe abdominal pain, or you have other concerns. Patient Language: Mauritanian Prescriptions: No Action buspirone 10 mg tablet 30 mg PO BID Rx Instructions: Crush medication. clonazepam 0.5 mg tablet 0.5 mg PO .COMPLEX Rx Instructions: Clonazepam 0.5 mg orally every afternoon and at bedtime. Crush medication. losartan 50 mg tablet 100 mg PO QAM omeprazole 20 mg tablet,disintegrat, delay rel 20 mg PO BID Lopressor 10 mg/mL solution 25 mg PO TID clonazepam 1 mg tablet 1 mg PO QAM Rx Instructions: Crush medication. Vraylar 1.5 mg capsule 1.5 mg PO QAM Inzirqo 10 mg/mL suspension for reconstitution 25 mg PO QAM mirtazapine 15 mg tablet,disintegrating 15 mg translingual HS clomipramine 25 mg capsule 25 mg PO HS Rx Instructions: Open capsule and sprinkle on apple sauce. hydroxyzine HCl 25 mg tablet 25 mg PO DAILY PRN (Reason: anxiety) carboxymethylcellulose sodium [Refresh Tears] 0.5 % drops 2 drp EACH EYE Q4-6H PRN (Reason: dry eye(s)) tolvaptan 15 mg tablet 15 mg PO DAILY Qty: 5 0RF Follow-up/Referrals: Jhonathan Greer MD [Physician, Urology] - 1 Week Bright,Lei Barnett DO [Primary Care Provider, Unknown] - 1 Week
== END 2025-02-04 11:50 | disposition home or self-care (01) ==
PROVIDERS: Emergency Provider Emergency Medicine; PCP Family Medicine
DX: R33.9 Retention of urine, unspecified (principal); F41.9 Anxiety disorder, unspecified; F32.A Depression, unspecified; Z85.3 Personal history of malignant neoplasm of breast; I10 Essential (primary) hypertension; D64.9 Anemia, unspecified; M19.90 Unspecified osteoarthritis, unspecified site; K21.9 Gastro-esophageal reflux disease without esophagitis
CPT/HCPCS: 36415; 51702; 80053; 81003; 85025; 99283